=== PATIENT | female | born 1935 | race Caucasian/White ===

== ENCOUNTER 2017-02-15 11:43 | Emergency (ER) | payer MEDICARE, OTHER ==
[2017-02-15 12:47] VITALS: BP 180/100
--- NOTE | 2017-02-15 14:48 | UC ---
Valentín Sarabia Billy, scribed for Ally Kim DO on 02/15/17 at 1226 . General HPI - HPI Summary HPI Summary: Patient is an 81 year-old female with a history of peripheral neuropathy coming to [facility] with her for evaluation of left-sided facial swelling/droop since waking up this morning at 0630. Patient states that her symptoms have significantly improved since onset this morning. She denies any pain or numbness on her face. Denies any other symptoms such as changes in balance, coordination, confusion, slurred speech, or numbness, tingling, or weakness in the extremities. Patient has a history of glaucoma and recently switched to new eyedrops 3 days ago. - History of Current Complaint Chief Complaint: UCGeneralIllness Stated Complaint: SWOLLEN FACE Time Seen by Provider: 02/15/17 12:20 Hx Obtained From: Patient Onset/Duration: Gradual Onset, Lasting Hours, Still Present Timing: Constant Onset Severity: Moderate Current Severity: Moderate Pain Intensity: 0 Character: left-sided facial droop Aggravating: none Alleviating: none Associated Signs & Symptoms: Positive: Edema - percieved swelling of the face. Negative: Confusion, Chest Pain, Dizziness, Diaphoresis, Headache, Nausea, Syncope, SOB - Allergy/Home Medications Allergies/Adverse Reactions: Allergies Allergy/AdvReac Type Severity Reaction Status Date / Time NSAIDs Allergy See Comment Verified 07/30/16 10:55 PMH/Surg Hx/FS Hx/Imm Hx Endocrine History Of: Reports: Thyroid Disease Denies: Diabetes Cardiovascular History Of: Reports: Cardiac Disorders - murmur, Hypertension Respiratory History Of: Denies: COPD, Asthma GI/ History Of: Denies: Ulcer Cancer History Of: Denies: Breast Cancer - Surgical History Surgical History: Yes Surgery Procedure, Year, and Place: SCOLIOSIS. tonsils, deviated septum, carpal tunnel, rashard, cataracts - Family History Known Family History: Positive: Hypertension Negative: Cardiac Disease, Diabetes, Renal Disease, Respiratory Disease, Blood Disorder - Social History Occupation: Retired Lives: With Family Alcohol Use: Weekly Alcohol Amount: 2/week Substance Use Type: None Smoking Status (MU): Never Smoked Tobacco Review of Systems Constitutional: Negative Skin: Negative Eyes: Negative ENT: Negative Respiratory: Negative Cardiovascular: Negative Gastrointestinal: Negative Genitourinary: Negative Motor: Negative Neurovascular: Negative Musculoskeletal: Negative Neurological: Other - left-sided facial droop Psychological: Negative All Other Systems Reviewed And Are Negative: Yes Physical Exam Triage Information Reviewed: Yes Appearance: Well-Appearing, No Pain Distress, Well-Nourished Vital Signs: Initial Vital Signs Temp 98.6 F 02/15/17 12:02 Pulse 61 02/15/17 12:02 Resp 18 02/15/17 12:02 Pulse Ox 98 02/15/17 12:02 Vital Signs Reviewed: Yes Eyes: Positive: Conjunctiva Clear. Negative: Discharge ENT: Positive: Normal ENT inspection Neck: Positive: Supple, Nontender Respiratory: Positive: Lungs clear, Normal breath sounds, No respiratory distress, No accessory muscle use Cardiovascular: Positive: RRR, No Murmur Musculoskeletal Exam: Normal Musculoskeletal: Positive: Strength Intact Neurological: Positive: Alert, Other: - Left-sided facial droop. Otherwise sensation and strength are intact and symmetrical bilaterally. Cranial nerves intact except for facial nerve. No droop visualized in the forehead or eyes. no cerebellar signs Psychological Exam: Normal Psychological: Positive: Age Appropriate Behavior Skin Exam: Normal, Other - Skin is warm and dry. There is no tenderness, induration, redness, swollen lymph nodes, or evidence of infection of the face. Course/Dx - Differential Dx - Multi-Symptom Differential Diagnoses: CVA, Other - tia, nerve palsy nos Provider Diagnoses: r/o cva - Physician Notifications Discussed Patient Care With: Dr. Haque ([facility]) @ [id number]: will see patient in the ED. Instructed by Provider To: Transfer Discharge - Discharge Plan Condition: Stable Disposition: TRANS HIGHER LVL OF CARE FAC Referrals: Bijan Mahmood MD [Primary Care Provider] - The documentation as recorded by the Valentín levy Billy accurately reflects the service I personally performed and the decisions made by me, Ally Kim DO.
== END 2017-02-15 12:57 | disposition short-term general hospital (02) ==
LOC: UCEAST 11:43
DX: R29.810 Facial weakness (principal); R60.0 Localized edema; Z88.6 Allergy status to analgesic agent; E07.9 Disorder of thyroid, unspecified; I10 Essential (primary) hypertension; Z90.49 Acquired absence of other specified parts of digestive tract; Z98.49 Cataract extraction status, unspecified eye
CPT/HCPCS: 99213; G0463

== ENCOUNTER 2017-02-15 13:28 | Emergency (ER) | payer MEDICARE, OTHER ==
[2017-02-15 15:34] LABS: Hematocrit 41 % (35-47); Hemoglobin 13.6 g/dl (12.0-16.0); Mean Corpuscular HGB Conc 34 g/dl (31-36); Mean Corpuscular Hemoglobin 29 pg (27-31); Mean Corpuscular Volume 85 fL (80-97); Mean Platelet Volume 8 um3 (7.4-10.4); Red Blood Count 4.76 10^6/ul (4.0-5.4); Red Cell Distribution Width 14 % (10.5-15); White Blood Count 9.9 10^3/ul (3.5-10.8)
[2017-02-15 16:18] LABS: Albumin 4.1 g/dL (3.2-5.2); BUN/Creatinine Ratio 16.2 (8-20); C Reactive Protein 53.34 mg/L (< 5.00); Calcium 9.7 mg/dL (8.6-10.3); EGFR African American 106.3 (>60); EGFR Non-African American 82.6 (>60); Globulin 3.4 g/dL (2-4); Potassium 4.5 mmol/L (3.5-5.0); Total Protein 7.5 g/dL (6.4-8.9)
[2017-02-15] MEDS ORDERED: Iohexol 300* (CONTRAST) 10 ML SDV IV ONE (16:22)
[2017-02-15 16:54] VITALS: BP 158/72
--- NOTE | 2017-02-15 16:57 | RAD ---
Indication: Left facial droop, stroke. CT of the brain was performed without IV contrast. Ventricular structures are midline. No midline shift is noted. Central and cortical atrophy noted. No evidence of intracranial mass or hemorrhage. Periventricular lucency consistent with chronic ischemic White matter change is noted. Mastoid air cells and paranasal sinuses are grossly unremarkable. IMPRESSION: Age-related atrophy with no evidence of intracranial mass or hemorrhage. Chronic ischemic White matter change is noted.
--- NOTE | 2017-02-15 17:38 | RAD ---
INDICATION: LEFT facial swelling. Question cellulitis and abscess. LEFT facial droop. COMPARISON: None. TECHNIQUE: Multidetector CT base of the skull through mandible with 75 mL Omnipaque 300 IV contrast. Multiplanar reformation. REPORT: Artifact from dental amalgam. Mild stranding in the LEFT face subcutaneous tissue plane extending down to the muscular fascia at the level of the mandibular body and angle. No loculated abscess collection evident. Unremarkable parotid and LEFT submandibular glands. Fatty replacement of the RIGHT submandibular gland. No lymphadenopathy evident within the [id number]. Unremarkable pharyngeal mucosal space contours and symmetric parapharyngeal fat. Patent bilateral internal jugular veins. Calcific plaque at the carotid bifurcations with suggestion of approximate 50% LEFT proximal internal carotid artery stenosis. No orbital inflammatory process or hematoma evident. Calcification of the RIGHT ocular lens noted. Mild retained secretions at the ethmoid sinuses. Negative for paranasal sinus fluid levels. Clear mastoid air spaces. Negative for fracture or osteolysis. Multilevel cervical degenerative spondylosis and facet joint osteoarthritis. Disc space narrowing is severe at C3-C4, C4-C5, and C5-C6. IMPRESSION: 1. Mild LEFT face soft tissue edema which may reflect cellulitis in the appropriate clinical context. No loculated abscess collection evident. 2. Calcific plaque at the carotid bifurcations with suggestion of approximate 50% LEFT proximal internal carotid artery stenosis.
--- NOTE | 2017-02-15 18:59 | ED ---
Francisco Sarabia Adam, scribed for Oscar Haque MD on 02/15/17 at 1421 . Neurological HPI - HPI Summary HPI Summary: Pt is an 81 year old female presenting with facial swelling. She states that when she woke up this morning the left side of her face was swollen. She states that it felt "stretchy" when she tried to smile. Since then she states that the swelling has decreased. She also presents with redness in the cheeks which is new. She denies drooling, difficulty forming words, and difficulty swallowing or drinking. She denies any pain/weakness in her extremities, blurred/double vision, abdominal pain, CARDOZA, neck pain, dental pain (teeth cleaned last month), or new eye complaints (she has chronic dryness and uses drops). She recently began using new eye drops but she states that the ingredients are the same as the old drops. She denies any recent illness, recent falls, or eating anything out of the ordinary. PMHx of HTN, peripheral neuropathy, and glaucoma. No Hx of CVA or [place]. Former smoker ("years ago"). - History of Current Complaint Chief Complaint: EDNeurologicalDeficit Stated Complaint: STROKE LIKE SYMPTOMS Time Seen by Provider: 02/15/17 14:06 Hx Obtained From: Patient Hx Last Menstrual Period: post menopausal Onset/Duration: Gradual Onset, Started hours ago, Still Present Timing: Constant Onset Severity: Moderate Current Severity: Mild Neurological Deficit Location: Facial Pain Intensity: 0 Pain Scale Used: 0-10 Numeric Character: Other: - Facial swelling Aggravating: Unknown Alleviating: Nothing Associated Signs and Symptoms: Positive: Negative - Allergy/Home Medications Allergies/Adverse Reactions: Allergies Allergy/AdvReac Type Severity Reaction Status Date / Time NSAIDs Allergy See Comment Verified 07/30/16 10:55 PMH/Surg Hx/FS Hx/Imm Hx Endocrine/Hematology History: Reports: Hx Thyroid Disease Denies: Hx Diabetes Cardiovascular History: Reports: Hx Hypertension Respiratory History: Denies: Hx Asthma, Hx Chronic Obstructive Pulmonary Disease (COPD) GI History: Denies: Hx Ulcer Musculoskeletal History: Reports: Hx Rheumatoid Arthritis Denies: Hx Osteoporosis - Surgical History Surgery Procedure, Year, and Place: SCOLIOSIS. tonsils, deviated septum, carpal tunnel, rashard, cataracts Infectious Disease History: No Infectious Disease History: Denies: Hx Hepatitis, Hx Human Immunodeficiency Virus (HIV), History Other Infectious Disease, Traveled Outside the [place] in Last 30 Days - Family History Known Family History: Negative: Renal Disease, Respiratory Disease, Blood Disorder - Social History Occupation: Retired Lives: With Family - Alcohol Use: Weekly Alcohol Amount: 2/week Hx Substance Use: No Substance Use Type: Reports: None Hx Tobacco Use: Yes Smoking Status (MU): Former Smoker - "Years ago" Review of Systems Negative: Fever Negative: Blurred Vision, Diplopia Negative: Dental Pain Negative: Abdominal Pain Positive: Edema - Left side of face. Negative: Myalgia Positive: Other - Redness in cheeks Neurological: Negative Negative: Headache, Weakness All Other Systems Reviewed And Are Negative: Yes Physical Exam - Summary Physical Exam Summary: The patient is well-nourished in no acute distress and in no acute pain. The skin is warm and dry and skin color reflects adequate perfusion. HEENT: Teeth in good repair and nontender to percussion. The head is normocephalic and atraumatic. The pupils are pinpoint, equal and reactive. No ptosis. Erythema around the eyes and cheeks. Swelling of left maxillary area with some warmth. Nares are patent and without drainage. Mouth reveals moist mucous membranes and the throat is without erythema and exudate. The external ears are intact. TM's normal. Neck is supple with full range of motion and non-tender. There are no carotid bruits. There is no neck vein distension. Respiratory: Chest is non-tender. Lungs are clear to auscultation and breath sounds are symmetrical and equal. Cardiovascular: Heart is regular rate and rhythm. There is no murmur or rub auscultated. There is no peripheral edema and pulses are symmetrical and equal. Abdomen: The abdomen is soft and non-tender. There are normal bowel sounds heard in all four quadrants and there is no organomegaly palpated. Musculoskeletal: There is no back pain noted. Extremities are non-tender with full range of motion. There is good capillary refill. There is no peripheral edema or calf tenderness elicited. Neurological: Patient is alert and oriented to person, place and time. The patient has symmetrical motor strength in all four extremities. Cranial nerves are grossly intact. Deep tendon reflexes are symmetrical and equal in all four extremities. Negative drift of upper and lower extremities. Able to do finger-to -nose. Able to do [id number]. No focal weakness noted. Psychiatric: The patient has an appropriate affect and does not exhibit any anxiety or depression. Triage Information Reviewed: Yes Vital Signs On Initial Exam: Initial Vitals Temp Pulse Resp BP Pulse Ox 98.6 F 58 18 159/77 98 02/15/17 13:58 02/15/17 13:58 02/15/17 13:58 02/15/17 13:58 02/15/17 13:58 Vital Signs Reviewed: Yes Diagnostics - Vital Signs Vital Signs Temp Pulse Resp BP Pulse Ox 02/15/17 13:58 98.6 F 58 18 159/77 98 - Laboratory Lab Results: Lab Results 02/15/17 02/15/17 02/15/17 Range/Units 15:25 15:25 15:25 WBC 9.9 (3.5-10.8) 10^3/ul RBC 4.76 (4.0-5.4) 10^6/ul Hgb 13.6 (12.0-16.0) g/dl Hct 41 (35-47) % MCV 85 (80-97) fL MCH 29 (27-31) pg MCHC 34 (31-36) g/dl RDW 14 (10.5-15) % Plt Count 469 H (150-450) 10^3/ul MPV 8 (7.4-10.4) um3 Neut % (Auto) 75.5 (38-83) % Lymph % (Auto) 8.8 L (25-47) % [place] % (Auto) 9.9 H (1-9) % Eos % (Auto) 5.3 (0-6) % Baso % (Auto) 0.5 (0-2) % Absolute Neuts (auto) 7.5 (1.5-7.7) 10^3/ul Absolute Lymphs (auto) 0.9 L (1.0-4.8) 10^3/ul Absolute Monos (auto) 1.0 H (0-0.8) 10^3/ul Absolute Eos (auto) 0.5 (0-0.6) 10^3/ul Absolute Basos (auto) 0.1 (0-0.2) 10^3/ul Absolute Nucleated RBC 0.01 10^3/ul Nucleated RBC % 0.1 Sodium 130 L (133-145) mmol/L Potassium 4.5 (3.5-5.0) mmol/L Chloride 94 L (101-111) mmol/L Carbon Dioxide 32 (22-32) mmol/L Anion Gap 4 (2-11) mmol/L BUN 11 (6-24) mg/dL Creatinine 0.68 (0.51-0.95) mg/dL Est GFR ( Amer) 106.3 (>60) Est GFR (Non-Af Amer) 82.6 (>60) BUN/Creatinine Ratio 16.2 (8-20) Glucose 102 H (70-100) mg/dL Lactic Acid 0.6 (0.5-2.0) mmol/L Calcium 9.7 (8.6-10.3) mg/dL Total Bilirubin 1.00 (0.2-1.0) mg/dL AST 24 (13-39) U/L ALT 13 (7-52) U/L Alkaline Phosphatase 50 (34-104) U/L C-Reactive Protein 53.34 H (< 5.00) mg/L Total Protein 7.5 (6.4-8.9) g/dL Albumin 4.1 (3.2-5.2) g/dL Globulin 3.4 (2-4) g/dL Albumin/Globulin Ratio 1.2 (1-3) Result Diagrams: 02/15/17 15:25 02/15/17 15:25 Lab Statement: Any lab studies that have been ordered have been reviewed, and results considered in the medical decision making process. - CT BRAIN CT Interpretation Completed By: Radiologist - IMPRESSION: Age-related atrophy with no evidence of intracranial mass or hemorrhage. Chronic ischemic White matter change is noted. MAXILLOFACIAL CT Interpretation Completed By: Radiologist - IMPRESSION: 1. Mild LEFT face soft tissue edema which may reflect cellulitis in the appropriate clinical context. No loculated abscess collection evident. 2. Calcific plaque at the carotid bifurcations with suggestion of approximate 50% LEFT proximal internal carotid artery stenosis. Re-Evaluation - Re-Evaluation First Eval Re-Evaluation Time: 18:05 - Reviewed CT results. Patient will be discharged home with abx. Course/Dx - Differential Dx Differential Diagnoses Neuro: Positive: Cerebrovascular Accident, Transient Ischemic Attack, Other - cellulitis - Diagnoses Provider Diagnoses: Facial cellulitis Discharge - Discharge Plan Condition: Stable Disposition: HOME Prescriptions: Cephalexin CAP* [Keflex CAP*] 500 mg PO QID #28 cap Patient Education Materials: Cellulitis (ED) Referrals: Bijan Mahmood MD [Primary Care Provider] - Additional Instructions: Follow up with Dr. Mahmood this week. The documentation as recorded by the Francisco levy Adam accurately reflects the service I personally performed and the decisions made by me, Oscar Haque MD.
== END 2017-02-15 18:41 | disposition home or self-care (01) ==
LOC: ED 13:28
DX: L03.211 Cellulitis of face (principal); R60.0 Localized edema; R29.810 Facial weakness; Z88.6 Allergy status to analgesic agent; E07.9 Disorder of thyroid, unspecified; I10 Essential (primary) hypertension; Z90.49 Acquired absence of other specified parts of digestive tract; Z98.49 Cataract extraction status, unspecified eye
CPT/HCPCS: 36415; 70450; 70487; 80053; 83605; 85025; 86140; 99283; Q9967

== ENCOUNTER 2018-03-13 23:23 | Observation (INO) | payer MEDICARE, OTHER ==
[2018-03-13] MEDS ORDERED: Ondansetron INJ* 2 MG/ML VIAL IV ONE (23:47)
[2018-03-13] MEDS ORDERED: NS 0.9% 1000 ML* 1,000 ML IV ONE (23:47)
[2018-03-14 00:34] LABS: INR 0.9 (0.77-1.02)
[2018-03-14 00:40] LABS: EGFR Non-African American 55.4 (>60)
--- OUTSIDE RECORDS SUMMARY | 2018-03-14 00:41 | XMS REPORT ---
:1935 External Reference #:[id number] Author Organization [facility] Address [address] [address] Phone [phone] Care Team Providers Name Role Phone Bijan Mahmood MD Primary Care Physician Unavailable Payers Type Date Identification Numbers Payment Provider Subscriber Medicare Primary Effective: Policy Number: Medicare Marisa Sinclair 1998 [id number] PayID: [id number] [address] [place] [address] Medigap Part B Effective: Policy Number: Healthsmart Benefit Marisa Sinclair 2012 [id number] Solution Group Number: [id number] [address] PayID: [id number] VICTORIANO Botello [id number] Advance Directives Type Date Description Status Comment Other Directive 01/18/2016 Living Will Current and Verified Other Directive 07/11/2015 Health Care Proxy Current and Verified Problems Date Description Provider Status Onset: 02/09/2013 Benign essential hypertension Kayla Marinelli M.D. Active Onset: 02/09/2013 Menopausal and postmenopausal disorders Kayla Marinelli M.D. Active Onset: 02/09/2013 Hypothyroidism Kayla Marinelli M.D. Active Onset: 02/09/2013 Benign paroxysmal positional vertigo Kayla Marinelli M.D. Active Onset: 02/09/2013 Sprain of wrist and/or hand Kayla Marinelli M.D. 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 Cigarette Use Pack Years - 11 ETOH Use 02/23/2017 2 drinks per week Smoking Patient is a former smoker Recreational Drug Use Never Used Drugs Smoking Started at 16, quit smoking in 1992, was a light smoker Daily Caffeine Consumes on average 1 cup of regular coffee per day Exercise Type/Frequency Exercises rarely Exercise Type/Frequency used to walk before vertigo General Hx Text 2 children Allergies, Adverse Reactions, Alerts Date Description Reaction Status Severity Comments 02/09/2013 NKDA active Medications Medication Date Status Form Strength Qnty SIG Indications Ordering Provider Amlodipine 03/14/ Active Tablets 5mg 90tabs take 1 I10 Bijan Besylate 2012 tablet by mary Marcano.DTete,FACP every morning Restasis 02/09/ Active Emulsion 0.05% 2units one gtts Kayla 2012 ou once a karl Marinelli M.D. Blood Pressure 02/09/ Active Kit 1units ck in am I10 Kayla Monitor 2012 and Yves, Automatic With evening M.D. Small Cuff Enalapril 02/09/ Active Tablets 20mg 180tab take 1 Bijan Maleate 2012 s tablet by mary Marcano.Norbert,FACP twice a day Levothyroxine 02/09/ Active Tablets 50mcg 90tabs take 1 Bijan Sodium 2012 tablet by mary Marcano M.D.,FACP once daily Vitamin B-12 CR / Active Tablets ER 1000mcg 1 po qd Unknown 0000 Mag64 / Active Tablets ER 535(64mg) once a Unknown 0000 mg day Vitamin B 6 / Active Lozenges 100mcg once a Unknown 0000 day Aspirin 81 / Active Tablets DR 81mg po qd Unknown 0000 Caltrate 600+D / Active Chewtabs 600-400mg- 1 po bid Unknown 0000 Unit Miralax / Active Packet [id number] 1mon 17 gm qd Unknown 0000 prn Cosopt PF / Active Solution 22.3-6.8mg Unknown 0000 /ml Latanoprost / Active Solution 0.005% both eyes Unknown 0000 once daily Ketoconazole 07/31/ Hx Cream 2% 60gm apply Other 2016 - once Ordering 02/23/ daily to Provider 2017 affected area Alprazolam 04/20/ Hx Tablets 0.25mg 2tabs 1/2- 1 300.09 Kayla 2012 - tab 20 Yves, 09/25/ min prior M.D. 2012 to dental work Amlodipine 03/14/ Hx Tablets 5mg 30tabs take 1 401.1 Kayla Besylate 2012 - tablet by Yves, 08/16/ mouth M.D. 2013 every morning Chlorthalidone 02/23/ Hx Tablets 25mg 30tabs 1 po am 401.1 Kayla 2012 - Yves 09/25/ M.D. 2012 Prazosin HCL 02/09/ Hx Capsules 2mg 1 po qd Kayla 2012 - Yves, 12/07/ M.D. 2013 Atenolol 02/09/ Hx Tablets 50mg 30tabs 11/16 tab Kayla 2012 - po at Yves, 03/14/ bedtime M.D. 2012 Dorzolamide 02/09/ Hx Solution 22.3-6.8mg 10ml one drop Kayla HCL/Timolol 2012 - /ml right eye Arline Marinelli 05/02/ bid M.D. 2013 Travatan Z 02/09/ Hx Solution 0.004% 5ml 1 drop in Kayla 2012 - right Yves, 11/24/ eyes qhs M.D. 2016 Prempro 02/09/ Hx Tablets 0.3-1.5mg 30tabs take 1 Kayla 2012 - tablet by Yves, 04/19/ mouth M.D. 2016 once weekly Glucosamine / Hx Capsules 1500Com 1 po bid Unknown Chondroitin 1500 0000 - Complex 2016 Cosopt PF / Hx Solution 22.3-6.8mg 1 gtt Sathya, 0000 - /ml right eye Hernandez, 02/23/ bid O.D. 2016 Timolol Maleate / Hx Solution 0.5% instill 1 Unknown 0000 - drop into 07/01/ both eyes 2017 twice a day Latanoprost / Hx Solution 0.005% Unknown 0000 - 2016 Vitamin B12 / Hx 1000mcg 1 daily Unknown 0000 - 2016 Zioptan / Hx Solution 0.0015% 1 gtt in Schwazr, 0000 - ou once a Peter S., 2017 Medications Administered in Office Medication Date Status Form Strength Qnty SIG Indications Ordering Provider PPD Administered Injection Bijan Mahmood M.D.,FACP Inj, Administered Injection Parveen Nitni Regadenoson, 013 Niall, 0.1 MG Charlotte, FACC, FASNC Technetium TC Administered Injection Parveen Nitin 99M 013 Niall TetrofCharlotte purcell, FAC, Per Unit Dose FASNC Up To 40 Millicuries Immunizations CPT Code Status Date Vaccine Reaction Lot # [id number] Given 08/18/2017 Influenza Virus 3Yrs & Over [id number] Given 02/23/2017 Pneumococcal Conjugate pt tolerated well ... [id number] Vaccine 13 Valent For no immediate Intramuscular Use [id number] [id number] Given 08/27/2016 Fluzone High Dose 22972 Given 09/05/2015 Influenza Virus Vaccine, Quadrivalent, Split, Preservative Free 91536 Given 08/15/2015 Influenza Virus Vaccine, [id number] Quadrivalent, Split, Preservative Free Q2037 Given 08/09/2014 Fluvirin Im 3Yrs And Older Q2039 Given 08/22/2013 Flu Vaccine NOS 12936 Given 11/15/2002 Pneumonia Vaccine Vital Signs Date Vital Result Comment 02/21/2018 Weight 135.00 lb Heart Rate 58 /min BP Systolic Sitting 132 mmHg BP Diastolic Sitting 60 mmHg Body Temperature 98.1 F O2 % BldC Oximetry 95 % 07/02/2017 Height 63 inches 5'3" Weight 140.00 lb Heart Rate 64 /min BP Systolic Sitting 138 mmHg BP Diastolic Sitting 84 mmHg Respiratory Rate 14 /min BMI (Body Mass Index) 24.8 kg/m2 02/23/2017 Weight 120.00 lb Heart Rate 61 /min BP Systolic Sitting 134 mmHg BP Diastolic Sitting 86 mmHg Body Temperature 97.7 F O2 % BldC Oximetry 91 % 11/24/2016 Weight 139.00 lb with shoes Heart Rate 83 /min BP Systolic Sitting 138 mmHg BP Diastolic Sitting 92 mmHg O2 % BldC Oximetry 98 % 05/14/2016 Height 63 inches 5'3" Weight 137.00 lb Heart Rate 76 /min BP Systolic Sitting 134 mmHg BP Diastolic Sitting 74 mmHg Respiratory Rate 14 /min BMI (Body Mass Index) 24.3 kg/m2 04/20/2016 Height 63 inches 5'3" Weight 135.00 lb Heart Rate 60 /min BP Systolic Sitting 112 mmHg BP Diastolic Sitting 68 mmHg Respiratory Rate 16 /min BMI (Body Mass Index) 23.9 kg/m2 01/23/2016 Height 63 inches 5'3" Weight 135.00 lb Heart Rate 61 /min BP Systolic Sitting 118 mmHg BP Diastolic Sitting 80 mmHg O2 % BldC Oximetry 96 % BMI (Body Mass Index) 23.9 kg/m2 08/15/2015 Height 63 inches 5'3" Weight 136.25 lb Heart Rate 60 /min BP Systolic Sitting 132 mmHg BP Diastolic Sitting 80 mmHg Body Temperature 97.6 F O2 % BldC Oximetry 98 % BMI (Body Mass Index) 24.1 kg/m2 05/13/2015 Height 63 inches 5'3" Weight 139.00 lb Heart Rate 64 /min BP Systolic Sitting 130 mmHg BP Diastolic Sitting 84 mmHg Respiratory Rate 16 /min BMI (Body Mass Index) 24.6 kg/m2 02/14/2015 Weight 139.25 lb Heart Rate 77 /min BP Systolic Sitting 138 mmHg BP Diastolic Sitting 88 mmHg Body Temperature 97.4 F O2 % BldC Oximetry 96 % 08/16/2014 Height 63 inches 5'3" Weight 140.00 lb Heart Rate 84 /min BP Systolic Sitting 142 mmHg BP Diastolic Sitting 90 mmHg BMI (Body Mass Index) 24.8 kg/m2 05/14/2014 Height 63 inches 5'3" Weight 141.00 lb Heart Rate 76 /min BP Systolic Sitting 140 mmHg BP Diastolic Sitting 80 mmHg Respiratory Rate 16 /min BMI (Body Mass Index) 25.0 kg/m2 12/07/2013 Heart Rate 66 /min BP Systolic Sitting 120 mmHg BP Diastolic Sitting 70 mmHg Respiratory Rate 16 /min 09/29/2013 Weight 137.00 lb Heart Rate 71 /min BP Systolic Sitting 144 mmHg BP Diastolic Sitting 80 mmHg 09/25/2013 Heart Rate 76 /min BP Systolic Sitting 124 mmHg BP Diastolic Sitting 82 mmHg Respiratory Rate 18 /min 05/16/2013 Weight 134.00 lb Heart Rate 72 /min BP Systolic Sitting 168 mmHg BP Diastolic Sitting 83 mmHg 04/20/2013 Weight 136.00 lb Heart Rate 79 /min BP Systolic Sitting 161 mmHg BP Diastolic Sitting 92 mmHg 03/28/2013 Weight 136.00 lb Heart Rate 60 /min BP Systolic Sitting 160 mmHg BP Diastolic Sitting 94 mmHg 03/14/2013 Weight 137.00 lb Heart Rate 64 /min BP Systolic Sitting 170 mmHg BP Diastolic Sitting 86 mmHg 02/23/2013 Weight 139.25 lb Heart Rate 51 /min BP Systolic Sitting 158 mmHg BP Diastolic Sitting 71 mmHg 02/09/2013 Height 61.5 inches 5'1.50" Weight 137.25 lb Heart Rate 63 /min BP Systolic 189 mmHg BP Diastolic 93 mmHg BP Systolic Sitting 161 mmHg BP Diastolic Sitting 84 mmHg BMI (Body Mass Index) 25.5 kg/m2 Results Test Date Test Result H/L Range Note BMP Basic Metabolic Panel (8) 12/02/2017 Sodium 133 mmol/L 133-145 1 Potassium 3.8 mmol/L 3.5-5.0 1 Chloride 97 mmol/L Low 101-111 1 Co2 Carbon Dioxide 30 mmol/L 22-32 1 Anion Gap 6 mmol/L 2-11 1 Glucose 101 mg/dL High 70-100 1 Blood Urea Nitrogen 15 mg/dL 6-24 1 Creatinine 0.74 mg/dL 0.51-0.95 1 BUN/Creatinine Ratio 20.3 High 8-20 1 Calcium 10.3 mg/dL 8.6-10.3 1 Egfr Non- 74.8 >60 1 Egfr 96.2 >60 1, 2 Laboratory test finding 12/02/2017 TSH (Thyroid Stim Horm) 0.77 mcIU/mL 0.34-5.60 1 CBC W/Auto Diff 12/02/2017 White Blood Count 6.3 10^3/uL 3.5-10.8 1 Red Blood Count 4.41 10^6/uL 4.0-5.4 1 Hemoglobin 13.2 g/dL 12.0-16.0 1 Hematocrit 39 % 35-47 1 Mean Corpuscular Volume 88 fL 80-97 1 Mean Corpuscular Hemoglobin 30 pg 27-31 1 Mean Corpuscular HGB Conc 34 g/dL 31-36 1 Red Cell Distribution Width 15 % 10.5-15 1 Platelet Count 518 10^3/uL High 150-450 1 Mean Platelet Volume 9 um3 7.4-10.4 1 Abs Neutrophils 4.1 10^3/uL 1.5-7.7 1 Abs Lymphocytes 1.0 10^3/uL 1.0-4.8 1 Abs Monocytes 0.7 10^3/uL 0-0.8 1 Abs Eosinophils 0.4 10^3/uL 0-0.6 1 Abs Basophils 0 10^3/uL 0-0.2 1 Abs Nucleated RBC 0 10^3/uL 1 Granulocyte % 65.9 % 38-83 1 Lymphocyte % 16.6 % Low 25-47 1 Monocyte % 11.2 % High 1-9 1 Eosinophil % 5.9 % 0-6 1 Basophil % 0.4 % 0-2 1 Nucleated Red Blood Cells % 0.1 1 CBC Auto Diff 02/15/2017 White Blood Count 9.9 10^3/uL 3.5-10.8 Red Blood Count 4.76 10^6/uL 4.0-5.4 Hemoglobin 13.6 g/dL 12.0-16.0 Hematocrit 41 % 35-47 Mean Corpuscular Volume 85 fL 80-97 Mean Corpuscular Hemoglobin 29 pg 27-31 Mean Corpuscular HGB Conc 34 g/dL 31-36 Red Cell Distribution Width 14 % 10.5-15 Platelet Count 469 10^3/uL High 150-450 Mean Platelet Volume 8 um3 7.4-10.4 Abs Neutrophils 7.5 10^3/uL 1.5-7.7 Abs Lymphocytes 0.9 10^3/uL Low 1.0-4.8 Abs Monocytes 1.0 10^3/uL High 0-0.8 Abs Eosinophils 0.5 10^3/uL 0-0.6 Abs Basophils 0.1 10^3/uL 0-0.2 Abs Nucleated RBC 0.01 10^3/uL Granulocyte % 75.5 % 38-83 Lymphocyte % 8.8 % Low 25-47 Monocyte % 9.9 % High 1-9 Eosinophil % 5.3 % 0-6 Basophil % 0.5 % 0-2 Nucleated Red Blood Cells % 0.1 Laboratory test finding 02/15/2017 Lactic Acid 0.6 mmol/L 0.5-2.0 3 Comp Metabolic Panel 02/15/2017 Sodium 130 mmol/L Low 133-145 Potassium 4.5 mmol/L 3.5-5.0 Chloride 94 mmol/L Low 101-111 Co2 Carbon Dioxide 32 mmol/L 22-32 Anion Gap 4 mmol/L 2-11 Glucose 102 mg/dL High 70-100 Blood Urea Nitrogen 11 mg/dL 6-24 Creatinine 0.68 mg/dL 0.51-0.95 BUN/Creatinine Ratio 16.2 8-20 Calcium 9.7 mg/dL 8.6-10.3 Total Protein 7.5 g/dL 6.4-8.9 Albumin 4.1 g/dL 3.2-5.2 Globulin 3.4 g/dL 2-4 Albumin/Globulin Ratio 1.2 1-3 Total Bilirubin 1.00 mg/dL 0.2-1.0 Alkaline Phosphatase 50 U/L 34-104 Alt 13 U/L 7-52 Ast 24 U/L 13-39 Egfr Non- 82.6 >60 Egfr 106.3 >60 4 Laboratory test finding 02/15/2017 C Reactive Protein 53.34 mg/L High &lt ; 5.00 5 Basic Metabolic Panel 12/03/2016 Sodium 134 mmol/L 133-145 Potassium 4.1 mmol/L 3.5-5.0 Chloride 98 mmol/L Low 101-111 Co2 Carbon Dioxide 32 mmol/L 22-32 Anion Gap 4 mmol/L 2-11 Glucose 92 mg/dL 70-100 Blood Urea Nitrogen 16 mg/dL 6-24 Creatinine 0.85 mg/dL 0.51-0.95 BUN/Creatinine Ratio 18.8 8-20 Calcium 9.7 mg/dL 8.6-10.3 Egfr Non- 63.9 >60 Egfr 82.1 >60 6 Laboratory test finding 12/03/2016 TSH (Thyroid Stim Horm) 1.20 mcIU/mL 0.34-5.60 7 CBC Auto Diff 12/03/2016 White Blood Count 7.6 10^3/uL 3.5-10.8 Red Blood Count 4.10 10^6/uL 4.0-5.4 Hemoglobin 12.7 g/dL 12.0-16.0 Hematocrit 37 % 35-47 Mean Corpuscular Volume 90 fL 80-97 Mean Corpuscular Hemoglobin 31 pg 27-31 Mean Corpuscular HGB Conc 34 g/dL 31-36 Red Cell Distribution Width 14 % 10.5-15 Platelet Count 354 10^3/uL 150-450 Mean Platelet Volume 9 um3 7.4-10.4 Abs Neutrophils 5.4 10^3/uL 1.5-7.7 Abs Lymphocytes 0.8 10^3/uL Low 1.0-4.8 Abs Monocytes 0.7 10^3/uL 0-0.8 Abs Eosinophils 0.6 10^3/uL 0-0.6 Abs Basophils 0.1 10^3/uL 0-0.2 Abs Nucleated RBC 0 10^3/uL Granulocyte % 71.3 % 38-83 Lymphocyte % 10.9 % Low 25-47 Monocyte % 9.1 % High 1-9 Eosinophil % 8.0 % High 0-6 Basophil % 0.7 % 0-2 Nucleated Red Blood Cells % 0.1 Laboratory test finding 01/16/2016 TSH (Thyroid Stim 1.49 ?IU/mL 0.34- 5.60 8, 9 Horm) Free T4 (Free Thyroxine) 0.96 ng/dL 0.61-1.12 8, 10 Comp Metabolic Panel 01/16/2016 Sodium 135 mmol/L 133-145 8 Potassium 4.3 mmol/L 3.5-5.0 8 Chloride 98 mmol/L Low 101-111 8 Co2 Carbon Dioxide 32 mmol/L 22-32 8 Anion Gap 5 mmol/L 2-11 8 Glucose 99 mg/dL 70-100 8 Blood Urea Nitrogen 18 mg/dL 6-24 8 Creatinine 0.81 mg/dL 0.51-0.95 8 BUN/Creatinine Ratio 22.2 High 8-20 8 Calcium 9.8 mg/dL 8.6-10.3 8 Total Protein 7.6 g/dL 6.4-8.9 8 Albumin 4.2 g/dL 3.2-5.2 8 Globulin 3.4 g/dL 2-4 8 Albumin/Globulin Ratio 1.2 1-3 8 Total Bilirubin 0.80 mg/dL 0.2-1.0 8 Alkaline Phosphatase 53 U/L 34-104 8 Alt 15 U/L 7-52 8 Ast 27 U/L 13-39 8 Egfr Non- 67.7 >60 8 Egfr 87.1 >60 8, 11 Lipid Profile (Trig/Chol/HDL) 01/16/2016 Triglycerides 42 mg/dL 8, 12 Cholesterol 141 mg/dL 8, 13 HDL Cholesterol 80.1 mg/dL 8, 14 LDL Cholesterol 53 mg/dL 8, 15 Comp Metabolic Panel 02/07/2015 Sodium 135 mmol/L 133-145 8 Potassium 4.1 mmol/L 3.5-5.0 8 Chloride 99 mmol/L Low 101-111 8 Co2 Carbon Dioxide 32 mmol/L 22-32 8 Anion Gap 4 mmol/L 2-11 8 Glucose 98 mg/dL 70-100 8 Blood Urea Nitrogen 17 mg/dL 6-24 8 Creatinine 0.84 mg/dL 0.51-0.95 8 BUN/Creatinine Ratio 20.2 High 8-20 8 Calcium 9.8 mg/dL 8.6-10.3 8 Total Protein 7.7 g/dL 6.4-8.9 8 Albumin 4.2 g/dL 3.2-5.2 8 Globulin 3.5 g/dL 2-4 8 Albumin/Globulin Ratio 1.2 1-3 8 Total Bilirubin 0.80 mg/dL 0.2-1.0 8 Alkaline Phosphatase 49 U/L 34-104 8 Alt 15 U/L 7-52 8 Ast 25 U/L 13-39 8 Egfr Non- 65.1 >60 8 Egfr 83.7 >60 8, 16 Laboratory test 02/07/2015 TSH (Thyroid 1.41 IU/mL 0.34-5.60 8, 17 finding Stimulating Horm) Free T4 0.92 ng/mL 0.61-1.12 8, 18 Lipid Profile (Trig/Chol/HDL) 02/07/2015 Triglycerides 36 mg/dL 8, 19 Cholesterol 137 mg/dL 8, 20 HDL Cholesterol 79.5 mg/dL 8, 21 LDL Cholesterol 50 mg/dL 8, 22 CBC Auto Diff 02/07/2015 White Blood Count 5.9 10^3/uL 4.8-10.8 8 Red Blood Count 4.53 10^6/uL 4.0-5.4 8 Hemoglobin 13.9 g/dL 12.0-16.0 8 Hematocrit 41 % 35-47 8 Mean Corpuscular Volume 91 fL 80-97 8 Mean Corpuscular Hemoglobin 31 pg 27-31 8 Mean Corpuscular HGB Conc 34 g/dL 31-36 8 Red Cell Distribution Width 14 % 10.5-15 8 Platelet Count (SEE NOTE) 10^3/uL 150-450 8, 23 Mean Platelet Volume (SEE NOTE) um3 7.4-10.4 8, 24 Abs Neutrophils 3.5 10^3/uL 1.5-7.7 8 Abs Lymphocytes 0.9 10^3/uL Low 1.0-4.8 8 Abs Monocytes 0.7 10^3/uL 0-0.8 8 Abs Eosinophils 0.8 10^3/uL High 0-0.6 8 Abs Basophils 0 10^3/uL 0-0.2 8 Abs Nucleated RBC 0.01 10^3/uL 8 Granulocyte % 59.9 % 38-83 8 Lymphocyte % 15.4 % Low 25-47 8 Monocyte % 11.1 % High 1-9 8 Eosinophil % 13.0 % High 0-6 8 Basophil % 0.6 % 0-2 8 Nucleated Red Blood Cells % 0.2 8 Laboratory test finding 08/16/2014 TSH (Thyroid Stimulating 0.98 IU/mL 0.34-5.60 Horm) Free T4 0.90 ng/mL 0.61-1.12 Comp Metabolic Panel 08/16/2014 Sodium 131 mmol/L Low 133-145 Potassium 5.0 mmol/L 3.7-5.6 Chloride 95 mmol/L Low 101-111 Co2 Carbon Dioxide 32 mmol/L 22-32 Anion Gap 4 mmol/L 2-11 Glucose 71 mg/dL 70-100 Blood Urea Nitrogen 13 mg/dL 6-24 Creatinine 0.77 mg/dL 0.51-0.95 BUN/Creatinine Ratio 16.9 8-20 Calcium 10.1 mg/dL 8.6-10.3 Total Protein 8.3 g/dL 6.4-8.9 Albumin 4.4 g/dL 3.2-5.2 Globulin 3.9 g/dL 2-4 Albumin/Globulin Ratio 1.1 1-3 Total Bilirubin 0.60 mg/dL 0.2-1.0 Alkaline Phosphatase 45 U/L 34-104 Alt 15 U/L 7-52 Ast 26 U/L 13-39 Egfr Non- 72.1 >60 Egfr 92.8 >60 25 Protein Electrophoresis 01/05/2014 Total Protein(Pep) 8.1 g/dL 6.3 - 7.9 Albumin 3.7 g/dL 3.4-4.7 Alpha-1 Globulin 0.3 g/dL 0.1-0.3 Alpha-2 Globulin 1.0 g/dL 0.6-1.0 Beta Globulin 0.7 g/dL 0.7-1.2 Gamma Globulin 2.4 g/dL 0.6-1.6 Albumin/Globulin Ratio 0.84 Impression See Comment 26 Laboratory test finding 01/05/2014 Vitamin B12 1085 pg/mL High 180-914 27 Folate 12.93 ng/mL >3.99 Free T4 0.87 ng/mL 0.61-1.12 TSH (Thyroid Stimulating Horm) 1.44 IU/mL 0.34-5.60 Basic Metabolic Panel 09/29/2013 Sodium 133 mmol/L 133-145 Potassium 5.1 mmol/L High 3.5-5.0 Chloride 97 mmol/L Low 101-111 Co2 Carbon Dioxide 32.0 mmol/L 22-32 Anion Gap 4.0 mmol/L 2-11 Glucose 75 mg/dL 70-100 Blood Urea Nitrogen 12 mg/dL 6-24 Creatinine 0.80 mg/dL 0.50-1.40 BUN/Creatinine Ratio 15.0 8-20 Calcium 9.9 mg/dL 8.1-9.9 Egfr Non- 69.2 >60 Egfr 89.0 >60 28 CBC Auto Diff 05/16/2013 White Blood Count 8.7 10^3/uL 4.8-10.8 Red Blood Count 4.46 10^6/uL 4.0-5.4 Hemoglobin 13.6 g/dL 12.0-16.0 Hematocrit 40 % 35-47 Mean Corpuscular Volume 90 fL 80-97 Mean Corpuscular Hemoglobin 31 pg 27-31 Mean Corpuscular HGB Conc 34 g/dL 31-36 Red Cell Distribution Width 14 % 10.5-15 Platelet Count 499 10^3/uL High 150-450 Mean Platelet Volume 10 um3 7.4-10.4 Abs Neutrophils 5.5 10^3/uL 1.5-7.7 Abs Lymphocytes 1.2 10^3/uL 1.0-4.8 Abs Monocytes 0.9 10^3/uL High 0-0.8 Abs Eosinophils 1.0 10^3/uL High 0-0.6 Abs Basophils 0 10^3/uL 0-0.2 Abs Nucleated RBC 0 10^3/uL Granulocyte % 63.2 % 38-83 Lymphocyte % 14.3 % Low 25-47 Monocyte % 10.1 % High 1-9 Eosinophil % 11.9 % High 0-6 Basophil % 0.5 % 0-2 Nucleated Red Blood Cells % 0 Lipid Profile (Trig/Chol/HDL) 04/26/2013 Triglycerides 33 mg/dL Low 40- 200 Cholesterol 138 mg/dL Less than 200 HDL Cholesterol 81 mg/dL High 40-60 29 Cholesterol/HDL Ratio 1.7 Average 1-4.44 LDL Cholesterol 50.4 Less Than 100 30 Comp Metabolic Panel 04/26/2013 Sodium 130 mmol/L Low 133-145 Potassium 4.4 mmol/L 3.5-5.0 Chloride 96 mmol/L Low 101-111 Co2 Carbon Dioxide 29.0 mmol/L 22-32 Anion Gap 5.0 mmol/L 2-11 Glucose 109 mg/dL High 70-100 Blood Urea Nitrogen 11 mg/dL 6-24 Creatinine 0.70 mg/dL 0.50-1.40 BUN/Creatinine Ratio 15.7 8-20 Calcium 9.6 mg/dL 8.1-9.9 Total Protein 7.6 g/dL 6.2-8.1 Albumin 3.9 g/dL 3.2-5.2 Globulin 3.7 g/dL 2-4 Albumin/Globulin Ratio 1.1 1-3 Total Bilirubin 0.8 mg/dL 0.4-1.5 Alkaline Phosphatase 47 U/L 30-110 Alt 18 U/L 14-54 Ast 29 U/L 12-42 Egfr Non- 80.7 >60 Egfr 103.8 >60 31 Basic Metabolic Panel 04/17/2013 Sodium 128 mmol/L Low 133-145 Potassium 4.2 mmol/L 3.5-5.0 Chloride 93 mmol/L Low 101-111 Co2 Carbon Dioxide 28.0 mmol/L 22-32 Anion Gap 7.0 mmol/L 2-11 Glucose 96 mg/dL 70-100 Blood Urea Nitrogen 11 mg/dL 6-24 Creatinine 0.80 mg/dL 0.50-1.40 BUN/Creatinine Ratio 13.8 8-20 Calcium 9.5 mg/dL 8.1-9.9 Egfr Non- 69.2 >60 Egfr 89.0 >60 32 Laboratory test finding 04/17/2013 Magnesium 2.0 mg/dL 1.7-2.6 TSH (Thyroid Stimulating Horm) 1.12 miu/mL 0.34-5.60 CBC No Diff 04/17/2013 White Blood Count 8.3 10^3/uL 4.8-10.8 Red Blood Count 4.55 10^6/uL 4.0-5.4 Hemoglobin 14.0 g/dL 12.0-16.0 Hematocrit 41 % 35-47 Mean Corpuscular Volume 90 fL 80-97 Mean Corpuscular Hemoglobin 31 pg 27-31 Mean Corpuscular HGB Conc 34 g/dL 31-36 Red Cell Distribution Width 13 % 10.5-15 Laboratory test finding 03/14/2013 Rheumatoid Factor <15 IU/mL <15 33 Cyclic Citrullinated Pept IgG <15.6 U 34 1 Giant Platelets 2 Because ethnic data is not always readily available, this report includes an eGFR for both -Americans and non- Americans. The National Kidney Disease Education Program (NKDEP) does not endorse the use of the MDRD equation for patients that are not between the ages of 18 and 70, are , have extremes of body size, muscle mass, or nutritional status, or are non- or non-. According to the National Kidney Foundation, irrespective of diagnosis, the stage of the disease is based on the level of kidney function: Stage Description GFR(mL/min/1.73 m(2)) 1 Kidney damage with normal or decreased GFR 90 2 Kidney damage with mild decrease in GFR 60-89 3 Moderate decrease in GFR 30-59 4 Severe decrease in GFR 15-29 5 Kidney failure <15 (or dialysis) 3 [facility] Severe Sepsis and Septic Shock Management Bundle Measure requires all lactic acids initially measuring >2.0 mmol/L be repeated. 4 Because ethnic data is not always readily available, this report includes an eGFR for both -Americans and non- Americans. The National Kidney Disease Education Program (NKDEP) does not endorse the use of the MDRD equation for patients that are not between the ages of 18 and 70, are , have extremes of body size, muscle mass, or nutritional status, or are non- or non-. According to the National Kidney Foundation, irrespective of diagnosis, the stage of the disease is based on the level of kidney function: Stage Description GFR(mL/min/1.73 m(2)) 1 Kidney damage with normal or decreased GFR 90 2 Kidney damage with mild decrease in GFR 60-89 3 Moderate decrease in GFR 30-59 4 Severe decrease in GFR 15-29 5 Kidney failure <15 (or dialysis) 5 Acute inflammation: >10.00 6 Because ethnic data is not always readily available, this report includes an eGFR for both -Americans and non- Americans. The National Kidney Disease Education Program (NKDEP) does not endorse the use of the MDRD equation for patients that are not between the ages of 18 and 70, are , have extremes of body size, muscle mass, or nutritional status, or are non- or non-. According to the National Kidney Foundation, irrespective of diagnosis, the stage of the disease is based on the level of kidney function: Stage Description GFR(mL/min/1.73 m(2)) 1 Kidney damage with normal or decreased GFR 90 2 Kidney damage with mild decrease in GFR 60-89 3 Moderate decrease in GFR 30-59 4 Severe decrease in GFR 15-29 5 Kidney failure <15 (or dialysis) 7 FASTING 10 HOUR 8 PT IS FASTING 9 PT IS FASTING 10 PT IS FASTING 11 Because ethnic data is not always readily available, this report includes an eGFR for both -Americans and non- Americans. The National Kidney Disease Education Program (NKDEP) does not endorse the use of the MDRD equation for patients that are not between the ages of 18 and 70, are , have extremes of body size, muscle mass, or nutritional status, or are non- or non-. According to the National Kidney Foundation, irrespective of diagnosis, the stage of the disease is based on the level of kidney function: Stage Description GFR(mL/min/1.73 m(2)) 1 Kidney damage with normal or decreased GFR 90 2 Kidney damage with mild decrease in GFR 60-89 3 Moderate decrease in GFR 30-59 4 Severe decrease in GFR 15-29 5 Kidney failure <15 (or dialysis) 12 Desirable <150 Borderline high 150-199 High 200-499 Very High >500 13 Desirable <200 Borderline high 200-239 High >239 14 Low <40 Desirable: 40-60 High: >60 15 Desirable: <100 mg/dL Near Optimal: 100-129 mg/dL Borderline High: 130-159 mg/dL High: 160-189 mg/dL Very High: >189 mg/dL 16 Because ethnic data is not always readily available, this report includes an eGFR for both -Americans and non- Americans. The National Kidney Disease Education Program (NKDEP) does not endorse the use of the MDRD equation for patients that are not between the ages of 18 and 70, are , have extremes of body size, muscle mass, or nutritional status, or are non- or non-. According to the National Kidney Foundation, irrespective of diagnosis, the stage of the disease is based on the level of kidney function: Stage Description GFR(mL/min/1.73 m(2)) 1 Kidney damage with normal or decreased GFR 90 2 Kidney damage with mild decrease in GFR 60-89 3 Moderate decrease in GFR 30-59 4 Severe decrease in GFR 15-29 5 Kidney failure <15 (or dialysis) 17 PT IS FASTING 18 PT IS FASTING 19 Desirable <150 Borderline high 150-199 High 200-499 Very High >500 20 Desirable <200 Borderline high 200-239 High >239 21 Low <40 Desirable: 40-60 High: >60 22 Desirable: <100 mg/dL Near Optimal: 100-129 mg/dL Borderline High: 130-159 mg/dL High: 160-189 mg/dL Very High: >189 mg/dL 23 Verbal to by [id number] at 1220 on 02/07/15. Results read back accurately. Platelets clumped. Unable to perform accurate count. Verbal to answering service at 1119 on 02/07/15 by [id number]. Doctor to return call. 24 Platelets clumped. Unable to perform accurate count. 25 Because ethnic data is not always readily available, this report includes an eGFR for both -Americans and non- Americans. The National Kidney Disease Education Program (NKDEP) does not endorse the use of the MDRD equation for patients that are not between the ages of 18 and 70, are , have extremes of body size, muscle mass, or nutritional status, or are non- or non-. According to the National Kidney Foundation, irrespective of diagnosis, the stage of the disease is based on the level of kidney function: Stage Description GFR(mL/min/1.73 m(2)) 1 Kidney damage with normal or decreased GFR 90 2 Kidney damage with mild decrease in GFR 60-89 3 Moderate decrease in GFR 30-59 4 Severe decrease in GFR 15-29 5 Kidney failure <15 (or dialysis) 26 RESULT: Polyclonal hypergammaglobulinemia Test Performed by: [address] [address] Admissions Dean: Vasquez Arango III, M.D. 27 Normal Range 180 to 914 Indeterminate Range 145 to 180 Deficient Range <145 28 Because ethnic data is not always readily available, this report includes an eGFR for both -Americans and non- Americans. The National Kidney Disease Education Program (NKDEP) does not endorse the use of the MDRD equation for patients that are not between the ages of 18 and 70, are , have extremes of body size, muscle mass, or nutritional status, or are non- or non-. According to the National Kidney Foundation, irrespective of diagnosis, the stage of the disease is based on the level of kidney function: Stage Description GFR(mL/min/1.73 m(2)) 1 Kidney damage with normal or decreased GFR 90 2 Kidney damage with mild decrease in GFR 60-89 3 Moderate decrease in GFR 30-59 4 Severe decrease in GFR 15-29 5 Kidney failure <15 (or dialysis) 29 HDL Interpretation: Undesirable: High Risk: Less than 40 mg/dL Desirable: Low Risk: Greater than 60 mg/dL 30 LDL Interpretation: Low Risk Optimal Level: LDL Less than 100 mg/dL Near or Above Optimal: LDL 100-129 mg/dL Borderline High Risk: LDL 130-159 mg/dL High Risk: LDL 160-189 mg/dL Very High Risk: LDL Greater than 189 mg/dL 31 Because ethnic data is not always readily available, this report includes an eGFR for both -Americans and non- Americans. The National Kidney Disease Education Program (NKDEP) does not endorse the use of the MDRD equation for patients that are not between the ages of 18 and 70, are , have extremes of body size, muscle mass, or nutritional status, or are non- or non-. According to the National Kidney Foundation, irrespective of diagnosis, the stage of the disease is based on the level of kidney function: Stage Description GFR(mL/min/1.73 m(2)) 1 Kidney damage with normal or decreased GFR 90 2 Kidney damage with mild decrease in GFR 60-89 3 Moderate decrease in GFR 30-59 4 Severe decrease in GFR 15-29 5 Kidney failure <15 (or dialysis) 32 Because ethnic data is not always readily available, this report includes an eGFR for both -Americans and non- Americans. The National Kidney Disease Education Program (NKDEP) does not endorse the use of the MDRD equation for patients that are not between the ages of 18 and 70, are , have extremes of body size, muscle mass, or nutritional status, or are non- or non-. According to the National Kidney Foundation, irrespective of diagnosis, the stage of the disease is based on the level of kidney function: Stage Description GFR(mL/min/1.73 m(2)) 1 Kidney damage with normal or decreased GFR 90 2 Kidney damage with mild decrease in GFR 60-89 3 Moderate decrease in GFR 30-59 4 Severe decrease in GFR 15-29 5 Kidney failure <15 (or dialysis) 33 Test Performed by: [address] [address] Admissions Dean: Vasquez Arango III, M.D. 34 -- REFERENCE VALUE -- <20.0 (Negative) Test Performed by: [address] [address] Admissions Dean: Vasquez Arango III, M.D. Procedures Date CPT Code Description Status 11/24/2016 81358 EKG Tracing & Interpretation Completed 05/14/2016 85859 Nerve Conduction 03-04 Studies Completed 05/14/2016 89370 Needle Electromyography Each Extremity W/Related Completed Paraspinal Areas 11/15/2015 Diabetic Retinal Eye Exam Completed 09/19/2015 Mammogram Completed 08/23/2014 Mammogram Completed 12/07/2013 91350 Needle Electromyography Each Extremity W/Related Completed Paraspinal Areas 12/07/2013 22620 Needle Electromyography Each Extremity W/Related Completed Paraspinal Areas 12/07/2013 67939 Nerve Conduction 03-04 Studies Completed 05/11/2013 89537 ECHO Transthoracic, Real-Time 2D With Doppler And Color Completed Flow 04/24/2013 09442 Stress Test Completed 04/24/2013 92232 Myocardial Perfusion Imaging Tomographic (Spect) Completed Multiple Studies 04/14/2013 31406 EKG Tracing & Interpretation Completed 03/23/2013 25807 Holter Monitor Review (24 hr)dr christian & malena Completed only 02/14/2013 Bone Mineral Density Test Completed 02/14/2013 Mammogram Completed 11/15/2006 Colonoscopy Completed Encounters Type Date Location Provider CPT E/M Dx Office Visit 07/02/2017 [facility] Layne Figueredo M.D. 41065 G60.9 10:00a [facility] Office Visit 02/23/2017 [facility] Bijan Mahmood, 58139 Z00.01 10:30a - Maral Porter,FACP I10 G60.9 E03.8 I78.1 Z23 Office Visit 11/24/2016 11:30a [facility] Internal Bijan Mahmood, 13031 Z01.810 Medicine - Maral Porter,FACP H40.2210 I10 Office Visit 04/20/2016 1:45p [facility] Layne Figueredo M.D. 68237 G60.9 [facility] M21.371 Office Visit 08/15/2015 10:40a [facility] Internal Medicine - Kayla Marinelli M.D. 24245 I10 [place] E03.8 G60.9 Z12.31 Z23 Office Visit 05/13/2015 11:30a [facility] Layne Figueredo M.D. 53838 356.9 [facility] Office Visit 02/14/2015 10:40a [facility] Kayla Marinelli M.D. 34323 401.9 - [place] 244.8 356.9 287.1 Office Visit 08/16/2014 11:00a [facility] Kayla Marinelli M.D. 67934 401.9 - [place] 276.1 356.9 V76.19 244.8 Office Visit 05/14/2014 11:30a [facility] Layne Figueredo M.D. 73705 356.9 [facility] 781.2 Office Visit 12/07/2013 1:00p [facility] Layne Figueredo M.D. 48836 356.9 [facility] 781.2 Office Visit 09/29/2013 11:00a [facility] Kayla Marinelli M.D. 20296 401.9 - [place] 276.1 781.2 Office Visit 09/25/2013 10:00a [facility] Layne Figueredo M.D. 39550 781.2 [facility] V15.88 Office Visit 06/02/2013 11:45a [facility] Tierney, 56362 781.2 Saige Porter, [facility] Office Visit 05/16/2013 11:00a [facility] Internal Medicine - Kayla Marinelli M.D. 75949 781.2 [place] 401.9 Office Visit 04/20/2013 3:40p [facility] Kayla Marinelli M.D. 77747 780.4 - [place] 427.0 401.1 244.8 300.09 Office Visit 04/14/2013 12:15p [facility], 44163 786.05 Saige Porter, [facility] 780.4 427.0 Office Visit 03/28/2013 11:00a [facility] Kayla Marinelli M.D. 66067 401.1 - [place] Office Visit 03/14/2013 11:20a [facility] Kayla Marinelli M.D. 19510 842.09 - [place] 401.1 Office Visit 02/23/2013 9:20a [facility] Kayla Marinelli M.D. 31747 401.1 - [place] 733.90 Office Visit 02/09/2013 1:40p [facility] Kayla Marinelli M.D. 82231 401.1 - [place] 627.9 244.8 386.11 842.09 Plan of Care Future Appointment(s):06/08/2018 4:20 pm - Bijan Mahmood M.D.,FACP at [facility] - [address]04/07/2018 - Bijan Mahmood M.D.,FACP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 and idiopathic neuropathy, [id number] Neoplasm of uncertain behavior of skinComments:After examination of the lesion on your nose, I advise you to follow up with an Ear, Nose and Throatphysician, Dr. Srivastava, to remove this lesion.Referral:Santiago Srivastava MD, [id number] Essential (primary) hypertensionComments:You are meeting target blood pressure. Continue low salt diet.Aerobic exercise 30 minutes 5 times per week should improve blood pressure. Continue medications as prescribed.Goals:Blood pressure goal <140/90 in general. Blood pressure goal <150/90 in people older than 75. Blood pressure goal <130/85 in diabetic patients. Goal BMI is less than 25.
[2018-03-14 00:45] LABS: Hematocrit 44 % (35-47); Mean Corpuscular HGB Conc 34 g/dl (31-36); Mean Corpuscular Hemoglobin 30 pg (27-31); Mean Corpuscular Volume 86 fL (80-97); Red Blood Count 5.07 10^6/ul (4.0-5.4); Red Cell Distribution Width 13 % (10.5-15); White Blood Count 12.4 10^3/ul (3.5-10.8)
[2018-03-14] MEDS ORDERED: Ondansetron INJ* 2 MG/ML VIAL IV ONE (01:03)
[2018-03-14] MEDS ORDERED: Iodixanol* (CONTRAST) 320 MG/ML 100 ML SDV IV ONE (01:42)
[2018-03-14 02:07] LABS: ABS Basophils 0 10^3/ul (0-0.2); ABS Eosinophils 0.1 10^3/ul (0-0.6); ABS Lymphocytes 0.4 10^3/ul (1.0-4.8); ABS Monocytes 0.5 10^3/ul (0-0.8); ABS Neutrophils 11.4 10^3/ul (1.5-7.7); ABS Nucleated RBC 0 10^3/ul; Eosinophil % 0.8 % (0-6); Lymphocyte % 3.5 % (25-47); Mean Platelet Volume 8.8 um3 (7.4-10.4); Nucleated Red Blood Cells % 0.1; Platelet Count 502 10^3/ul (150-450)
[2018-03-14] MEDS ORDERED: Morphine VIAL* 4 MG/ML VIAL (1 ml vial) IV PRN (03:09)
[2018-03-14] MEDS ORDERED: Ondansetron INJ* 2 MG/ML VIAL IV PRN (03:09)
[2018-03-14] MEDS ORDERED: HYDROmorphone INJ* 2 MG/ML CARPUJECT SYRINGE ONE (03:09)
[2018-03-14] MEDS ORDERED: PROCHLORPERAZINE INJ 5 MG/ML 2 ML VIAL IV PRN (03:09)
[2018-03-14] MEDS ORDERED: NS 0.9% 1000 ML* 1,000 ML IV SCH (03:15)
[2018-03-14] MEDS ORDERED: hydrALAZINE IV* 20 MG/ML VIAL IV SLOW PU PRN (03:41)
--- NOTE | 2018-03-14 04:43 | HP ---
CC: Dr. Mahmood * HISTORY AND PHYSICAL: DATE OF ADMISSION: 03/14/18 PRIMARY CARE PROVIDER: Dr. Mahmood. CHIEF COMPLAINT: Nausea and vomiting. HISTORY OF PRESENT ILLNESS: Ms. Sinclair is an 82-year-old female who has a history of hypertension, hypothyroidism, and peripheral neuropathy who presents to the emergency room with complaints of nausea and vomiting. The patient states that following lunch on 03/13/18 she developed an episode of vomiting. She states it was only once, however. She then tried to increase her water intake. She continued to have frequent vomiting. The patient continues to feel quite nauseous persistently. She does state these symptoms were similar to prior to having her gallbladder removed, but this is more severe. The patient denies any fevers or chills. She states that she last passed gas a while ago, but is unsure of when. Her last bowel movement was on the morning of 03/12/18. PAST MEDICAL HISTORY: 1. Peripheral neuropathy. 2. Hypertension. 3. Hypothyroidism. 4. BPPV. 5. Glaucoma. 6. Scoliosis. 7. History of diverticulitis. PAST SURGICAL HISTORY: 1. Right eye surgery. 2. Deviated septum repair. 3. Cataract extraction bilaterally. 4. Cholecystectomy. 5. Right carpal tunnel release. 6. Tonsillectomy. MEDICATIONS: 1. MiraLAX 17 g p.o. daily. 2. Enalapril 20 mg p.o. b.i.d. 3. Travoprost Z 1 drop to both eyes daily. 4. Vitamin B12 of 1000 mcg p.o. daily. 5. Calcium+D one tab p.o. daily. 6. Restasis 1 drop to both eyes daily. 7. Pyridoxine 100 mg p.o. daily. 8. Magnesium 84 mg p.o. daily. 9. Levothyroxine 50 mcg p.o. daily. 10. Aspirin 81 mg p.o. daily. 11. Amlodipine 5 mg p.o. daily. ALLERGIES: No known drug allergies. FAMILY HISTORY: Mom of complications following a stroke. Dad related to colon cancer and pancreatic cancer. SOCIAL HISTORY: The patient is a former, she quit in her early 90s. She drinks 2 alcoholic beverages per week. 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 She is . She has 2 children. She indicates that her , Nancy Sinclair, and her daughter, Cheryl Ramos, are her healthcare proxies. REVIEW OF SYSTEMS: A complete 11 system review of systems is obtained. Pertinent positive and negatives as per HPI and otherwise negative. PHYSICAL EXAMINATION GENERAL: The patient is a well-developed, elderly female sitting up in the stretcher in no acute distress. VITAL SIGNS: Blood pressure 173/85, pulse 80, respirations 16, temp 98.9, and O2 sat 96% on room air. HEENT: Pupils are equal and round. Extraocular movements intact. Oropharynx is clear. Oral mucosa is moist. NECK: There is no submandibular, cervical, or supraclavicular adenopathy. Thyroid is not enlarged. No thyroid nodules are noted. PULMONARY: Lungs are clear to auscultation bilaterally. CARDIAC: Normal S1 and S2. Regular, rate, and rhythm. There is a 2/6 systolic murmur heard best at the right upper sternal border. There is no lower extremity edema. ABDOMEN: Bowel sounds are present. Abdomen is soft, it is nondistended. She has a firm bulge in the left groin. MUSCULOSKELETAL: There is no cyanosis or clubbing of the digits. There is full active range of motion of all 4 extremities. SKIN: Warm and dry. There are no rashes. NEUROLOGIC: Cranial nerves II through XII are grossly intact. Sensation is intact to light touch throughout. Strength is 5/5 and symmetric in both upper and lower extremities bilaterally. PSYCH: The patient is alert. She is oriented x3. Affect appears appropriate. LABORATORY DATA: WBC 12.4, hemoglobin 15.0, hematocrit 44, platelets 502, INR 0.9. Sodium 130, potassium 3.7, chloride 93, CO2 of 26, BUN 15, creatinine 0.96 , glucose 161, lactic acid 1.3, calcium 10.8, bilirubin 1.1, AST 27, ALT 17, alk phos 52, troponin 0.03, albumin 4.7, and lipase 86. EKG reveals normal sinus rhythm. No acute ST T-wave abnormalities. CT abdomen and pelvis. There is small-bowel obstruction secondary to a left inguinal hernia without abscess or free air. Possible bilateral adrenal adenomas may be present. This can be confirmed with MRI if clinically warranted. ASSESSMENT AND PLAN: Ms. Sinclair is an 82-year-old female with a history of peripheral neuropathy, hypertension, hypothyroidism, and past history of diverticulitis, who presents to the emergency room with complaints of nausea and vomiting and is found to have a small-bowel obstruction secondary to left inguinal hernia. 1. Small-bowel obstruction secondary to left inguinal hernia. The patient is status post reduction of the hernia in the emergency room. I will contact general surgery for consultation later this morning. I will hold off on placing the NG tube at this time. I am hopeful that with just reducing the hernia the patient will feel dramatically better. She will likely need to have the hernia repaired surgically to prevent this from happening again. She will have Zofran and Compazine for nausea and she will be n.p.o. for now. 2. Hyponatremia. Mild creatinine elevation. This is likely secondary to volume depletion and vomiting. The patient will be resuming normal saline. Repeat labs will be obtained on 03/15/18. 3. Leukocytosis and thrombocytosis. I suspect these are elevated secondary to stress reactions from the bowel obstruction. These will be followed up tomorrow. I will not start antibiotic therapy at this point. 4. Peripheral neuropathy. I am going to hold her vitamin B supplementation. 5. Hypertension. Oral antihypertensives are going to be held. She will have p.r.n. hydralazine available. 6. Hypothyroidism. We will continue Synthroid by an IV formulation. 7. DVT prophylaxis. According to the Adult Thrombosis Prophylaxis Risk Factor Assessment Guide the patient has a total risk factor score of 3 making her high risk. Heparin 5000 units subcutaneous q. 8 hours will be utilized as DVT prophylaxis. 8. Code status is full. TIME SPENT: 65 minutes was spent admitting this patient. [id number]/[facility] #: [id number] THAI
[2018-03-14] MEDS ORDERED: Ondansetron ODT TAB* 4 MG PO PRN (04:52)
--- NOTE | 2018-03-14 05:36 | ED ---
Kirti Sarabia Gabriel, scribed for David Keenan on 03/13/18 at 2342 . Abdominal Pain/Female - HPI Summary HPI Summary: This patient is a 82 year old F BIBA to [facility] with a chief complaint of ABD pain that began tonight. The patient rates the pain 4/10 in severity. Patient reports vomiting, ABD cramping, constipation, and bloated ABD. Patient denies CP , SOB, and fever. Pt had an episode of vomiting in the emergency room - History of Current Complaint Chief Complaint: EDAbdPain Stated Complaint: ABD PAIN Time Seen by Provider: 03/13/18 23:27 Hx Obtained From: Patient Hx Last Menstrual Period: post menopausal Onset/Duration: Lasting Hours, Still Present Timing: Constant Severity Initially: Moderate Severity Currently: Moderate Pain Intensity: 4 Pain Scale Used: 0-10 Numeric Location: Diffuse Radiates: No Associated Signs and Symptoms: Positive: Constipation, Nausea, Vomiting, Other: - ABD bloating and cramping. Negative: Diarrhea Allergies/Adverse Reactions: Allergies Allergy/AdvReac Type Severity Reaction Status Date / Time NSAIDS (Non-Steroidal Allergy See Comment Verified 03/13/18 23:29 Anti-Inflamma Home Medications: Home Medications Cyclosporine 0.05% OPHTH (NF) [Restasis 0.05% OPHTH] 1 drop BOTH EYES DAILY [History Confirmed 03/13/18] PMH/Surg Hx/FS Hx/Imm Hx Endocrine/Hematology History: Reports: Hx Thyroid Disease Denies: Hx Diabetes Cardiovascular History: Reports: Hx Hypertension Respiratory History: Denies: Hx Asthma, Hx Chronic Obstructive Pulmonary Disease (COPD) GI History: Denies: Hx Ulcer Musculoskeletal History: Reports: Hx Rheumatoid Arthritis Denies: Hx Osteoporosis - Surgical History Surgery Procedure, Year, and Place: SCOLIOSIS. tonsils, deviated septum, carpal tunnel, rashard, cataracts Infectious Disease History: No Infectious Disease History: Denies: Hx Hepatitis, Hx Human Immunodeficiency Virus (HIV), History Other Infectious Disease, Traveled Outside the [place] in Last 30 Days - Family History Known Family History: Positive: Hypertension Negative: Cardiac Disease, Diabetes, Renal Disease, Respiratory Disease, Blood Disorder - Social History Alcohol Use: Weekly Alcohol Amount: 2/week Hx Substance Use: No Substance Use Type: Reports: None Hx Tobacco Use: Yes Smoking Status (MU): Former Smoker Review of Systems Negative: Fever Negative: Chest Pain Negative: Shortness Of Breath Positive: Abdominal Pain, Vomiting, Nausea, Other - ABD cramping and bloating . Negative: Diarrhea All Other Systems Reviewed And Are Negative: Yes Physical Exam - Summary Physical Exam Summary: Appearance: Well appearing, no pain distress Skin: warm, dry, reflects adequate perfusion Head/face: normal Eyes: EOMI, HEDY ENT: normal Neck: supple, non-tender Respiratory: CTA, breath sounds present Cardiovascular: RRR, pulses symmetrical Abdomen: LLQ is TTP, there is a lump in the left inguinal area Bowel: present Musculoskeletal: normal, strength/ROM intact Neuro: normal, sensory motor intact, A&Ox3 Triage Information Reviewed: Yes Vital Signs On Initial Exam: Initial Vitals Pulse BP Pulse Ox 79 119/88 95 03/13/18 23:25 03/13/18 23:25 03/13/18 23:25 Vital Signs Reviewed: Yes Procedures - Procedure Summary Procedure Summary: The left inguinal hernia was reduced using dilaudid. Diagnostics - Vital Signs Vital Signs Temp Pulse Resp BP Pulse Ox 03/13/18 23:33 83 95 03/13/18 23:27 98.9 F 84 16 119/88 97 03/13/18 23:25 79 119/88 95 - Laboratory Lab Results: Lab Results 03/14/18 03/14/18 03/14/18 Range/Units 00:00 00:00 00:00 WBC 12.4 H (3.5-10.8) 10^3/ul RBC 5.07 (4.0-5.4) 10^6/ul Hgb 15.0 (12.0-16.0) g/dl Hct 44 (35-47) % MCV 86 (80-97) fL MCH 30 (27-31) pg MCHC 34 (31-36) g/dl RDW 13 (10.5-15) % Plt Count 502 H (150-450) 10^3/ul MPV 8.8 (7.4-10.4) um3 Neut % (Auto) 91.9 H (38-83) % Lymph % (Auto) 3.5 L (25-47) % [place] % (Auto) 3.7 (0-7) % Eos % (Auto) 0.8 (0-6) % Baso % (Auto) 0.1 (0-2) % Absolute Neuts (auto) 11.4 H (1.5-7.7) 10^3/ul Absolute Lymphs (auto) 0.4 L (1.0-4.8) 10^3/ul Absolute Monos (auto) 0.5 (0-0.8) 10^3/ul Absolute Eos (auto) 0.1 (0-0.6) 10^3/ul Absolute Basos (auto) 0 (0-0.2) 10^3/ul Absolute Nucleated RBC 0 10^3/ul Nucleated RBC % 0.1 Large Platelets Present INR (Anticoag Therapy) 0.90 (0.77-1.02) APTT 34.5 (26.0-36.3) seconds Sodium 130 L (139-145) mmol/L Potassium 3.7 (3.5-5.0) mmol/L Chloride 93 L (101-111) mmol/L Carbon Dioxide 26 (22-32) mmol/L Anion Gap 11 (2-11) mmol/L BUN 15 (6-24) mg/dL Creatinine 0.96 H (0.51-0.95) mg/dL Est GFR ( Amer) 71.2 (>60) Est GFR (Non-Af Amer) 55.4 (>60) BUN/Creatinine Ratio 15.6 (8-20) Glucose 161 H (70-100) mg/dL Lactic Acid (0.5-2.0) mmol/L Calcium 10.8 H (8.6-10.3) mg/dL Total Bilirubin 1.10 H (0.2-1.0) mg/dL AST 27 (13-39) U/L ALT 17 (7-52) U/L Alkaline Phosphatase 52 (34-104) U/L Troponin I 0.03 (<0.04) ng/mL Total Protein 8.9 (6.4-8.9) g/dL Albumin 4.7 (3.2-5.2) g/dL Globulin 4.2 H (2-4) g/dL Albumin/Globulin Ratio 1.1 (1-3) Lipase 86 H (11.0-82.0) U/L 03/14/18 Range/Units 00:00 WBC (3.5-10.8) 10^3/ul RBC (4.0-5.4) 10^6/ul Hgb (12.0-16.0) g/dl Hct (35-47) % MCV (80-97) fL MCH (27-31) pg MCHC (31-36) g/dl RDW (10.5-15) % Plt Count (150-450) 10^3/ul MPV (7.4-10.4) um3 Neut % (Auto) (38-83) % Lymph % (Auto) (25-47) % [place] % (Auto) (0-7) % Eos % (Auto) (0-6) % Baso % (Auto) (0-2) % Absolute Neuts (auto) (1.5-7.7) 10^3/ul Absolute Lymphs (auto) (1.0-4.8) 10^3/ul Absolute Monos (auto) (0-0.8) 10^3/ul Absolute Eos (auto) (0-0.6) 10^3/ul Absolute Basos (auto) (0-0.2) 10^3/ul Absolute Nucleated RBC 10^3/ul Nucleated RBC % Large Platelets INR (Anticoag Therapy) (0.77-1.02) APTT (26.0-36.3) seconds Sodium (139-145) mmol/L Potassium (3.5-5.0) mmol/L Chloride (101-111) mmol/L Carbon Dioxide (22-32) mmol/L Anion Gap (2-11) mmol/L BUN (6-24) mg/dL Creatinine (0.51-0.95) mg/dL Est GFR ( Amer) (>60) Est GFR (Non-Af Amer) (>60) BUN/Creatinine Ratio (8-20) Glucose (70-100) mg/dL Lactic Acid 1.3 (0.5-2.0) mmol/L Calcium (8.6-10.3) mg/dL Total Bilirubin (0.2-1.0) mg/dL AST (13-39) U/L ALT (7-52) U/L Alkaline Phosphatase (34-104) U/L Troponin I (<0.04) ng/mL Total Protein (6.4-8.9) g/dL Albumin (3.2-5.2) g/dL Globulin (2-4) g/dL Albumin/Globulin Ratio (1-3) Lipase (11.0-82.0) U/L Result Diagrams: 03/14/18 00:00 03/14/18 00:00 Lab Statement: Any lab studies that have been ordered have been reviewed, and results considered in the medical decision making process. - CT CT ABD/Pelvis CT Interpretation Completed By: Radiologist - small bowel obstruction secondary to a left inguinal hernia, without abscess or free. Possible adrenal adenomas may be confirmed with MRI as clinically warranted ED physician has reviewed this radiology report. - EKG 0029 Cardiac Rate: NL EKG Rhythm: Sinus Rhythm - at 76 BPM EKG Interpretation: no acute changes Abdominal Pain Fem Course/Dx - Course Course Of Treatment: This patient is a 82 year old F BIBA to [facility] with a chief complaint of ABD pain that began tonight. The patient rates the pain 4/10 in severity. Patient reports vomiting, ABD cramping, constipation, and bloated ABD. Patient denies CP, SOB, and fever. Pt had an episode of vomiting in the emergency room. An EKG reveals NSR,. CT ABD/Pelvis reveals, per radiologist, small bowel obstruction secondary to a left inguinal hernia, without abscess or free. Possible adrenal adenomas may be confirmed with MRI as clinically warranted. Blood work obtained. Dx incarcerated left inguinal, SBO. Patient will be admitted. The patient is agreeable with this plan. - Diagnoses Differential Diagnosis: Positive: Appendicitis, Bowel Obstruction, Diverticulitis, Urinary Tract Infection, Other - incarcirated lf inguinal hernia Provider Diagnoses: SBO (small bowel obstruction), Incarcerated left inguinal hernia - Provider Notifications Discussed Care Of Patient With: Rhea Frederick Time Discussed With Above Provider: 03:30 Instructed by Provider To: Admit As Inpatient - Critical Care Time Critical Care Time: 30-74 min Discharge - Sign-Out/Discharge Documenting (check all that apply): Discharge/Admit/Transfer - admitted to Dr. Frederick - Discharge Plan Condition: Fair Disposition: ADMITTED TO [facility] - Billing Disposition and Condition Condition: FAIR [place] [place] The documentation as recorded by the Kirti levy Gabriel accurately reflects the service I personally performed and the decisions made by Shlomo corey Emmanuel.
[2018-03-14] MEDS ORDERED: Levothyroxine INJ* 100 MCG/5 ML VIAL IV SCH (06:00)
[2018-03-14] MEDS: Heparin VIAL(*) 5000 UNITS/ML VIAL (FIVE THOUSAND) SUBCUT SCH ×2 (06:26→13:31)
[2018-03-14 07:08] LABS: ABS Basophils 0 10^3/ul (0-0.2); ABS Eosinophils 0 10^3/ul (0-0.6); ABS Lymphocytes 0.3 10^3/ul (1.0-4.8); ABS Monocytes 0.7 10^3/ul (0-0.8); ABS Neutrophils 15.2 10^3/ul (1.5-7.7); ABS Nucleated RBC 0 10^3/ul; Eosinophil % 0.2 % (0-6); Hematocrit 37 % (35-47); Hemoglobin 12.9 g/dl (12.0-16.0); Lymphocyte % 1.9 % (25-47); Mean Corpuscular HGB Conc 35 g/dl (31-36); Mean Corpuscular Hemoglobin 29 pg (27-31); Mean Corpuscular Volume 85 fL (80-97); Mean Platelet Volume 8.1 um3 (7.4-10.4); Nucleated Red Blood Cells % 0; Platelet Count 476 10^3/ul (150-450); Red Blood Count 4.43 10^6/ul (4.0-5.4); Red Cell Distribution Width 14 % (10.5-15); White Blood Count 16.3 10^3/ul (3.5-10.8)
--- NOTE | 2018-03-14 07:52 | PN ---
Subjective Date of Service: 03/14/18 Interval History: Ms. Sinclair reports that her nausea and abdominal pain have resolved. She denies chest pain or SOB. She denies ever having an inguinal hernia before but reports that she has been lifting heavy boxes at home due to recently moving to [place]. Her only previous abdominal surgery was a cholecystectomy in 2000. Objective Active Medications: Heparin Sodium (Porcine) (Heparin Vial(*)) 5,000 units SUBCUT Q8HR MAX Hydralazine HCl (Apresoline Iv*) 5 mg IV SLOW PU Q6H PRN Sodium Chloride (Ns 0.9% 1000 Ml*) 1,000 mls @ 100 mls/hr IV ED ONCE ONE Sodium Chloride (Ns 0.9% 1000 Ml*) 1,000 mls @ 75 mls/hr IV PER RATE MAX Latanoprost (Xalatan 0.005%*) 1 drop BOTH EYES DAILY MAX Levothyroxine Sodium (Synthroid Inj*) 25 mcg IV 0600 MAX Morphine Sulfate (Morphine Vial*) 2 mg IV Q4H PRN Ondansetron HCl (Zofran Odt Tab*) 4 mg PO Q6H PRN Prochlorperazine Edisylate (Compazine Inj*) 5 mg IV Q6H PRN Vital Signs: Temp Pulse Resp BP Pulse Ox 99.3 F 85 16 110/59 94 03/14/18 04:14 03/14/18 04:14 03/14/18 04:14 03/14/18 04:14 03/14/18 04:14 Oxygen Devices in Use Now: None Appearance: Female lying in bed in NAD Eyes: No Scleral Icterus Neck: NL Appearance and Movements; NL JVP, Trachea Midline Respiratory: Symmetrical Chest Expansion and Respiratory Effort, Clear to Auscultation Cardiovascular: NL Sounds; No Murmurs; No JVD, No Edema Abdominal: NL Sounds; No Tenderness; No Distention Lymphatic: No Cervical Adenopathy Extremities: No Edema Skin: No Rash or Ulcers Neurological: Alert and Oriented x 3, NL Muscle Strength and Tone Nutrition: Taking PO's Result Diagrams: 03/14/18 06:56 03/14/18 00:00 Additional Lab and Data: . Microbiology and Other Data: . Assess/Plan/Problems-Billing Assessment: Ms. Sinclair is an 82 yo F with a PMH of hypertension who was admitted on 03/14/18 with small bowel obstruction secondary to inguinal hernia, s/p reduction in ED. - Patient Problems (1) SBO (small bowel obstruction) Comment: - Appreciate surgery consult. Hernia reduced in ED. - Plan to advance diet. - Patient will need close follow up outpatient with [facility] for outpatient hernia repair. (2) Hypertension Comment: - SBP 110-140. - Hold amlodipine and enalapril while NPO. (3) Hypothyroidism Comment: - Continue levothyroxine. (4) DVT prophylaxis Comment: - Heparin SQ. (5) Full code status Comment: Status and Disposition: Likely switch to OBV with anticipated discharge if patient tolerates oral intake.
--- NOTE | 2018-03-14 08:08 | RAD ---
CLINICAL HISTORY: Abdominal pain and emesis. Relevant surgical history includes a cholecystectomy. COMPARISON: None TECHNIQUE: Contrast enhanced CT examination of the abdomen and pelvis from the lung bases through the initial tuberosities. The patient received 76 mL Visipaque 320 intravenously prior to imaging. FINDINGS: VISUALIZED LUNG BASES: The visualized lung bases are grossly clear. There is no pleural effusion. There is coarse calcification at the mitral valve. ABDOMEN AND PELVIS: The liver, spleen and pancreas are grossly normal in appearance. The gallbladder is surgically absent with surgical clips in the gallbladder fossa.. There are soft tissue nodules the bilateral adrenal glands measuring 1.1 x 1.5 cm on the right and 1.0 x 1.5 cm and the left. Bilaterally there are low-attenuation structures in the kidneys that would be most consistent with benign cysts except the Hounsfield units measure greater than simple fluid. The kidneys are otherwise grossly normal in appearance. Evaluation of the gastrointestinal tract is limited in the absence of oral contrast. There is dilatation of the proximal small bowel with air-fluid levels measuring up to 3.2 cm in diameter. These dilated loops of small bowel leading into the patient's left inguinal hernia which contains a loop of small bowel. Distal to this the small bowel is decompressed. Gas and stool seen throughout the length of the colon. There are scattered rectosigmoid diverticula. There is no gross retroperitoneal or mesenteric lymphadenopathy. The pelvic viscera is normal in appearance. The moderately calcified abdominal aorta and iliac arteries are normal in course and diameter. Degenerative changes of the lower thoracic and lumbar spine includes loss of intervertebral disc height, sclerotic change of the articulating endplates and vacuum disc phenomenon. There is S shaped curvature of the lower thoracic and lumbar spine dextroconvex at the L1 level and levoconvex at the L4 level. IMPRESSION: 1. There is a loop of small bowel herniating into a left inguinal hernia causing small bowel obstruction. 2. Soft tissue nodules at the bilateral adrenal glands are incompletely characterized on this type a CT examination. There are no prior CTs of the abdomen and pelvis to comment on chronicity. Superior characterization can be made with contrast-enhanced MRI of the abdomen if clinically warranted. 3. Low-attenuation structures in the bilateral kidneys are most likely benign renal cysts though the Hounsfield unit is slightly greater than that of definite benign cyst. Further characterization can be made with ultrasound of the kidneys and/or the kidneys can also be imaged if the patient undergoes MR imaging of the adrenal glands. 4. Additional chronic, degenerative and iatrogenic findings described in the body the report
[2018-03-14] MEDS ORDERED: Latanoprost 0.005%* 2.5 ml BTL BOTH EYES SCH (09:00)
--- NOTE | 2018-03-14 10:59 | CONS ---
Cc: Bijan Mahmood MD; [facility] * SURGICAL CONSULTATION REPORT: DATE OF CONSULT: 03/14/18 LOCATION: Room 352 HISTORY OF PRESENT ILLNESS: Surgery Department was contacted by the hospitalist service to evaluate Ms. Sinlcair, an 82-year-old female who presented to the emergency room yesterday with complaints of left groin pain, abdominal pain, nausea, and vomiting. Symptoms started approximately 2 p.m. yesterday, it worsened, then patient presented with what seemed to be a left inguinal hernia. Apparently, this was reduced after CT imaging in the emergency room. The patient denied any similar symptoms in the past. She states that she is feeling much better. Her appetite has not quite returned, but she is [age]. She is passing flatus, denies any nausea or vomiting. She has not had a bowel movement. According to the report in the emergency room after the CT scan, which showed small bowel obstruction secondary to a left inguinal hernia, the hernia was reduced with traction by emergency room physician. The patient stated that she had some discomfort during the Taxis, but seemed to help much better. She was admitted for observation by the hospitalist service and has been maintained on IV fluids. The patient states that just 2 weeks ago, she moved to a new residence for an assisted living since her is 89 and this has been necessary. They had been unpacking many boxes lately and she has been doing a lot of lifting. She denies anytime where she felt a "pop". PAST MEDICAL HISTORY: Includes, 1. Neuropathy. 2. Hypertension. 3. Hypothyroidism. 4. Glaucoma. 5. History of diverticulitis. PAST SURGICAL HISTORY: Reviewed and does include an open cholecystectomy and what sounds to be a common bile duct exploration 12 years ago in [place]. MEDICATIONS: Reviewed. SOCIAL HISTORY: She is a former smoker. She drinks occasionally. 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 REVIEW OF SYSTEMS: The patient describes her walking with a rolling walker, intermittent constipation. She takes MiraLax every other day to help with her bowel movement. She does note that her diet has changed since moving. She denies any dysuria. No recent hospitalizations. No bleeding or clotting disorders. PHYSICAL EXAM: Temperature is 99.3, vital signs are stable. She is alert and oriented x3. She is in no apparent distress. Head, ears, eyes, nose and throat : Normocephalic, atraumatic. Sclerae are anicteric. Mucous membranes are moist. Neck: No lymphadenopathy. Lungs: Clear. Abdomen: Soft, nondistended , nontender, well-healed right subcostal incision, relatively hypoactive bowel sounds. No evidence of hernia. Mild skin changes at the left groin, likely consistent with where patient underwent reduction. Rectal exam is not performed. Extremities: Within normal limits. DIAGNOSTIC STUDIES/LAB DATA: The patient's labs show white count that went from 12,000 to 16,000 with left shift. Chemistry panel shows mild abnormalities with lactic acid of 1.3. CT scan: Reviewed the images as well as the overnight report, which is consistent with small bowel obstruction secondary to left inguinal hernia without free air or abscess. 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 Official report is pending. IMPRESSION: Ms. Sinclair is an 82-year-old female who recently moved and has required a lot of lifting of boxes who presented with what seems to be a small bowel obstruction secondary to a left inguinal hernia that was reduced appropriately in the emergency room and is now doing well. PLAN/RECOMMENDATIONS: My recommendation will be advance diet and look towards discharge. Followup in our office for hernia repair, wait for the swelling to go down. I have asked her to not lift anything between now and surgery stating that we would like to do within the next week. The patient states that she wants to take care of a skin cancer lesion that she has on her nose, and she is going for procedure with ENT on Wednesday. I have asked her to get to our office soon after that. I described in detail the procedure of an open left inguinal hernia repair with mesh. The patient wished to proceed in that fashion, we will look towards getting her on the schedule. [id number]/[facility] [place] #: [id number] [facility]
[2018-03-14 12:13] VITALS: BP 105/47
[2018-03-14 15:38] LABS: Urine Appearance Clear; Urine Blood Negative (Negative); Urine Color Yellow; Urine Ketones Trace (Negative); Urine Protein Negative (Negative); Urine Specific Gravity > 1.060 (1.010-1.030); Urine Urobilinogen Negative (Negative)
--- NOTE | 2018-03-14 17:23 | DS ---
CC: Dr. Mahmood; Dr. Alfredo * [facility] MEDICINE DISCHARGE SUMMARY: DATE OF ADMISSION: 03/14/18 DATE OF DISCHARGE: 03/14/18 ATTENDING PHYSICIAN: Dr. Varner * (dictation provided by Gretel Iqbal NP). PRIMARY DIAGNOSES: 1. Small bowel obstruction. 2. Inguinal hernia. SECONDARY DIAGNOSES: 1. Peripheral neuropathy. 2. Hypertension. 3. Hypothyroidism. 4. History of benign paroxysmal positional vertigo. 5. Glaucoma. 6. Scoliosis. 7. History of diverticulitis. PAST SURGICAL HISTORY: 1. Right eye surgery. 2. Deviated septum repair. 3. Cataract extraction bilaterally. 4. Cholecystectomy. 5. Right carpal tunnel release. 6. Tonsillectomy. MEDICATIONS AT THE TIME OF DISCHARGE: (No medication changes). 1. MiraLAX 17 g p.o. daily. 2. Enalapril 20 mg p.o. b.i.d. 3. Travoprost Z 1 drop to both eyes daily. 4. Vitamin B12 1000 mcg p.o. daily. 5. Calcium with D 1 tab p.o. daily. 6. Restasis 1 drop to both eyes daily. 7. Pyridoxine 100 mg p.o. daily. 8. Magnesium 84 mg p.o. daily. 9. Levothyroxine 50 mcg p.o. daily. 10. Aspirin 81 mg p.o. daily. 11. Amlodipine 5 mg p.o. daily. HOSPITAL COURSE: Ms. Sinclair is an 82-year-old female with past medical history as mentioned above who presented to the hospital on gifts officer hours of 03/14 with complaint of nausea, vomiting and abdominal pain. Please see dictated H and P from Dr. Rhea Frederick for complete details. In brief, the patient reported that she had developed vomiting after lunch on 03/13/18 that persisted through the evening. She also reported some lower abdominal pain on the left. In the emergency room, she had labs, which showed a mildly elevated white blood cell count to 12.4. She was afebrile. The remainder of her laboratory workup was unremarkable. She did go on for an abdomen and pelvis CT, which was read as as follows: "There was a loop of small bowel herniating into the left inguinal hernia and causing small bowel obstruction. Soft tissue nodules of the bilateral adrenal glands are incompletely characterized on this type of CT examination. Low attenuation structures in the bilateral kidneys are most likely benign renal cysts, though the Hounsfield unit is slightly greater than that of a definite benign cyst. Further characterization can be made with ultrasound of the kidneys and/or kidneys can also be imaged if the patient undergoes MR imaging of the adrenal glands. Additional chronic degenerative and iatrogenic findings described in the body of the report." Ms. Sinclair was admitted to the hospital after having her inguinal hernia reduced by the emergency room provider. She was then seen in consultation by Dr. Alfredo from Surgery, who examined her and found her abdomen soft, nontender with no evidence of hernia. She was recommended to follow up with him in the outpatient setting for repair of the inguinal hernia and until that time to not lift anything over 5 pounds. Ms. Sinclair has done well today. She has been ambulating in her room without difficulty. She has had bowel movements and urinated without difficulty. She has been tolerating oral intake. Ms. Sinclair is medically stable for discharge to home to follow up with Dr. Mahmood for preoperative clearance and then Dr. Alfredo for a planned inguinal hernia repair. DISPOSITION: Home. DIET: Regular. ACTIVITY: As tolerated with 5-pound weight restriction. FOLLOWUP PLANS: 1. Please follow up with Dr. Mahmood for preoperative clearance. 2. Please follow up with Dr. Alfredo regarding inguinal hernia repair. TIME SPENT: Approximately 60 minutes were spent on the discharge of this patient, more than half the time spent with the patient at the bedside reviewing the events leading up to this hospitalization, performing the physical examination, and reviewing the plan of care. GRETEL IQBAL NP [id number]/[facility] #: [id number] THAI
[2018-03-14] MEDS ORDERED: HYDROmorphone INJ* 2 MG/ML CARPUJECT SYRINGE IV SLOW PU ONE (19:34)
== END 2018-03-14 16:05 | disposition home or self-care (01) ==
LOC: ED 23:23 → INTOOBSV 03-14 03:09 → SSU 03-14 03:09
PROVIDERS: ADMIT Hospitalist; ATTEND Student in an Organized Health Care Education/Training Program
DX: K56.609 Unspecified intestinal obstruction, unspecified as to partial versus complete obstruction (principal); K40.90 Unilateral inguinal hernia, without obstruction or gangrene, not specified as recurrent; G62.9 Polyneuropathy, unspecified; I10 Essential (primary) hypertension; E03.9 Hypothyroidism, unspecified; Z87.891 Personal history of nicotine dependence; H40.9 Unspecified glaucoma; M41.9 Scoliosis, unspecified; K57.32 Diverticulitis of large intestine without perforation or abscess without bleeding
CPT/HCPCS: 36415; 74177; 80053; 81003; 83605; 83690; 84484; 85025; 85610; 85730; 87641; 93005; 99284; G0378; J1170; J1644; J2405; Q9967

== ENCOUNTER 2018-05-25 11:40 | Day surgery (SDC) | payer MEDICARE, OTHER ==
[~2018-05-25 11:40] MED LIST: Buffered Lidocaine 0.9% SYRIN* 5 ML/SYR SYRINGE INTRADERM ONE; Famotidine IV* 10 MG/ML 2 ML (20 mg) IV ONE
[2018-05-25] MEDS ORDERED: Famotidine IV* 10 MG/ML 2 ML (20 mg) ONE (12:55)
[2018-05-25] MEDS ORDERED: ceFAZolin 2 GM PREMIX (*) 2 GM/50 ML BAG IVPB ONE (12:56)
[2018-05-25] MEDS ORDERED: Midazolam* 1 MG/ML 2 ML VIAL (2 MG) ONE (13:23)
[2018-05-25] MEDS ORDERED: fentaNYL* 50 MCG/ML 2 ML VIAL (100 MCG VIAL) ONE (13:23)
[2018-05-25] MEDS ORDERED: Propofol* 10 MG/ML 20 ML BTL IV PUSH ONE (13:27)
[2018-05-25] MEDS ORDERED: Ketorolac INJ* 30 MG/ML 1 ML VIAL ONE (13:27)
[2018-05-25] MEDS ORDERED: Dexamethasone IV* 4 MG/ML 1 ML (4 MG) ONE (13:27)
[2018-05-25] MEDS ORDERED: Ondansetron INJ* 2 MG/ML VIAL ONE (13:27)
[2018-05-25] MEDS ORDERED: Bupivacaine 0.5% W/EPI SDV* 10 ML VIAL INJ ONE (14:02)
[2018-05-25] MEDS ORDERED: Lidocaine 1% INJ* 10 MG/ML 30 ML SDV ONE (14:03)
[2018-05-25] MEDS ORDERED: oxyCODONE TAB* 5 MG TAB PO PRN (14:53)
[2018-05-25] MEDS ORDERED: Naloxone* 0.4 MG/ML 1 ML VIAL IV PRN (14:53)
[2018-05-25] MEDS ORDERED: Acetaminophen TAB* 325 MG PO PRN (14:53)
[2018-05-25] MEDS ORDERED: HYDROmorphone INJ* 0.5 MG/0.5 ML SYRINGE IV PRN (14:53)
[2018-05-25] MEDS ORDERED: DiMENhydriNATE IV* 50 MG/ML VIAL IV PUSH PRN (14:53)
--- NOTE | 2018-05-25 15:22 | BRIEFOPN ---
Brief Operative Note - Surgery Procedures: Pre-OP Diagnoses: Left inguinal hernia Post-op Diagnosis: same Procedure: open Left inguinal hernia repair with mesh Surgeon: Sayda Asst: Lavonne Anethesia: Local MAXIMINO Mejias EBL: minimal IVF: crystalloid Specimen: none Drains: none
[2018-05-25 16:23] VITALS: BP 163/80
--- NOTE | 2018-05-26 08:58 | OP ---
CC: Dr. Bijan Mahmood; [facility] OPERATIVE REPORT: DATE OF OPERATION: 05/25/18 DATE OF : 31 SURGEON: Baron Alfredo MD [facility]ACLE APPLICATIONS ANALYST: TED Meek ANESTHESIOLOGIST: Dr. Hyde ANESTHESIA: Local MAC. PRE-OP DIAGNOSIS: Left inguinal hernia. POST-OP DIAGNOSIS: Left inguinal hernia. OPERATIVE PROCEDURE: Open left inguinal hernia repair with mesh. ESTIMATED BLOOD LOSS: Minimal. FLUIDS: Minimal crystalloid fluid given. SPECIMEN: None. DRAINS: None. DESCRIPTION OF PROCEDURE: The patient was identified in the preoperative area. Case was discussed wi th her again and I went over the risks, benefits, and alternatives. The patient agreed to proceed. She was marked and consent signed. She was taken to the operating room, placed on the operating table in supine position. Preoperative antibiotics were given. Sequential devices were placed on bilater al lower extremities. Gentle sedation was given and the patient's left groin was clipped of hair and prepped and draped in a standard surgical fashion. A time-out was performed. The skin was anesthetized at the area of the proposed incision in the left groin. Thus, incision was made, this was deepened down to Camper's and Erlin's fascia right down to the external oblique apone urosis. This was incised along the direction of the fibers and flaps were made both cephalad and cau dad. The round ligament with attached structures were then isolated. Cremasteric fibers were taken down with electrocautery. What appeared to be a small nerve was also ligated after injection of lido nalini at the site. There was no evidence of an indirect hernia; however, there was, looking at the f fiordaliza, approximately 1-1/2 cm direct hernia without contents. We cleared off the shelving edge of the inguinal ligament. There appeared to be no femoral hernia. The vessels were all identified along w ith the epigastrics. Decision was made to place a ProGrip style mesh into the floor of the inguinal canal. This was cut t o size and placed in the appropriate fashion and it was sutured both at the marked area overlying the pubic tubercle and then we did apply another stitch at what was dissected out of Sean's ligament. The mesh unfurled and was seated in the appropriate position. A round ligament came out through the predefined opening. The wound was then irrigated and the aponeurosis external oblique was reapproxim ated with a running 2-0 Polysorb suture. Wound was closed in a standard fashion with 3-0 Polysorb sut ures at the Erlin's fascia and again at the subcutaneous layer followed by 4-0 Monocryl suture. Jean Marie ri- Strip and sterile dressing were applied. The patient was woken up and transferred to the PACU in stable condition. [id number]/[facility] #: [id number]
== END 2018-05-25 16:27 | disposition home or self-care (01) ==
LOC: OR 11:40
PROVIDERS: ATTEND Surgery
DX: K40.90 Unilateral inguinal hernia, without obstruction or gangrene, not specified as recurrent (principal); I10 Essential (primary) hypertension; Z87.891 Personal history of nicotine dependence; E03.9 Hypothyroidism, unspecified; M19.90 Unspecified osteoarthritis, unspecified site; G62.9 Polyneuropathy, unspecified; H81.10 Benign paroxysmal vertigo, unspecified ear
CPT/HCPCS: J0690; J1100; J1885; J2250; J2405; J2704; J3010

== ENCOUNTER 2018-10-08 03:14 | Inpatient (IN) | payer MEDICARE, OTHER ==
[2018-10-08] MEDS ORDERED: NS 0.9% 1000 ML* 1,000 ML IV ONE ×2 (03:21→10:19)
[2018-10-08] MEDS ORDERED: Ondansetron INJ* 2 MG/ML VIAL IV ONE (03:22)
[2018-10-08] MEDS ORDERED: Morphine VIAL* 4 MG/ML VIAL (1 ml vial) IV ONE (03:22)
--- NOTE | 2018-10-08 03:45 | ED ---
Abdominal Pain/Female - HPI Summary HPI Summary: Pt is an 82 y/o female brought in by EMS who presents to the ED c/o abdominal pain since 19:00 last night. She also c/o N/V and a cough. Pt notes she felt similar symptoms when she had an inguinal hernia. She denies any diarrhea, CP, or SOB. PMHx cholecystectomy. - History of Current Complaint Stated Complaint: NAUSEA/VOMITING Time Seen by Provider: 10/08/18 03:15 Hx Obtained From: Patient Hx Last Menstrual Period: post menopausal Onset/Duration: Gradual Onset, Lasting Hours - 19:00 last night, Still Present Timing: Constant Location: Diffuse Radiates: No Associated Signs and Symptoms: Positive: Nausea, Vomiting. Negative: Chest Pain , Diarrhea Allergies/Adverse Reactions: Allergies Allergy/AdvReac Type Severity Reaction Status Date / Time NSAIDS (Non-Steroidal Allergy See Comment Verified 05/25/18 13:00 Anti-Inflamma PMH/Surg Hx/FS Hx/Imm Hx Endocrine/Hematology History: Reports: Hx Blood Transfusions - in the past, Hx Thyroid Disease - UNDERACTIVE Denies: Hx Diabetes Cardiovascular History: Reports: Hx Hypertension - ON MEDICATION FOR Denies: Hx Pacemaker/ICD Respiratory History: Denies: Hx Asthma, Hx Chronic Obstructive Pulmonary Disease (COPD) GI History: Reports: Hx Diverticulosis, Hx Gall Bladder Disease - gall bladder removed, Other GI Disorders - HX OF DIVERTICULITIS/HX OF GI BLEED IN THE PAST Denies: Hx Ulcer Musculoskeletal History: Reports: Hx Arthritis - HANDS, Hx Rheumatoid Arthritis , Hx Back Problems - scoliosis, Hx Bursitis - BURSA UPPER LEFT LEG, Hx Tendonitis - HX OF Denies: Hx Osteoporosis Sensory History: Reports: Hx Cataracts, Hx Contacts or Glasses - glasses, Hx Glaucoma - BILATERAL-HAS A DRAIN TO THE RIGHT EYE PER PATIENT Denies: Hx Hearing Aid Opthamlomology History: Reports: Hx Cataracts, Hx Contacts or Glasses - glasses , Hx Glaucoma - BILATERAL-HAS A DRAIN TO THE RIGHT EYE PER PATIENT Neurological History: Reports: Other Neuro Impairments/Disorders - PERIPHERAL NEUROPATHY - Surgical History Surgery Procedure, Year, and Place: tonsils, deviated septum, carpal tunnel, rashard, cataracts-. SKIN CANCER REMOVED WITH GRAFTING TO [id number] Hx Anesthesia Reactions: No Infectious Disease History: Denies: Hx Hepatitis, Hx Human Immunodeficiency Virus (HIV), Hx of Known/ Suspected MRSA, History Other Infectious Disease - Family History Known Family History: Positive: Hypertension Negative: Cardiac Disease, Diabetes, Renal Disease, Respiratory Disease, Blood Disorder - Social History Alcohol Use: Weekly Alcohol Amount: 2/week Hx Substance Use: No Substance Use Type: Reports: None Hx Tobacco Use: Yes Smoking Status (MU): Former Smoker Amount Used/How Often: 5-6 CIGARETTES PER DAY X OFF AND ON 20 YEARS Have You Smoked in the Last Year: No Review of Systems Negative: Chest Pain Positive: Cough. Negative: Shortness Of Breath Positive: Abdominal Pain, Vomiting, Nausea. Negative: Diarrhea All Other Systems Reviewed And Are Negative: Yes Physical Exam - Summary Physical Exam Summary: Appearance: Well appearing, mild pain distress Skin: warm, dry, reflects adequate perfusion Head/face: normal Eyes: EOMI, pupils small ENT: mucous membranes moist Neck: supple, non-tender Respiratory: CTA, breath sounds present Cardiovascular: RRR, pulses symmetrical, no LE edema Abdomen: distended, tympanic, diffuse tenderness, worse suprapubic, scar LLQ and RRQ, small midline hernia, no masses, no CVA tenderness Bowel Sounds: increased Musculoskeletal: strength/ROM intact, rheumatoid deformity of hands Neuro: normal, sensory motor intact, A&Ox3 Triage Information Reviewed: Yes Vital Signs On Initial Exam: Initial Vitals Resp 20 10/08/18 03:40 Vital Signs Reviewed: Yes Diagnostics - Vital Signs Vital Signs Resp 10/08/18 03:40 20 - Laboratory Result Diagrams: 10/08/18 03:45 10/08/18 03:46 Lab Statement: Any lab studies that have been ordered have been reviewed, and results considered in the medical decision making process. - Radiology CXR Radiology Interpretation Completed By: ED Physician - No acute cardiopulmonary disease. Pending official radiology report. - CT CT A/P CT Interpretation Completed By: Radiologist - Persistent proximal small bowel obstruction. There is protrusion of bowel into the left inguinal hernia. Distention of the small bowel proximal to the hernia and the distal small bowel beyond the hernia is collapsed. No abnormal bowel wall thickening or pneumatosis. No abdominal mass is seen. ED physician reviewed radiology report. - EKG 3:27 Cardiac Rate: NL - 99 bpm EKG Rhythm: Sinus Rhythm Summary of EKG Findings: Nl axis, poor R wave progression, minimal ST depression in V5-V6 Abdominal Pain Fem Course/Dx - Course Course Of Treatment: Patient presents with gross abdominal distention and vomiting. There is increased bowel sounds and evidence for small bowel obstruction on CT scan. This appears to have a transition point at her prior site of surgery in the left inguinal canal. This was discussed with surgery who will admit the patient. An NG tube was placed for her distention. Hospitalist consult given her age and comorbidity. She has improved here in the ER. - Diagnoses Differential Diagnosis: Positive: Bowel Obstruction, Irritable Bowel Syndrome, Ovarian Cyst, Pancreatitis, Pneumonia, Renal Colic, Urinary Tract Infection Provider Diagnoses: Small bowel obstruction, Left inguinal hernia - Provider Notifications Discussed Care Of Patient With: Hollis Currie Time Discussed With Above Provider: 05:28 Instructed by Provider To: Admit As Inpatient Discharge - Sign-Out/Discharge Documenting (check all that apply): Patient Departure - Admit - Discharge Plan Condition: Fair Disposition: ADMITTED TO [facility] Referrals: Bijan Mhamood MD [Primary Care Provider] - - Billing Disposition and Condition Condition: FAIR Disposition: Admitted to [facility] - Attestation Statements Document Initiated by Scribe: Yes Documenting Scribe: Génesis Dangelo Provider For Whom Scribe is Documenting (Include Credential): Yonathan Lema MD Scribe Attestation: Génesis Sarabia scribed for Yonathan Lema MD on 10/08/18 at 0635. Scribe Documentation Reviewed: Yes Provider Attestation: The documentation as recorded by the Génesis levy accurately reflects the service I personally performed and the decisions made by me, Yonathan Lema MD
[2018-10-08 03:51] LABS: ABS Basophils 0 10^3/ul (0-0.2); ABS Eosinophils 0.3 10^3/ul (0-0.6); ABS Lymphocytes 0.6 10^3/ul (1.0-4.8); ABS Monocytes 0.8 10^3/ul (0-0.8); ABS Neutrophils 16.3 10^3/ul (1.5-7.7); ABS Nucleated RBC 0 10^3/ul; Eosinophil % 1.8 % (0-6); Hematocrit 46 % (35-47); Hemoglobin 15.2 g/dl (12.0-16.0); Lymphocyte % 3.1 % (25-47); Mean Corpuscular HGB Conc 33 g/dl (31-36); Mean Corpuscular Hemoglobin 29 pg (27-31); Mean Corpuscular Volume 87 fL (80-97); Nucleated Red Blood Cells % 0.1; Platelet Count 494 10^3/ul (150-450); Red Blood Count 5.23 10^6/ul (4.00-5.40); Red Cell Distribution Width 14 % (10.5-15); White Blood Count 17.9 10^3/ul (3.5-10.8)
[2018-10-08 03:56] LABS: INR 0.89 (0.77-1.02)
[2018-10-08 04:10] LABS: EGFR Non-African American 65.5 (>60)
[2018-10-08] MEDS ORDERED: Lidocaine 2% JELLY* 6 ML JELLY TOPICAL ONE (04:23)
--- OUTSIDE RECORDS SUMMARY | 2018-10-08 04:42 | XMS REPORT | Continuity of Care Document ---
:1935 External Reference #:[id number] Author Name Vikas Schwarz M.D. 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D. Active Onset: 10/22/2014 Acute conjunctivitis Hernandez Mcdonnell O.D. Active Onset: 12/07/2014 Scleritis Hernandez Mcdonnell O.D. Active Onset: 09/27/2015 Primary open-angle glaucoma, mild stage Hernandez Mcdonnell O.D. Active Onset: 09/27/2015 Keratoconjunctivitis sicca, not Hernandez Mcdonnell O.D. 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 Active Onset: 10/07/2016 Bilateral primary open angle glaucoma Hernandez Mckinney, OD Active Onset: 08/26/2016 Bilateral primary open angle glaucoma Vikas Schwarz M.D. Active Onset: 08/10/2016 Primary open-angle glaucoma, severe Vikas Schwarz M.D. Active stage Onset: 07/14/2016 Primary open-angle glaucoma, moderate Vikas Schwarz M.D. Active stage Onset: 01/27/2016 Presbyopia Hernandez Mcdonnell O.D. Active Family History Date Family Member(s) Problem(s) Comments General Blindness uncle General Glaucoma aunt and uncle General Cataract sister General Age-Related Macular Degeneration uncle General Heart Disease daughter Father Cancer Father due to Pancreatic Cancer () Father Glasses Father Arthritis Mother Glasses Mother due to Asthma () Mother Arthritis Mother High BP Social History Type Date Description Comments Sex Unknown ETOH Use Occasionally consumes alcohol Tobacco Use Start: Unknown End: Unknown Patient is a former smoker Smoking Status Reviewed: 09/21/18 Patient is a former smoker Allergies, Adverse Reactions, Alerts Date Description Reaction Status Severity Comments 11/23/2013 NKDA Active 11/23/2013 Seasonal Active Medications Medication Date Status Form Strength Qnty SIG Indications Ordering Provider Latanoprost 11/29 Active Solution 0.005% 7.500 1 drops both ml eyes every Schwarz, night M.D. Cosopt PF 03/08 Active Solution 22.3-6.8m 180un 1 drops both H40.1132 g/ml its eyes twice a Schwarz, day M.D. Restasis 07/11 Active Emulsion 0.05% 180un 1 drops both its eyes twice a Schwarz, day M.D. Enalapril Active Tablets 20mg Yves, Maleate / Kayla CASTELAN Amlodipine Active Tablets 5mg Yves Besylate / Kayla CASTELAN Levothyroxine Active Tablets 50mcg Yves, Sodium / Kayla CASTELAN Prempro Active Tablets 0.3-1.5mg Yves / Kayla CASTELAN Alprazolam Active Tablets 0.25mg Yves / Kayla CASTELAN Chlorthalidone Active Tablets 25mg Yves, / Kayla CASTELAN Atenolol Active Tablets 50mg Yves / Kayla CASTELAN Prazosin HCL Active Capsules 2mg Unknown / Zioptan 03/08 Hx Solution 0.0015% 30uni 1 drops both H40.1133 ts eyes every Schwarz, - day M.D. 11/30 Timolol Maleate 02/12 Hx Solution 0.5% 15uni 1 drops both H40.1133 ts eyes twice a Schwarz, - day M.D. 03/08 Latanoprost 02/12 Hx Solution 0.005% 2.500 1 drops both H40.1132 ml eyes every Schwarz, - night M.D. 03/08 Combigan 01/25 Hx Solution 0.2-0.5% 10uni 1 drop both H40.1133 ts eyes twice a Schwarz, - day M.D. 02/12 Latanoprost 08/05 Hx Solution 0.005% 2.5un instill one its drop in each Schwarz, - eye at M.D. 02/12 bedtime /2016 Prednisolone 12/07 Hx Suspension 1% 10ml 1 drop right 379.00 Hernandez Acetate eye six Sathya, - times a day, O.D. 01/24 shake well Tobramycin-Dexa 10/22 Hx Suspension 0.3-0.1% 5ml 1 drop four 372.00 Hernandez methasone /2013 times a day Sathya, - right eye O.D. 12/07 for one week Afluria PF Hx Suspension PF 13-14 inject 0.5 Unknown 3025-3649 / milliliter - intramuscula 09/21 rl Dorzolamide Hx Solution 22.3-6.8m Unknown HCL/Timolol /0000 g/ml Maleate - 02/05 Immunizations Description No Information Available Vital Signs Date Vital Result Comment 09/21/2018 10:37am Intraocular Pressure Right Eye 13 mmHg Intraocular Pressure Left Eye 15 mmHg 05/16/2018 10:35am Intraocular Pressure Right Eye 13 mmHg Intraocular Pressure Left Eye 15 mmHg 01/27/2018 11:23am Intraocular Pressure Right Eye 13 mmHg Intraocular Pressure Left Eye 17 mmHg 10/28/2017 10:19am Intraocular Pressure Right Eye 11 mmHg Intraocular Pressure Left Eye 16 mmHg 07/16/2017 10:52am Intraocular Pressure Right Eye 15 mmHg Intraocular Pressure Left Eye 17 mmHg 03/26/2017 11:51am Intraocular Pressure Right Eye 14 mmHg Intraocular Pressure Left Eye 18 mmHg 03/08/2017 11:32am Intraocular Pressure Right Eye 17 mmHg Intraocular Pressure Left Eye 20 mmHg 02/12/2017 10:47am Intraocular Pressure Right Eye 15 mmHg Intraocular Pressure Left Eye 15 mmHg 01/25/2017 1:55pm Intraocular Pressure Right Eye 15 mmHg Intraocular Pressure Left Eye 16 mmHg 01/13/2017 11:45am Intraocular Pressure Right Eye 17 mmHg Intraocular Pressure Left Eye 18 mmHg 12/30/2016 10:44am Intraocular Pressure Right Eye 18 mmHg Intraocular Pressure Left Eye 18 mmHg 10/07/2016 2:42pm Intraocular Pressure Right Eye 18 mmHg Intraocular Pressure Left Eye 15 mmHg 08/26/2016 11:20am Intraocular Pressure Right Eye 21 mmHg Intraocular Pressure Left Eye 17 mmHg 08/10/2016 11:40am Intraocular Pressure Right Eye 21 mmHg Intraocular Pressure Left Eye 21 mmHg 01/27/2016 10:57am Intraocular Pressure Right Eye 18 mmHg Intraocular Pressure Left Eye 18 mmHg 09/27/2015 10:41am Intraocular Pressure Right Eye 20 mmHg Intraocular Pressure Left Eye 20 mmHg 05/27/2015 11:07am Intraocular Pressure Right Eye 20 mmHg Intraocular Pressure Left Eye 21 mmHg 01/24/2015 10:58am Intraocular Pressure Right Eye 21 mmHg Intraocular Pressure Left Eye 18 mmHg 12/26/2014 11:26am Intraocular Pressure Right Eye 21 mmHg Intraocular Pressure Left Eye 18 mmHg 12/12/2014 12:01pm Intraocular Pressure Right Eye 22 mmHg 12/07/2014 10:30am Intraocular Pressure Right Eye 17 mmHg 10/22/2014 1:29pm Intraocular Pressure Right Eye 18 mmHg Intraocular Pressure Left Eye 18 mmHg 07/27/2014 10:54am Intraocular Pressure Right Eye 19 mmHg Intraocular Pressure Left Eye 19 mmHg 03/26/2014 11:00am Intraocular Pressure Right Eye 22 mmHg Intraocular Pressure Left Eye 22 mmHg 11/23/2013 11:10am Intraocular Pressure Right Eye 23 mmHg Intraocular Pressure Left Eye 22 mmHg Results Description No Information Available Procedures Date Code Description Status 09/21/2018 17947 Visual Field Exam Extended, Unilateral Or Bilateral Completed 09/21/2018 82500 Eye Exam Est Intermediate Completed 05/16/2018 17029 Oct, Optic Nerve Completed 05/16/2018 08499 Eye Exam Est Intermediate Completed 01/27/2018 67440 Eye Exam Est Intermediate Completed 10/28/2017 81061 Fundus Photography W/Interpretation & Report Completed 10/28/2017 96570 Eye Exam Est Intermediate Completed 07/16/2017 56875 Visual Field Exam Extended, Unilateral Or Bilateral Completed 07/16/2017 81899 Eye Exam Est Intermediate Completed 04/16/2017 31103 External Photography W/Interpretation & Report Completed 04/16/2017 94036 Excision Lesion Eyelid Completed 08/10/2016 90018 Oct, Optic Nerve Completed 08/10/2016 06140 Eye Exam Est Intermediate Completed 07/14/2016 95463 Visual Field Exam Extended, Unilateral Or Bilateral Completed 07/14/2016 68636 Visual Field Exam Extended, Unilateral Or Bilateral Completed 01/27/2016 49605 Eye Exam Est Comprehensive Completed 01/27/2016 83065 Refraction Completed 01/27/2016 99487 Fundus Photography W/Interpretation & Report Completed 05/27/2015 35774 Oct, Optic Nerve Completed 05/27/2015 46332 Eye Exam Est Intermediate Completed 01/24/2015 21135 Visual Field Exam Extended, Unilateral Or Bilateral Completed 01/24/2015 50740 Eye Exam Est Intermediate Completed 12/26/2014 80570 Eye Exam Est Intermediate Completed 12/12/2014 94456 Eye Exam Est Intermediate Completed 12/07/2014 34148 Eye Exam Est Intermediate Completed 10/22/2014 40741 Eye Exam Est Intermediate Completed 07/27/2014 56468 Eye Exam Est Intermediate Completed 03/26/2014 68087 Eye Exam Est Intermediate Completed 11/23/2013 41090 Oct, Optic Nerve Completed 11/23/2013 12392 Visual Field Exam Extended, Unilateral Or Bilateral Completed 11/23/2013 66205 Eye Exam Est Intermediate Completed Encounters Type Date Location Provider Dx Diagnosis Office Visit 03/26/2017 Main Office Jose Avila0.1133 Primary open- angle 11:30a M.D. glaucoma, bilateral, severe stage Office Visit 03/08/2017 Main Office Jose Avila0.1133 Primary open- angle 11:15a M.D. glaucoma, bilateral, severe stage H04.123 Dry eye syndrome of bilateral lacrimal glands D23.12 [facility] benign neoplasm skin/ left eyelid, including canthus Office Visit 02/12/2017 10:30a Main Office Jose Avila0.1133 Primary M.D. open-angle glaucoma, bilateral, severe stage Office Visit 01/25/2017 1:45p Main Office Jose Avila0.1133 Primary M.D. open-angle glaucoma, bilateral, severe stage H04.123 Dry eye syndrome of bilateral lacrimal glands Office Visit 01/13/2017 11:30a Main Office Peter Schwarz, H40.1133 Primary M.D. open-angle glaucoma, bilateral, severe stage H04.123 Dry eye syndrome of bilateral lacrimal glands Office Visit 12/30/2016 10:30a Main Office Vikas Schwarz, H40.1133 Primary M.D. open-angle glaucoma, bilateral, severe stage Office Visit 10/07/2016 2:15p Main Office Hernandez Mckinney H40.1133 Primary OD open-angle glaucoma, bilateral, severe stage H04.123 Dry eye syndrome of bilateral lacrimal glands Office Visit 08/26/2016 11:15a Main Office Vikas Schwarz H40.1133 Primary M.D. open-angle glaucoma, bilateral, severe stage Office Visit 09/27/2015 10:15a Main Office Hernandez Mcdonnell, H40.11x1 Primary O.D. open-angle glaucoma, mild stage H16.223 Keratoconjunct sicca, not specified as Sjogren's, bilateral Office Visit 10/25/2014 11:30a Main Office Hernandez Mcdonnell, 372.00 Conjunctivitis Acute O.D. Unspec Plan of Treatment 09/21/2018 - Vikas Schwarz M.D.H40.1133 Primary open-angle glaucoma, bilateral , severe ujnybZ69.143 Punctate keratitis, bilateralFollow up:3 mos full
--- NOTE | 2018-10-08 10:49 | ED ---
Progress - Progress Note Progress Note: Pt is an 82 y/o F presenting to ED with abd pain and n/v/constipation. Pt was seen by Dr. Lema on 10/08/18 and admitted to [facility] at shift change. 07:19: Consult with Dr. Currie, surgery Reduced hernia. Wants to observe patient in ED for a short while. 10:00: Consult with Dr. Alfredo, surgery Agrees to admit patient. 10:20: Consult with Dr. Alfredo Pt does not want to be admitted. Pt is comfortable. Recommends fluids and see if she tolerates PO, is so, OK to D/C home. 10:23: ED provider at bedside Patient is happy that the NG tube has been removed, she will get fluids to see if she tolerates. 11:17: ED provider at bedside Pt spoke with her , and is requesting to be admitted for the night. 11:22: Consult with Dr. Alfredo Will admit. NPO. Course/Dx - Course Course Of Treatment: This patient was signed out to Dr. Lema awaiting for a consult from Dr. Currie. Dr. Currie reports that he was able to reduce the hernia. He reports that Dr. Alfredo. Will come and reassess the patient. After his reassessment he removed the NG tube and he recommends for the patient to be given 1 L of fluids, get a by mouth challenge and if she is able to tolerated the patient will be discharged home with follow-up with Dr. Alfredo at his office.. I was called by the patient to the room and now the patient states that she wants to state in the hospital. She spoke with her and she thinks that the better option for her is to stay admitted to the hospital for observation. Patient continues to be hemodynamically stable alert and oriented 3. I discussed the wishes with Dr. Alfredo from surgery and he agrees to admit the patient to his services for further workup and management. - Diagnoses Provider Diagnoses: SBO (small bowel obstruction), Incarcerated hernia Discharge - Sign-Out/Discharge Documenting (check all that apply): Patient Departure - ADMIT - Discharge Plan Condition: Stable Disposition: ADMITTED TO [facility] - Billing Disposition and Condition Condition: STABLE Disposition: Admitted to [facility] - Attestation Statements Document Initiated by Scribe: Yes Documenting Scribe: SooYoung VanDeMark Provider For Whom Scribe is Documenting (Include Credential): Dr. Joe Dunbar MD Scribe Attestation: I, Santo Weaver, scribed for Dr. Joe Dunbar MD on 10/08/18 at 1854. Scribe Documentation Reviewed: Yes Provider Attestation: The documentation as recorded by the camronibrito, Santo Weaver accurately reflects the service I personally performed and the decisions made by me, Dr. Joe Dunbar MD
--- NOTE | 2018-10-08 12:10 | CONS ---
CC: Dr. Bijan Mahmood; [facility]; [facility]; Jorge Howe NP SURGICAL HISTORY AND PHYSICAL EXAM DATE OF H&P: 10/08/18 HISTORY OF PRESENT ILLNESS: Ms. Sinclair is an 82-year-old female known to me after presenting earlier this year with small bowel obstruction secondary to an inguinal hernia on the left. The patient underwent workup and ultimately an open left inguinal hernia repair in April. The patient's postoperative course was uneventful. However, the patient presented earlier this morning with a 1- day history of abdominal bloating and persistent nausea and vomiting. The patient described having mild abdominal pain for about 2 days. She had been coughing for close to a week now where it has been a dry cough and she has sick contacts at home. She presented to the ER where she underwent a workup including a CT scan of the abdomen and pelvis that showed recurrent left inguinal hernia likely femoral hernia. She was seen by Dr. Currie in the emergency room where he manually reduced the hernia and the patient showed some improvement. She did have an NG tube placed and had 700 cc of stomach contents removed. The patient denies any fevers or chills. She is not passing flatus at this time. She has no abdominal pain at this time. Small appetite. PAST MEDICAL HISTORY: Idiopathic peripheral neuropathy, vertigo, hypothyroidism and hypertension. PAST SURGICAL HISTORY: Cataract, cholecystectomy and inguinal hernia repair. This was noted to be a direct hernia. I did not identify a femoral hernia but evaluated the space. She underwent a mesh repair and the round ligament was not taken. MEDICATIONS: List reviewed. ALLERGIES: List reviewed. PHYSICAL EXAM: The patient is afebrile, heart rate 90s to 100s, blood pressure 100s to 140s systolic, respirations are 17, O2 sat of 100. She is alert and oriented x3, in no apparent distress. Head, Ears, Eyes, Nose, and Throat: Normocephalic and atraumatic. Sclerae are injected, but show no jaundice. Neck : No lymphadenopathy. Lungs are clear to auscultation bilaterally. Abdomen is soft, mildly distended, and nontender. Hypoactive bowel sounds. Well-healed surgical incision. No groin masses at this time. Rectal exam not performed. Extremities within normal limits. DIAGNOSTIC STUDIES/LAB DATA: Show an elevated white blood cell count of 18 with left shift and does include a hematocrit of 46 which is above the patient' s baseline of 40. Chemistry panel shows mildly elevated BUN and creatinine ratio. Normal lactate. Lipase is 107, reference range is 11 to 82. CRP of 1.7. CT scan reviewed and shows small bowel obstruction with left inguinal hernia. IMPRESSION: Small bowel obstruction secondary to recurrent left inguinal hernia despite repair. I discussed with the patient the failure of the repair and the likely need for return to the operating room. Questions were answered and I described to her that this is not an expected outcome. I did make recommendation of admission and IV fluids and observation with plan for surgical intervention. The patient does not want to stay in the hospital at this point as she is feeling well. I described to her the likelihood that we would want to take her to the operating room relatively soon, does not have to be emergently but within the next 2 weeks for repair of failed inguinal hernia repair. We did discuss the possibility that this has exacerbated a femoral hernia which was not identified during our initial surgery. The patient understands the likely need for surgical intervention and we will look towards putting her on the schedule. I outlined the details of the procedure to her. I believe the patient can potentially go home knowing that she will be able to follow up. We also talked about the possibility of recurrence in a short period of time and the need to certainly come in and be hospitalized. I took her NG tube out today. We will give her some liquids and see if she tolerates them. Additionally, I would like to give her another liter of fluid. I talked to the ER doctor regarding this. If the patient continues to feel as well as she does at this point, then I think it is okay to send her home knowing that if this should recur she will reach out to us. If the patient does not tolerate any p.o. liquids or does not continue to feel well over the course of the next 2 hours, then certainly we will admit her on to our services. This was discussed with both the patient and the ER physicians. We have a low threshold to admit, but I do understand the patient's desire to go home and be with her and to have her regular medications now that she has had the hernia reduced. [id number]/[facility] #: [id number] THAI
[2018-10-08] MEDS ORDERED: NS 0.9% 1000 ML* 1,000 ML IV SCH (13:30)
[2018-10-08] MEDS ORDERED: Acetaminophen TAB* 325 MG PO PRN (14:33)
[2018-10-08] MEDS ORDERED: Ondansetron INJ* 2 MG/ML VIAL IV PRN (14:33)
[2018-10-08] MEDS: NS 0.9% 1000 ML* 1,000 ML IV SCH (14:47)
[2018-10-08] MEDS: CYCLOSPORINE 0.05% BOTH EYES SCH (21:00)
[2018-10-08] MEDS: Enalapril TAB* 20 MG PO SCH (21:05)
[2018-10-08] MEDS: TIMOLOL OPTH BOTH EYES SCH (21:05)
[2018-10-08] MEDS: DORZOLAMIDE BOTH EYES SCH (21:05)
--- NOTE | 2018-10-08 21:41 | CONS ---
CONSULTATION REPORT: DATE OF CONSULT: 10/08/18. SERVICE REQUESTING CONSULTATION: Surgery. REASON FOR CONSULT: Medical comanagement. SOURCE OF INFORMATION: History obtained from interview with the patient, review of the past medical records. RELIABILITY: Good. HISTORY OF PRESENT ILLNESS: This is an 82-year-old female, hospital stay at [facility] in February 2018, who was presenting with nausea, vomiting, found with inguinal hernia, ultimately underwent left inguinal hernia repair in April, returning today developing abdominal pain for about two days, found with recurrent small bowel obstruction, secondary to recurrent left inguinal hernia. In the emergency room, the hernia was manually reduced and she had an NG tube placed and the patient was going to go home; however, was convinced to stay by her . The Hospitalist were consulted for medical comanagement prior to potential surgical intervention early next week. When seen by this author, the patient was in no pain, and no distress, had no nausea, vomiting. She does note that her was sick about a week ago with a cough, but no fevers, improved without antibiotics and she has had new onset of cough over the last one or two days, but again without fevers, sinus pressure, chills, symptoms. Currently, her pain is well controlled. Her nausea is well controlled. She did not have an NG tube in place. PAST MEDICAL HISTORY: Peripheral neuropathy, hypertension, hypothyroidism, BPPV , glaucoma, scoliosis, and a history of diverticulitis. PAST SURGICAL HISTORY: Right eye surgery, deviated septum, cataract extraction bilateral, cholecystectomy, right carpal tunnel release, tonsillectomy, left inguinal hernia repair. HOME MEDICATIONS: 1. Pyridoxine 100 mg in the morning. 2. MiraLAX 17 g in the evening. 3. Percocet 2.5/325 every 4 hours as needed. 4. Amlodipine 5 mg every morning. 5. Vitamin B12 mcg in the morning. 6. Calcium-vitamin D-magnesium 91-ccpv-wgcjzl-magnesium borate one tab twice daily. 7. Aspirin 81 mg daily. 8. Levothyroxine 50 mcg in the morning. 9. Enalapril 20 mg twice daily. 10. Cosopt eye drops one drops both eyes twice daily. 11. Restasis one drop both eyes twice daily. ALLERGIES: NSAIDS. FAMILY HISTORY: Mother with CVA, father with a history of colon and pancreatic cancer. 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 is her healthcare proxy. REVIEW OF SYSTEMS: As per HPI, otherwise all other systems are negative. PHYSICAL EXAM: Vitals: Blood pressure 132/54, heart rate 89, respiratory rate is 18, she is 99% on room air, T-max 99.4. General: Younger than stated age, sitting up in bed, interactive, pleasant, in no apparent distress. Oropharynx is clear. She has dry mucous membranes. Sclerae are anicteric. She has not elevated JVD. No supraclavicular or cervical lymphadenopathy. She has a regular rate and rhythm. She has a soft 1 to 2/6 systolic ejection murmur. Lungs are clear to auscultation. Abdomen is soft, nontender to palpation. Positive bowel sounds. Extremities are warm, well perfused without clubbing, cyanosis, or edema. She is alert and oriented x3. Cranial nerves II through XII are intact. She has no apparent anxiety, agitation or depression. DIAGNOSTIC STUDIES/LAB DATA: Labs are reviewed. White blood cell count is 17.9 , platelets 494, hemoglobin 15.2, BUN 17, creatinine 0.83. Lipase 107. Data reviewed: CT abdomen and pelvis. Impression: Persistent proximal small bowel obstruction, there is protrusion of the bowel into the left inguinal hernia. Distension of the small bowel proximal to the hernia and distal small felt beyond the hernia is collapsed. No abnormal bowel wall thickening or pneumatosis. No abdominal masses seen. Chest x-ray: No active cardiopulmonary diseases noted. EKG: Impression: Sinus tachycardia, ventricular rate of 99, left axis, Q's anteriorly V1 through V3 and inferolaterally II and AVF, unchanged from February. ASSESSMENT AND PLAN: This is an 82-year-old female with a past medical history as outlined above, recent hernia repair in April, returning with recurrent hernia. Planned for surgery. Appears likely surgery next week. The patient has no cardiac risk factors, generally active at home. No change since her last surgery. She has had at no increased risks since last surgery. Her kidneys remain stable. She has low risk with a RCRI (revised cardiac risk index ) although this is not fully taken into account her age. No further investigations necessary prior to any planned procedure. Hypertension. We will start home enalapril again this evening. Holding amlodipine, can restart as necessary. Hypothyroidism. Restart Synthroid in the morning. Glaucoma. Continue home eyedrops. DVT prophylaxis: SCDs. We will continue to follow. [id number]/[facility] #: [id number] THAI
[2018-10-08] MEDS: PTO: Latanoprost 0.005%* 2.5 ml BTL BOTH EYES SCH (23:20)
[2018-10-09] MEDS: NS 0.9% 1000 ML* 1,000 ML IV SCH ×2 (03:50→17:29)
[2018-10-09] MEDS: Levothyroxine TAB* 50 MCG TAB PO SCH (06:10)
[2018-10-09 06:13] LABS: ABS Basophils 0 10^3/ul (0-0.2); ABS Eosinophils 0.4 10^3/ul (0-0.6); ABS Lymphocytes 0.8 10^3/ul (1.0-4.8); ABS Neutrophils 6.3 10^3/ul (1.5-7.7); ABS Nucleated RBC 0 10^3/ul; Eosinophil % 4.7 % (0-6); Hematocrit 33 % (35-47); Lymphocyte % 9.2 % (25-47); Mean Corpuscular HGB Conc 34 g/dl (31-36); Mean Corpuscular Hemoglobin 29 pg (27-31); Mean Corpuscular Volume 86 fL (80-97); Nucleated Red Blood Cells % 0; Platelet Count 362 10^3/ul (150-450); Red Blood Count 3.79 10^6/ul (4.00-5.40); Red Cell Distribution Width 14 % (10.5-15); White Blood Count 8.5 10^3/ul (3.5-10.8)
[2018-10-09 06:39] LABS: EGFR Non-African American 93.4 (>60)
[2018-10-09] MEDS: Enalapril TAB* 20 MG PO SCH ×2 (08:45→21:53)
[2018-10-09] MEDS: Pyridoxine TAB* 50 MG PO SCH (08:45)
[2018-10-09] MEDS: TIMOLOL OPTH BOTH EYES SCH ×2 (08:46→21:55)
[2018-10-09] MEDS: DORZOLAMIDE BOTH EYES SCH ×2 (08:46→21:55)
[2018-10-09] MEDS: CYCLOSPORINE 0.05% BOTH EYES SCH ×2 (09:14→22:54)
--- NOTE | 2018-10-09 13:09 | PN ---
Progress Note - Progress Note Date of Service: 10/09/18 SOAP: Subjective: Pt seen and examined. Feels well. Pos appetite., no nausea, no abdo pain Daughter at bedside Objective: Temp Pulse Resp BP Pulse Ox 98.2 F 56 16 126/47 97 10/09/18 11:36 10/09/18 11:36 10/09/18 11:36 10/09/18 11:36 10/09/18 11:36 a and o x3, nad abdo: soft/ mild distension, NT no contents in L groin hernia Assessment: recurrent LIH; resolving SBO Plan: OR tomorrow for lapascopic left inguinal hernia rrepair with mesh
[2018-10-09] MEDS: PTO: Latanoprost 0.005%* 2.5 ml BTL BOTH EYES SCH (23:18)
[2018-10-10] MEDS: Levothyroxine TAB* 50 MCG TAB PO SCH (05:37)
[2018-10-10] MEDS: NS 0.9% 1000 ML* 1,000 ML IV SCH (06:40)
[2018-10-10] MEDS: DORZOLAMIDE BOTH EYES SCH (08:23)
[2018-10-10] MEDS: TIMOLOL OPTH BOTH EYES SCH (08:23)
[2018-10-10] MEDS: Pyridoxine TAB* 50 MG PO SCH (09:01)
[2018-10-10] MEDS: Enalapril TAB* 20 MG PO SCH (09:01)
[2018-10-10] MEDS: CYCLOSPORINE 0.05% BOTH EYES SCH (09:49)
[2018-10-10] MEDS ORDERED: Morphine PCA ADULT* 5 MG/ML 30 ML ONE (13:56)
[2018-10-10] MEDS ORDERED: fentaNYL* 50 MCG/ML 2 ML VIAL (100 MCG VIAL) ONE (17:33)
[2018-10-10] MEDS ORDERED: Propofol* 10 MG/ML 20 ML BTL ONE (17:33)
[2018-10-10] MEDS ORDERED: Lidocaine 2% PF * 5 ML VIAL ONE ×2 (17:33→17:40)
[2018-10-10] MEDS ORDERED: Propofol* 500 MG/50 ML BTL ONE ×2 (17:40→20:32)
[2018-10-10] MEDS ORDERED: Remifentanil* 2 MG VIAL ONE (17:42)
[2018-10-10] MEDS ORDERED: Lidocaine 1% INJ* 10 MG/ML 30 ML SDV ONE (20:04)
[2018-10-10] MEDS ORDERED: Bupivacaine 0.5% W/EPI SDV* 30 ML VIAL ONE (20:04)
[2018-10-10] MEDS ORDERED: ceFAZolin 2 GM PREMIX in ORs 2 GM/50 ML BAG IVPB ONE (20:10)
[2018-10-10] MEDS ORDERED: Naloxone* 0.4 MG/ML 1 ML VIAL IV PRN (21:06)
[2018-10-10] MEDS ORDERED: fentaNYL* 50 MCG/ML 2 ML VIAL (100 MCG VIAL) IV PRN (21:06)
[2018-10-10] MEDS ORDERED: Acetaminophen TAB* 325 MG PO PRN (21:06)
--- NOTE | 2018-10-10 21:09 | OP ---
Operative Report - Blank - Operative Report Date of Operation: 10/10/18 Note: Brief Operative Note Preop Dx: Left femoral hernia Postop Dx: same Procedure: open repair Left femoral hernia Anesthesia: local MAC Surgeon: Rosey Corn Cutter Operator: BAM Bazan Fluids: 600 ml RL EBL: none Specimen: none Drains: none Findings: dictated
[2018-10-10] MEDS ORDERED: Acetaminophen TAB* 325 MG ONE (21:38)
[2018-10-10 22:07] VITALS: BP 144/86
--- NOTE | 2018-10-11 20:33 | OP ---
DATE OF OPERATION: 10/10/18 - ROOM #334 DATE OF : 31 SURGEON: Hollis Currie MD RESEARCH DEVELOPMENT DIRECTOR: BAM Fields ANESTHESIA: Local with monitored anesthesia care with Dr. Shruthi Mcmahon. PRE-OP DIAGNOSIS: Incarcerated left femoral hernia. POST-OP DIAGNOSIS: Incarcerated left femoral hernia. OPERATIVE PROCEDURE: Open repair with mesh of an incarcerated left femoral hernia. WOUND CLASSIFICATION: I. DRAINS: None. SPECIMENS: None. COMPLICATIONS: None. BRIEF HISTORY: Ms. Marisa Sinclair is an 82-year-old woman who had undergone a left inguinal hernia in the past with mesh who presented to the emergency room 2 days ago with symptoms consistent with a small bowel obstruction. A CT scan was obtained which showed what appeared to be an incarcerated left femoral hernia. This was reduced in the emergency room and she had subsequent resolution of her small bowel obstruction, and is now being taken to the operating room for an elective open repair of a left femoral hernia to prevent future complication. The procedure was discussed with the patient. The risks of, but not limited to , bleeding, infection, recurrence, the use of mesh, injury to peritoneal and retroperitoneal structures, vascular injury, and discomfort were all explained. DESCRIPTION OF PROCEDURE: Written and informed consent was obtained, the left groin was marked with indelible ink and preoperative antibiotics were administered. The patient was taken to the operating room and placed in the supine position. Sequential compression devices and a warming blanket were applied. Sedation was administered, and the left groin and upper thigh were prepped and draped in the usual sterile fashion. A time-out was verification was completed. Initially 0.25% Marcaine mixed with 1% lidocaine was infiltrated in the upper thigh about a fingerbreadth below the left inguinal crease just over the palpable bulge. An oblique incision was made and then carried down through the subcutaneous tissue, where we were able to identify some protuberant what appeared to be extraperitoneal fat as well as a hernia sac and this was reduced back up into a femoral hernia defect which was only approximately 6 to 8 mm in diameter but was completely reduced. Using a Gita clamp, the femoral canal was easily traversed 3 to 4 cm into the extraperitoneal space. With this complete, a cylinder of polypropylene mesh was then created approximately 3.5 cm in length by a diameter of approximately 8 mm and was placed into the femoral hernia space without difficulty. This was cut to the appropriate length and this was sutured in two places, to the anterior abdominal musculature superiorly and the musculature medially. Hemostasis was assured. The wound was closed in layers with 3-0 and 4-0 Vicryl suture. Steri-Strips and sterile dressings were applied. The patient tolerated the procedure well, was taken to the recovery room in stable condition. [id number]/[facility] #: [id number] [facility]
--- NOTE | 2018-10-12 03:41 | DS ---
CC: Dr. Baron Alfredo; Dr. Bijan Mahmood; [facility] * DISCHARGE SUMMARY: DATE OF ADMISSION: 10/08/18 DATE OF DISCHARGE: 10/10/18 ATTENDING SURGEON: Dr. Currie.* (DICTATED BY BAM CUETO) HOSPITAL COURSE: Please refer to admission history and physical as dictated by Dr. Alfredo from 10/08/18. Briefly, the patient had undergone an open repair of a direct space left inguinal hernia with mesh in April of this year with Dr. Alfredo. Beginning 1 day prior to admission, she was noted to have abdominal bloating, nausea, and vomiting. CT scan on admission showed an obstruction point at the left inguinal region, felt likely to be a femoral hernia. She was seen by Dr. Currie in the emergency room where he manually reduced the hernia and she showed improvement. She was monitored over the next 24 to 48 hours and was found to be pain free and tolerating liquids. She was taken to the operating room on the evening of 10/10/18 and underwent open repair of left femoral hernia with mesh by Dr. Currie. Surgery was uneventful and she was discharged from the recovery room in good condition. She will resume her usual home medications without change. She will use Tylenol p.r.n. for pain. Written instructions were provided and she will contact our office for followup within 7 to 10 days. BAM CUETO [id number]/[facility] #: [id number]
== END 2018-10-10 21:39 | disposition home or self-care (01) | DRG 352 ==
LOC: ED 03:14 → SSU 11:24 → OBSVTOIN 10-10 13:00
PROVIDERS: ADMIT Surgery; ATTEND Surgery
PROC: 0YU80JZ Supplement Left Femoral Region with Synthetic Substitute, Open Approach (ICD-10-PCS; principal; 2018-10-10 13:30)
DX: K41.30 Unilateral femoral hernia, with obstruction, without gangrene, not specified as recurrent (principal); I10 Essential (primary) hypertension; K57.90 Diverticulosis of intestine, part unspecified, without perforation or abscess without bleeding; M19.042 Primary osteoarthritis, left hand; M19.041 Primary osteoarthritis, right hand; M06.9 Rheumatoid arthritis, unspecified; M06.842 Other specified rheumatoid arthritis, left hand; M06.841 Other specified rheumatoid arthritis, right hand; E03.9 Hypothyroidism, unspecified; M41.9 Scoliosis, unspecified; H40.9 Unspecified glaucoma; G62.9 Polyneuropathy, unspecified; Z98.42 Cataract extraction status, left eye; Z98.41 Cataract extraction status, right eye; Z85.828 Personal history of other malignant neoplasm of skin; Z72.89 Other problems related to lifestyle; Z87.891 Personal history of nicotine dependence; Z88.6 Allergy status to analgesic agent; Z90.49 Acquired absence of other specified parts of digestive tract; Z82.49 Family history of ischemic heart disease and other diseases of the circulatory system; Z82.3 Family history of stroke; Z80.0 Family history of malignant neoplasm of digestive organs
CPT/HCPCS: 36415; 71045; 74018; 74176; 80048; 80053; 83605; 83690; 84484; 85025; 85610; 86140; 87641; 93005; 99285; A9270-GY; C1781; G0378; J0690; J2270; J2405; J2704; J3010

== ENCOUNTER → 2019-04-26 13:27 | Emergency (ER) | payer MEDICARE, OTHER ==
--- OUTSIDE RECORDS SUMMARY | 2019-04-26 14:03 | XMS REPORT | Continuity of Care Document ---
:1935 External Reference #:[id number] Author Name Heath, Makayla Care Team Providers Name Role Phone Tali Carter M.D. Primary Care Physician Unavailable Payers Date Identification Numbers Payment Provider Subscriber Effective: 1998 Policy Number: [id number] Medicare [place] PayID: [id number] [address] [place] [address] Effective: 2012 Policy Number: [employer] Benefit [place] [id number] Solution Group Number: [id number] [address] PayID: [id number] VICTORIANO Botello [phone] Advance Directives Type Date Description Status Comment Other Directive 01/18/2016 Living Will Current and Verified Other Directive 07/11/2015 Health Care Proxy Current and Verified Problems Active Problems Provider Date Benign essential hypertension Kayla Marinelli M.D. Onset: 02/09/2013 Menopausal and postmenopausal disorders Kayla Marinelli M.D. Onset: 02/09/2013 Hypothyroidism Kayla Marinelli M.D. Onset: 02/09/2013 Benign paroxysmal positional vertigo Kayla Marinelli M.D. Onset: 02/09/2013 Sprain of wrist and/or hand Kayla Marinelli M.D. 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 Cigarette Use Pack Years - 11 ETOH Use 02/23/2017 2 drinks per week Tobacco Use Start: Unknown Patient is a former End: Unknown smoker Recreational Drug Use Never Used Drugs Tobacco Use Start: Unknown Started at 16, quit smoking in 1992, was a light smoker Smoking Status Reviewed: 04/26/19 Started at 16, quit smoking in 1992, was a light smoker Exercise Type/Frequency Exercises rarely Exercise Type/Frequency used to walk before vertigo Allergies, Adverse Reactions, Alerts Description No Known Drug Allergies Medications Active Medications SIG Qnty Indications Ordering Date Provider Amlodipine Besylate take 1 tablet by 90tabs I10 Jorge Howe NP 03/14/2013 5mg mouth every Tablets morning Restasis one gtts ou once 2units Kayla Marinelli, 02/09/2013 0.05% Emulsion a day M.D. Blood Pressure Monitor ck in am and 1units I10 Kayla Marinelli, 02/09/2013 Automatic With Small evening M.D. Cuff Kit Enalapril Maleate take 1 tablet by 180tabs Tali Carter MD 02/09/2013 20mg mouth twice a Tablets day Levothyroxine Sodium take 1 tablet by 90tabs Tali Carter MD 02/09/2013 mouth once daily 50mcg Tablets Vitamin B-12 CR 1 po qd Unknown 1000mcg Tablets ER Mag64 once a day Unknown 535(64mg) mg Tablets ER Vitamin B 6 once a day Unknown 100mcg Lozenges Aspirin 81 po qd Unknown 81mg Tablets DR Caltrate 600+D 1 po bid Unknown [id number] Chewtabs Miralax 17 gm qd prn 1mon Unknown 3350NF Packet Latanoprost both eyes once Unknown 0.005% daily Solution Pyridoxine HCL 1 tablet daily Unknown 100mg in am Tablets History Medications Ketoconazole apply once daily 60gm Other Ordering 07/31/2016 - 2% Cream to affected area Provider 02/23/2017 Alprazolam 1/2- 1 tab 20 2tabs 300.09 Kayla Marinelli 04/20/2013 - 0.25mg Tablets min prior to M.D. 09/25/2013 dental work Amlodipine Besylate take 1 tablet by 30tabs 401.1 Kayla Marinelli, 2012 - 5mg mouth every M.D. 08/16/2014 Tablets morning Chlorthalidone 1 po am 30tabs 401.1 Kayla Marinelli, 02/23/2013 - 25mg M.D. 09/25/2013 Tablets Prazosin HCL 1 po qd Kayla Marienlli 02/09/2013 - 2mg Capsules M.D. 12/07/2013 Atenolol 1/2 tab po at 30tabs Kaylaisaac Marinelli 02/09/2013 - 50mg Tablets bedtime M.D. 03/14/2013 Dorzolamide one drop right 10ml Kayla Marinelli 02/09/2013 - HCL/Timolol Maleate eye bid M.D. 05/02/2014 22.3-6.8mg/ml Solution Travatan Z 1 drop in right 5ml Kaylaisaac Marinelli 02/09/2013 - 0.004% eyes qhs M.D. 11/24/2016 Solution Prempro take 1 tablet by 30tabs Kaylaisaac Marinelli 02/09/2013 - 0.3-1.5mg Tablets mouth once M.D. 04/19/2016 weekly Glucosamine 1 po bid Unknown - Chondroitin 1500 02/23/2017 Complex 1500Com Capsules Cosopt PF 1 gtt right eye Hernandez Mcdonnell, - 22.3-6.8mg/ml bid O.D. 02/23/2017 Solution Timolol Maleate instill 1 drop Unknown - 0.5% into both eyes 07/01/2017 Solution twice a day Latanoprost Unknown - 0.005% 07/01/2017 Solution Vitamin B12 1 daily Unknown - 1000mcg 02/23/2017 Zioptan 1 gtt in ou once Vikas Schwarz - 0.0015% Solution a day MD Curtis 02/21/2018 Cosopt PF Unknown - 22.3-6.8mg/ml 03/15/2018 Solution Medications Administered in Office Medication SIG Qnty Indications Ordering Provider Date MISTY Mahmood, 02/21/2018 Injection [place],FACP Inj, Regadenoson, 0.1 MG Parveen Tierney M.D., 04/24/2013 Injection NATHALY BARON Technetium TC 99M Parveen Tierney M.D., 04/24/2013 Tetrofosmin, Per Unit Dose NATHALY BARON Up To 40 Millicuries Injection Immunizations CPT Code Status Date Vaccine Reaction Lot # [id number] Given 08/18/2017 Influenza Virus 3Yrs & Over 94836 Given 02/23/2017 Pneumococcal Conjugate pt tolerated well ... [id number] Vaccine 13 Valent For no immediate Intramuscular Use reaction [place] ... [id number] Given 08/27/2016 Fluzone High Dose 02172 Given 09/05/2015 Influenza Virus Vaccine, Quadrivalent, Split, Preservative Free 86960 Given 08/15/2015 Influenza Virus Vaccine, [id number] Quadrivalent, Split, Preservative Free Q2037 Given 08/09/2014 Fluvirin Im 3Yrs And Older Q2039 Given 08/22/2013 Flu Vaccine NOS 08043 Given 11/15/2002 Pneumonia Vaccine Vital Signs Date Vital Result Comment 04/26/2019 11:37am Height 63 inches 5'3" Weight 131.25 lb Heart Rate 70 /min BP Systolic 120 mmHg BP Diastolic 60 mmHg Body Temperature 97.7 F O2 % BldC Oximetry 97 % BMI (Body Mass Index) 23.2 kg/m2 10/19/2018 10:56am Heart Rate 104 /min Respiratory Rate 16 /min Body Temperature 96.4 F 06/03/2018 1:47pm Heart Rate 60 /min Respiratory Rate 18 /min Body Temperature 99.6 F 05/04/2018 12:53pm Weight 130.38 lb per pt Heart Rate 70 /min BP Systolic 120 mmHg BP Diastolic 72 mmHg Body Temperature 97.7 F O2 % BldC Oximetry 99 % 02/21/2018 1:46pm Weight 135.00 lb Heart Rate 58 /min BP Systolic Sitting 132 mmHg BP Diastolic Sitting 60 mmHg Body Temperature 98.1 F O2 % BldC Oximetry 95 % 07/02/2017 10:06am Height 63 inches 5'3" Weight 140.00 lb Heart Rate 64 /min BP Systolic Sitting 138 mmHg BP Diastolic Sitting 84 mmHg Respiratory Rate 14 /min BMI (Body Mass Index) 24.8 kg/m2 02/23/2017 10:18am Weight 120.00 lb Heart Rate 61 /min BP Systolic Sitting 134 mmHg BP Diastolic Sitting 86 mmHg Body Temperature 97.7 F O2 % BldC Oximetry 91 % 11/24/2016 11:35am Weight 139.00 lb with shoes Heart Rate 83 /min BP Systolic Sitting 138 mmHg BP Diastolic Sitting 92 mmHg O2 % BldC Oximetry 98 % 05/14/2016 3:02pm Height 63 inches 5'3" Weight 137.00 lb Heart Rate 76 /min BP Systolic Sitting 134 mmHg BP Diastolic Sitting 74 mmHg Respiratory Rate 14 /min BMI (Body Mass Index) 24.3 kg/m2 04/20/2016 1:59pm Height 63 inches 5'3" Weight 135.00 lb Heart Rate 60 /min BP Systolic Sitting 112 mmHg BP Diastolic Sitting 68 mmHg Respiratory Rate 16 /min BMI (Body Mass Index) 23.9 kg/m2 01/23/2016 11:13am Height 63 inches 5'3" Weight 135.00 lb Heart Rate 61 /min BP Systolic Sitting 118 mmHg BP Diastolic Sitting 80 mmHg O2 % BldC Oximetry 96 % BMI (Body Mass Index) 23.9 kg/m2 08/15/2015 10:50am Height 63 inches 5'3" Weight 136.25 lb Heart Rate 60 /min BP Systolic Sitting 132 mmHg BP Diastolic Sitting 80 mmHg Body Temperature 97.6 F O2 % BldC Oximetry 98 % BMI (Body Mass Index) 24.1 kg/m2 05/13/2015 11:25am Height 63 inches 5'3" Weight 139.00 lb Heart Rate 64 /min BP Systolic Sitting 130 mmHg BP Diastolic Sitting 84 mmHg Respiratory Rate 16 /min BMI (Body Mass Index) 24.6 kg/m2 02/14/2015 10:58am Weight 139.25 lb Heart Rate 77 /min BP Systolic Sitting 138 mmHg BP Diastolic Sitting 88 mmHg Body Temperature 97.4 F O2 % BldC Oximetry 96 % 08/16/2014 10:58am Height 63 inches 5'3" Weight 140.00 lb Heart Rate 84 /min BP Systolic Sitting 142 mmHg BP Diastolic Sitting 90 mmHg BMI (Body Mass Index) 24.8 kg/m2 05/14/2014 11:30am Height 63 inches 5'3" Weight 141.00 lb Heart Rate 76 /min BP Systolic Sitting 140 mmHg BP Diastolic Sitting 80 mmHg Respiratory Rate 16 /min BMI (Body Mass Index) 25.0 kg/m2 12/07/2013 1:04pm Heart Rate 66 /min BP Systolic Sitting 120 mmHg BP Diastolic Sitting 70 mmHg Respiratory Rate 16 /min 09/29/2013 11:14am Weight 137.00 lb Heart Rate 71 /min BP Systolic Sitting 144 mmHg BP Diastolic Sitting 80 mmHg 09/25/2013 10:11am Heart Rate 76 /min BP Systolic Sitting 124 mmHg BP Diastolic Sitting 82 mmHg Respiratory Rate 18 /min 05/16/2013 11:23am Weight 134.00 lb Heart Rate 72 /min BP Systolic Sitting 168 mmHg BP Diastolic Sitting 83 mmHg 04/20/2013 3:40pm Weight 136.00 lb Heart Rate 79 /min BP Systolic Sitting 161 mmHg BP Diastolic Sitting 92 mmHg 03/28/2013 10:59am Weight 136.00 lb Heart Rate 60 /min BP Systolic Sitting 160 mmHg BP Diastolic Sitting 94 mmHg 03/14/2013 11:04am Weight 137.00 lb Heart Rate 64 /min BP Systolic Sitting 170 mmHg BP Diastolic Sitting 86 mmHg 02/23/2013 9:18am Weight 139.25 lb Heart Rate 51 /min BP Systolic Sitting 158 mmHg BP Diastolic Sitting 71 mmHg 02/09/2013 1:30pm Height 61.5 inches 5'1.50" Weight 137.25 lb Heart Rate 63 /min BP Systolic 189 mmHg BP Diastolic 93 mmHg BP Systolic Sitting 161 mmHg BP Diastolic Sitting 84 mmHg BMI (Body Mass Index) 25.5 kg/m2 Results Test Date Facility Test Result H/L Range Note Lipid Panel 04/18/2019 [facility] Triglycerides 48 mg/dL 1 , [address] [place] [address] [phone] Cholesterol 144 mg/dL 3 HDL Cholesterol 77.0 mg/dL 4 LDL Cholesterol 57 mg/dL 5 BMP Basic Metabolic 04/18/2019 [facility] Sodium 133 mmol/L Low 135-145 Panel (8) [address] [place] [address] [phone] Chloride 97 mmol/L Low 101-111 Co2 Carbon Dioxide 31 mmol/L N 22-32 Glucose 89 mg/dL N 70-100 Blood Urea Nitrogen 16 mg/dL N 6-24 Creatinine 0.78 mg/dL N 0.51-0.95 BUN/Creatinine Ratio 20.5 High 8-20 Calcium 10.0 mg/dL N 8.6-10.3 Egfr Non- 70.2 >60 Egfr 84.9 >60 6 Potassium 5.1 mmol/L High 3.5-5.0 Anion Gap 5 mmol/L N 2-11 Laboratory test 04/18/2019 [facility] TSH (Thyroid 1.76 N 0.34 -5.60 [address] Stim Horm) mcIU/[place] [address] [phone] Laboratory test 10/08/2018 [facility] Lactic Acid 1.1 mmol/L N 0.5-2.0 8 finding [address] [place] [address] [phone] Laboratory test 10/08/2018 [facility] Lactic Acid 1.4 mmol/L N 0.5-2.0 9 finding [address] [place] [address] [phone] Comp Metabolic 10/08/2018 [facility] Sodium 133 mmol/L Low 135 -145 Panel [address] [place] [address] [phone] Potassium 3.6 mmol/L N 3.5-5.0 Chloride 95 mmol/L Low 101-111 Co2 Carbon Dioxide 31 mmol/L N 22-32 Anion Gap 7 mmol/L N 2-11 Glucose 155 mg/dL High 70-100 Blood Urea Nitrogen 17 mg/dL N 6-24 Creatinine 0.83 mg/dL N 0.51-0.95 BUN/Creatinine Ratio 20.5 High 8-20 Calcium 10.6 mg/dL High 8.6-10.3 Total Protein 8.5 g/dL N 6.4-8.9 Albumin 4.6 g/dL N 3.2-5.2 Globulin 3.9 g/dL N 2-4 Albumin/Globulin Ratio 1.2 N 1-3 Total Bilirubin 0.80 mg/dL N 0.2-1.0 Alkaline Phosphatase 55 U/L N 34-104 Alt 18 U/L N 7-52 Ast 27 U/L N 13-39 Egfr Non- 65.5 >60 Egfr 79.2 >60 10 Laboratory test 10/08/2018 [facility] Lipase 107 U/L High 11.0 -82.[address] [place] [address] [phone] C Reactive Protein 1.70 mg/L N <8.01 Troponin-I (TnI) 0.00 ng/mL <0.04 11 CBC Auto 10/08/2018 [facility] White Blood 17.9 10^3/uL High 3.5-10.[address] [place] [address] [phone] Red Blood Count 5.23 10^6/uL N 4.00-5.40 Hemoglobin 15.2 g/dL N 12.0-16.0 Hematocrit 46 % N 35-47 Mean Corpuscular Volume 87 fL N 80-97 Mean Corpuscular Hemoglobin 29 pg N 27-31 Mean Corpuscular HGB Conc 33 g/dL N 31-36 Red Cell Distribution Width 14 % N 10.5-15 Platelet Count 494 10^3/uL High 150-450 Mean Platelet Volume 8.0 fL N 7.4-10.4 Abs Neutrophils 16.3 10^3/uL High 1.5-7.7 Abs Lymphocytes 0.6 10^3/uL Low 1.0-4.8 Abs Monocytes 0.8 10^3/uL N 0-0.8 Abs Eosinophils 0.3 10^3/uL N 0-0.6 Abs Basophils 0 10^3/uL N 0-0.2 Abs Nucleated RBC 0 10^3/uL Granulocyte % 90.6 % High 38-83 Lymphocyte % 3.1 % Low 25-47 Monocyte % 4.4 % N 0-7 Eosinophil % 1.8 % N 0-6 Basophil % 0.1 % N 0-2 Nucleated Red Blood Cells % 0.1 Inr/Protime 10/08/2018 [facility] Inr 0.89 N 0.77-1.[address] [place] [address] [phone] CBC Auto Diff 05/05/2018 [facility] White Blood 5.4 10^3/uL N 3.5-10.[address] [place] [address] [phone] Red Blood Count 4.50 10^6/uL N 4.00-5.40 Hemoglobin 13.4 g/dL N 12.0-16.0 Hematocrit 40 % N 35-47 Mean Corpuscular Volume 88 fL N 80-97 Mean Corpuscular Hemoglobin 30 pg N 27-31 Mean Corpuscular HGB Conc 34 g/dL N 31-36 Red Cell Distribution Width 14 % N 10.5-15 Platelet Count 427 10^3/uL N 150-450 Mean Platelet Volume 8.4 um3 N 7.4-10.4 Abs Neutrophils 3.2 10^3/uL N 1.5-7.7 Abs Lymphocytes 0.9 10^3/uL Low 1.0-4.8 Abs Monocytes 0.7 10^3/uL N 0-0.8 Abs Eosinophils 0.6 10^3/uL N 0-0.6 Abs Basophils 0 10^3/uL N 0-0.2 Abs Nucleated RBC 0 10^3/uL Granulocyte % 58.8 % N 38-83 Lymphocyte % 15.9 % Low 25-47 Monocyte % 13.9 % High 0-7 Eosinophil % 10.8 % High 0-6 Basophil % 0.6 % N 0-2 Nucleated Red Blood Cells % 0.3 Basic Metabolic Panel 05/05/2018 [facility] Sodium 136 mmol/L N 135-[address] [place] [address] [phone] Potassium 4.3 mmol/L N 3.5-5.0 Chloride 101 mmol/L N 101-111 Co2 Carbon Dioxide 31 mmol/L N 22-32 Anion Gap 4 mmol/L N 2-11 Glucose 90 mg/dL N 70-100 Blood Urea Nitrogen 16 mg/dL N 6-24 Creatinine 0.86 mg/dL N 0.51-0.95 BUN/Creatinine Ratio 18.6 N 8-20 Calcium 9.8 mg/dL N 8.6-10.3 Egfr Non- 62.9 >60 Egfr 76.1 >60 13 CBC Auto 03/14/2018 [facility] White Blood 12.4 10^3/uL High 3.5-10.[address] [place] [address] [phone] Red Blood Count 5.07 10^6/uL N 4.0-5.4 Hemoglobin 15.0 g/dL N 12.0-16.0 Hematocrit 44 % N 35-47 Mean Corpuscular Volume 86 fL N 80-97 Mean Corpuscular Hemoglobin 30 pg N 27-31 Mean Corpuscular HGB Conc 34 g/dL N 31-36 Red Cell Distribution Width 13 % N 10.5-15 Platelet Count 502 10^3/uL High 150-450 Mean Platelet Volume 8.8 um3 N 7.4-10.4 Large Platelets Present Abs Neutrophils 11.4 10^3/uL High 1.5-7.7 Abs Lymphocytes 0.4 10^3/uL Low 1.0-4.8 Abs Monocytes 0.5 10^3/uL N 0-0.8 Abs Eosinophils 0.1 10^3/uL N 0-0.6 Abs Basophils 0 10^3/uL N 0-0.2 Abs Nucleated RBC 0 10^3/uL Granulocyte % 91.9 % High 38-83 Lymphocyte % 3.5 % Low 25-47 Monocyte % 3.7 % N 0-7 Eosinophil % 0.8 % N 0-6 Basophil % 0.1 % N 0-2 Nucleated Red Blood Cells % 0.1 Laboratory test 03/14/2018 [facility] Lactic Acid 1.3 mmol/L N 0.5-2.0 [address] [place] [address] [phone] BMP Basic 12/02/2017 [facility] Sodium 133 mmol/L N 133-145 15 Metabolic Panel [address] (8) [place] [address] [phone] Potassium 3.8 mmol/L N 3.5-5.0 Chloride 97 mmol/L Low 101-111 Co2 Carbon Dioxide 30 mmol/L N 22-32 Anion Gap 6 mmol/L N 2-11 Glucose 101 mg/dL High 70-100 Blood Urea Nitrogen 15 mg/dL N 6-24 Creatinine 0.74 mg/dL N 0.51-0.95 BUN/Creatinine Ratio 20.3 High 8-20 Calcium 10.3 mg/dL N 8.6-10.3 Egfr Non- 74.8 >60 Egfr 96.2 >60 16 Laboratory test 12/02/2017 [facility] TSH (Thyroid 0.77 mcIU/mL N 0.34-5.[address] Stim Horm) [place] [address] [phone] CBC W/Auto Diff 12/02/2017 [facility] White Blood 6.3 10^3/uL N 3.5-10.[address] [place] [address] [phone] Red Blood Count 4.41 10^6/uL N 4.0-5.4 Hemoglobin 13.2 g/dL N 12.0-16.0 Hematocrit 39 % N 35-47 Mean Corpuscular Volume 88 fL N 80-97 Mean Corpuscular Hemoglobin 30 pg N 27-31 Mean Corpuscular HGB Conc 34 g/dL N 31-36 Red Cell Distribution Width 15 % N 10.5-15 Platelet Count 518 10^3/uL High 150-450 Mean Platelet Volume 9 um3 N 7.4-10.4 Abs Neutrophils 4.1 10^3/uL N 1.5-7.7 Abs Lymphocytes 1.0 10^3/uL N 1.0-4.8 Abs Monocytes 0.7 10^3/uL N 0-0.8 Abs Eosinophils 0.4 10^3/uL N 0-0.6 Abs Basophils 0 10^3/uL N 0-0.2 Abs Nucleated RBC 0 10^3/uL Granulocyte % 65.9 % N 38-83 Lymphocyte % 16.6 % Low 25-47 Monocyte % 11.2 % High 1-9 Eosinophil % 5.9 % N 0-6 Basophil % 0.4 % N 0-2 Nucleated Red Blood Cells % 0.1 CBC Auto Diff 02/15/2017 [facility] White Blood 9.9 10^3/uL N 3.5-10.[address] [place] [address] [phone] Red Blood Count 4.76 10^6/uL N 4.0-5.4 Hemoglobin 13.6 g/dL N 12.0-16.0 Hematocrit 41 % N 35-47 Mean Corpuscular Volume 85 fL N 80-97 Mean Corpuscular Hemoglobin 29 pg N 27-31 Mean Corpuscular HGB Conc 34 g/dL N 31-36 Red Cell Distribution Width 14 % N 10.5-15 Platelet Count 469 10^3/uL High 150-450 Mean Platelet Volume 8 um3 N 7.4-10.4 Abs Neutrophils 7.5 10^3/uL N 1.5-7.7 Abs Lymphocytes 0.9 10^3/uL Low 1.0-4.8 Abs Monocytes 1.0 10^3/uL High 0-0.8 Abs Eosinophils 0.5 10^3/uL N 0-0.6 Abs Basophils 0.1 10^3/uL N 0-0.2 Abs Nucleated RBC 0.01 10^3/uL N Granulocyte % 75.5 % N 38-83 Lymphocyte % 8.8 % Low 25-47 Monocyte % 9.9 % High 1-9 Eosinophil % 5.3 % N 0-6 Basophil % 0.5 % N 0-2 Nucleated Red Blood Cells % 0.1 N Laboratory test 02/15/2017 [facility] Lactic Acid 0.6 mmol/L N 0.5-2.0 [address] [place] [address] [phone] Comp Metabolic 02/15/2017 [facility] Sodium 130 mmol/L Low 133 -[address] [place] [address] [phone] Potassium 4.5 mmol/L N 3.5-5.0 Chloride 94 mmol/L Low 101-111 Co2 Carbon Dioxide 32 mmol/L N 22-32 Anion Gap 4 mmol/L N 2-11 Glucose 102 mg/dL High 70-100 Blood Urea Nitrogen 11 mg/dL N 6-24 Creatinine 0.68 mg/dL N 0.51-0.95 BUN/Creatinine Ratio 16.2 N 8-20 Calcium 9.7 mg/dL N 8.6-10.3 Total Protein 7.5 g/dL N 6.4-8.9 Albumin 4.1 g/dL N 3.2-5.2 Globulin 3.4 g/dL N 2-4 Albumin/Globulin Ratio 1.2 N 1-3 Total Bilirubin 1.00 mg/dL N 0.2-1.0 Alkaline Phosphatase 50 U/L N 34-104 Alt 13 U/L N 7-52 Ast 24 U/L N 13-39 Egfr Non- 82.6 N >60 Egfr 106.3 N >60 18 Laboratory test 02/15/2017 [facility] C Reactive 53.34 mg/L High < 5.00 [address] [place] [address] [phone] Basic Metabolic 12/03/2016 [facility] Sodium 134 mmol/L N 133- [address] [place] [address] [phone] Potassium 4.1 mmol/L N 3.5-5.0 Chloride 98 mmol/L Low 101-111 Co2 Carbon Dioxide 32 mmol/L N 22-32 Anion Gap 4 mmol/L N 2-11 Glucose 92 mg/dL N 70-100 Blood Urea Nitrogen 16 mg/dL N 6-24 Creatinine 0.85 mg/dL N 0.51-0.95 BUN/Creatinine Ratio 18.8 N 8-20 Calcium 9.7 mg/dL N 8.6-10.3 Egfr Non- 63.9 N >60 Egfr 82.1 N >60 20 Laboratory test 12/03/2016 [facility] TSH (Thyroid 1.20 mcIU/mL N 0.34-5.60 [address] Stim [place]orm) [place] [address] [phone] CBC Auto Diff 12/03/2016 [facility] White Blood 7.6 10^3/uL N 3.5-10.[address] [place] [address] [phone] Red Blood Count 4.10 10^6/uL N 4.0-5.4 Hemoglobin 12.7 g/dL N 12.0-16.0 Hematocrit 37 % N 35-47 Mean Corpuscular Volume 90 fL N 80-97 Mean Corpuscular Hemoglobin 31 pg N 27-31 Mean Corpuscular HGB Conc 34 g/dL N 31-36 Red Cell Distribution Width 14 % N 10.5-15 Platelet Count 354 10^3/uL N 150-450 Mean Platelet Volume 9 um3 N 7.4-10.4 Abs Neutrophils 5.4 10^3/uL N 1.5-7.7 Abs Lymphocytes 0.8 10^3/uL Low 1.0-4.8 Abs Monocytes 0.7 10^3/uL N 0-0.8 Abs Eosinophils 0.6 10^3/uL N 0-0.6 Abs Basophils 0.1 10^3/uL N 0-0.2 Abs Nucleated RBC 0 10^3/uL N Granulocyte % 71.3 % N 38-83 Lymphocyte % 10.9 % Low 25-47 Monocyte % 9.1 % High 1-9 Eosinophil % 8.0 % High 0-6 Basophil % 0.7 % N 0-2 Nucleated Red Blood Cells % 0.1 N Laboratory test 01/16/2016 [facility] TSH (Thyroid 1.49 N 0.34 -5.60 22, [address] Stim Horm) ?IU/[place] [address] [phone] Free T4 (Free Thyroxine) 0.96 ng/dL N 0.61-1.12 24 Comp Metabolic Panel 01/16/2016 [facility] Sodium 135 mmol/L N 133-[address] [place] [address] [phone] Potassium 4.3 mmol/L N 3.5-5.0 Chloride 98 mmol/L Low 101-111 Co2 Carbon Dioxide 32 mmol/L N 22-32 Anion Gap 5 mmol/L N 2-11 Glucose 99 mg/dL N 70-100 Blood Urea Nitrogen 18 mg/dL N 6-24 Creatinine 0.81 mg/dL N 0.51-0.95 BUN/Creatinine Ratio 22.2 High 8-20 Calcium 9.8 mg/dL N 8.6-10.3 Total Protein 7.6 g/dL N 6.4-8.9 Albumin 4.2 g/dL N 3.2-5.2 Globulin 3.4 g/dL N 2-4 Albumin/Globulin Ratio 1.2 N 1-3 Total Bilirubin 0.80 mg/dL N 0.2-1.0 Alkaline Phosphatase 53 U/L N 34-104 Alt 15 U/L N 7-52 Ast 27 U/L N 13-39 Egfr Non- 67.7 N >60 Egfr 87.1 N >60 25 Lipid Profile 01/16/2016 [facility] Triglycerides 42 mg/dL N 26 (Trig/Chol/HDL) [address] [place] [address] [phone] Cholesterol 141 mg/dL N 27 HDL Cholesterol 80.1 mg/dL N 28 LDL Cholesterol 53 mg/dL N 29 CBC Auto Diff 02/07/2015 [facility] White Blood 5.9 10^3/uL N 4.8-10.[address] [place] [address] [phone] Red Blood Count 4.53 10^6/uL N 4.0-5.4 Hemoglobin 13.9 g/dL N 12.0-16.0 Hematocrit 41 % N 35-47 Mean Corpuscular Volume 91 fL N 80-97 Mean Corpuscular Hemoglobin 31 pg N 27-31 Mean Corpuscular HGB Conc 34 g/dL N 31-36 Red Cell Distribution Width 14 % N 10.5-15 Platelet Count (SEE NOTE) 10^3/uL N 150-450 30 Mean Platelet Volume (SEE NOTE) um3 N 7.4-10.4 31 Abs Neutrophils 3.5 10^3/uL N 1.5-7.7 Abs Lymphocytes 0.9 10^3/uL Low 1.0-4.8 Abs Monocytes 0.7 10^3/uL N 0-0.8 Abs Eosinophils 0.8 10^3/uL High 0-0.6 Abs Basophils 0 10^3/uL N 0-0.2 Abs Nucleated RBC 0.01 10^3/uL N Granulocyte % 59.9 % N 38-83 Lymphocyte % 15.4 % Low 25-47 Monocyte % 11.1 % High 1-9 Eosinophil % 13.0 % High 0-6 Basophil % 0.6 % N 0-2 Nucleated Red Blood Cells % 0.2 N Lipid Profile 02/07/2015 [facility] Triglycerides 36 mg/dL N 32 (Trig/Chol/HDL) [address] [place], [place] [id number] [phone] Cholesterol 137 mg/dL N 33 HDL Cholesterol 79.5 mg/dL N 34 LDL Cholesterol 50 mg/dL N 35 Laboratory test 02/07/2015 [facility] TSH (Thyroid 1.41 N 0.34 -5.[address] Stimulating IU/[place] [address] Horm) [phone] Free T4 0.92 ng/mL N 0.61-1.12 37 Comp Metabolic Panel 02/07/2015 [facility] Sodium 135 mmol/L N 133-[address] [place] [address] [phone] Potassium 4.1 mmol/L N 3.5-5.0 Chloride 99 mmol/L Low 101-111 Co2 Carbon Dioxide 32 mmol/L N 22-32 Anion Gap 4 mmol/L N 2-11 Glucose 98 mg/dL N 70-100 Blood Urea Nitrogen 17 mg/dL N 6-24 Creatinine 0.84 mg/dL N 0.51-0.95 BUN/Creatinine Ratio 20.2 High 8-20 Calcium 9.8 mg/dL N 8.6-10.3 Total Protein 7.7 g/dL N 6.4-8.9 Albumin 4.2 g/dL N 3.2-5.2 Globulin 3.5 g/dL N 2-4 Albumin/Globulin Ratio 1.2 N 1-3 Total Bilirubin 0.80 mg/dL N 0.2-1.0 Alkaline Phosphatase 49 U/L N 34-104 Alt 15 U/L N 7-52 Ast 25 U/L N 13-39 Egfr Non- 65.1 N >60 Egfr 83.7 N >60 38 Laboratory test 08/16/2014 [facility] TSH (Thyroid 0.98 IU/mL N 0.34-5.[address] [place] [address] Horm) [phone] Free T4 0.90 ng/mL N 0.61-1.12 Comp Metabolic Panel 08/16/2014 [facility] Sodium 131 mmol/L Low 133-[address] [place] [address] [phone] Potassium 5.0 mmol/L N 3.7-5.6 Chloride 95 mmol/L Low 101-111 Co2 Carbon Dioxide 32 mmol/L N 22-32 Anion Gap 4 mmol/L N 2-11 Glucose 71 mg/dL N 70-100 Blood Urea Nitrogen 13 mg/dL N 6-24 Creatinine 0.77 mg/dL N 0.51-0.95 BUN/Creatinine Ratio 16.9 N 8-20 Calcium 10.1 mg/dL N 8.6-10.3 Total Protein 8.3 g/dL N 6.4-8.9 Albumin 4.4 g/dL N 3.2-5.2 Globulin 3.9 g/dL N 2-4 Albumin/Globulin Ratio 1.1 N 1-3 Total Bilirubin 0.60 mg/dL N 0.2-1.0 Alkaline Phosphatase 45 U/L N 34-104 Alt 15 U/L N 7-52 Ast 26 U/L N 13-39 Egfr Non- 72.1 N >60 Egfr 92.8 N >60 39 Laboratory test 01/05/2014 [facility] Vitamin B12 1085 pg/mL High 180-914 40 finding [address] [place] [address] [phone] Folate 12.93 ng/mL >3.99 Free T4 0.87 ng/mL 0.61-1.12 TSH (Thyroid Stimulating Horm) 1.44 IU/mL 0.34-5.60 Protein 01/05/2014 [facility] Total 8.1 Abnormal 6.3 - Electrophoresis 101 [facility] Protein(Pep) g/dL 7.9 [place] [address] [phone] Albumin 3.7 g/dL 3.4-4.7 Alpha-1 Globulin 0.3 g/dL 0.1-0.3 Alpha-2 Globulin 1.0 g/dL 0.6-1.0 Beta Globulin 0.7 g/dL 0.7-1.2 Gamma Globulin 2.4 g/dL Abnormal 0.6-1.6 Albumin/Globulin Ratio 0.84 Impression See Comment 41 Basic Metabolic Panel 09/29/2013 [facility] Sodium 133 mmol/L 133-145 [address] [place] [address] [phone] Potassium 5.1 mmol/L High 3.5-5.0 Chloride 97 mmol/L Low 101-111 Co2 Carbon Dioxide 32.0 mmol/L 22-32 Anion Gap 4.0 mmol/L 2-11 Glucose 75 mg/dL 70-100 Blood Urea Nitrogen 12 mg/dL 6-24 Creatinine 0.80 mg/dL 0.50-1.40 BUN/Creatinine Ratio 15.0 8-20 Calcium 9.9 mg/dL 8.1-9.9 Egfr Non- 69.2 >60 Egfr 89.0 >60 42 CBC Auto Diff 05/16/2013 [facility] White Blood 8.7 10^3/uL 4.8-10.[address] [place] [address] [phone] Red Blood Count 4.46 10^6/uL 4.0-5.4 Hemoglobin [...] Red Blood Cells % 0 Lipid Profile 04/26/2013 [facility] Triglycerides 33 mg/dL Low 40-200 (Trig/Chol/HDL) [address] [place] [address] [phone] Cholesterol 138 mg/dL Less than 200 HDL Cholesterol 81 mg/dL High 40-60 43 Cholesterol/HDL Ratio 1.7 Average 1-4.44 LDL Cholesterol 50.4 Less Than 100 44 Comp Metabolic Panel 04/26/2013 [facility] Sodium 130 mmol/L Low 133-145 [address] [place] [address] [phone] Potassium 4.4 mmol/L 3.5-5.0 Chloride 96 mmol/L [...] Egfr Non- 80.7 >60 Egfr 103.8 >60 45 CBC No Diff 04/17/2013 [facility] White Blood 8.3 10^3/uL 4.8 -10.[address] [place] [address] [phone] Red Blood Count 4.55 10^6/uL 4.0-5.4 Hemoglobin 14.0 g/dL 12.0-16.0 Hematocrit 41 % 35-47 Mean Corpuscular Volume 90 fL 80-97 Mean Corpuscular Hemoglobin 31 pg 27-31 Mean Corpuscular HGB Conc 34 g/dL 31-36 Red Cell Distribution Width 13 % 10.5-15 Laboratory test 04/17/2013 [facility] Magnesium 2.0 mg/dL 1.7 -2.6 finding [address] [place] [address] [phone] TSH (Thyroid Stimulating Horm) 1.12 miu/mL 0.34-5.60 Basic Metabolic 04/17/2013 [facility] Sodium 128 mmol/L Low 133-145 Panel [address] [place] [address] [phone] Potassium 4.2 mmol/L 3.5-5.0 Chloride 93 mmol/L Low 101-111 Co2 Carbon Dioxide 28.0 mmol/L 22-32 Anion Gap 7.0 mmol/L 2-11 Glucose 96 mg/dL 70-100 Blood Urea Nitrogen 11 mg/dL 6-24 Creatinine 0.80 mg/dL 0.50-1.40 BUN/Creatinine Ratio 13.8 8-20 Calcium 9.5 mg/dL 8.1-9.9 Egfr Non- 69.2 >60 Egfr 89.0 >60 46 Laboratory test 03/14/2013 [facility] Rheumatoid Factor <15 IU/ mL <15 47 finding [address] [place] [address] [phone] Cyclic Citrullinated Pept IgG <15.6 U 48 1 [place] [id number] Desirable: <150 Borderline High: 150-199 High: 200-499 Very High: >500 3 Desirable: <200 Borderline High: 200-239 High: >239 4 Low: <40 Desirable: 40-60 High: >60 5 Desirable: <100 Near Optimal: 100-129 Borderline High: 130-159 High: 160-189 Very High: >189 6 Because ethnic data is not always [...] 5 Kidney failure <15 (or dialysis) 7 [id number] 8 [facility] Severe Sepsis and Septic Shock Management Bundle Measure requires all lactic acids initially measuring >2.0 mmol/L be repeated. 9 [facility] Severe Sepsis and Septic Shock Management Bundle Measure requires all lactic acids initially measuring >2.0 mmol/L be repeated. 10 Because ethnic data is not always readily [...] 15-29 5 Kidney failure <15 (or dialysis) 11 Troponin-I testing on Plasma Separator Tubes (PST) has a known false positive rate of 0.20-0.40%. All positive troponins reflex immediate secondary confirmatory testing. 12 [id number] 13 Because ethnic data is not always readily [...] 15-29 5 Kidney failure <15 (or dialysis) 14 [facility] Severe Sepsis and Septic Shock Management Bundle Measure requires all lactic acids initially measuring >2.0 mmol/L be repeated. 15 Giant Platelets 16 Because ethnic data is not always [...] 5 Kidney failure <15 (or dialysis) 17 [facility] Severe Sepsis and Septic Shock Management Bundle Measure requires all lactic acids initially measuring >2.0 mmol/L be repeated. 18 Because ethnic data is not always readily [...] 15-29 5 Kidney failure <15 (or dialysis) 19 Acute inflammation: >10.00 20 Because ethnic data is not always readily [...] 15-29 5 Kidney failure <15 (or dialysis) 21 FASTING 10 HOUR 22 PT IS FASTING 23 PT IS FASTING 24 PT IS FASTING 25 Because ethnic data is not always [...] 5 Kidney failure <15 (or dialysis) 26 Desirable <150 Borderline high 150-199 High 200-499 Very High >500 27 Desirable <200 Borderline high 200-239 High >239 28 Low <40 Desirable: 40-60 High: >60 29 Desirable: <100 mg/dL Near Optimal: 100-129 mg/dL Borderline High: 130-159 mg/dL High: 160-189 mg/dL Very High: >189 mg/dL 30 Verbal to by [id number] at 1220 on 02/07/15. Results read back accurately. Platelets clumped. Unable to perform accurate count. Verbal to answering service at 1119 on 02/07/15 by [id number]. Doctor to return call. 31 Platelets clumped. Unable to perform accurate count. 32 Desirable <150 Borderline high 150-199 High 200-499 Very High >500 33 Desirable <200 Borderline high 200-239 High >239 34 Low <40 Desirable: 40-60 High: >60 35 Desirable: <100 mg/dL Near Optimal: 100-129 mg/dL Borderline High: 130-159 mg/dL High: 160-189 mg/dL Very High: >189 mg/dL 36 PT IS FASTING 37 PT IS FASTING 38 Because ethnic data is not always readily [...] 15-29 5 Kidney failure <15 (or dialysis) 39 Because ethnic data is not always readily [...] 15-29 5 Kidney failure <15 (or dialysis) 40 Normal Range 180 to 914 Indeterminate Range 145 to 180 Deficient Range <145 41 RESULT: Polyclonal hypergammaglobulinemia Test Performed by: [facility] [place] [address] Sql Database Administrator: Vasquez Arango III, M.D. 42 Because ethnic data is not always readily [...] 15-29 5 Kidney failure <15 (or dialysis) 43 HDL Interpretation: Undesirable: High Risk: Less than 40 mg/dL Desirable: Low Risk: Greater than 60 mg/dL 44 LDL Interpretation: Low Risk Optimal Level: LDL Less than 100 mg/dL Near or Above Optimal: LDL 100-129 mg/dL Borderline High Risk: LDL 130-159 mg/dL High Risk: LDL 160-189 mg/dL Very High Risk: LDL Greater than 189 mg/dL 45 Because ethnic data is not always readily [...] 15-29 5 Kidney failure <15 (or dialysis) 46 Because ethnic data is not always readily [...] 15-29 5 Kidney failure <15 (or dialysis) 47 Test Performed by: [address] [address] Sql Database Administrator: Vasquez Arango III, M.D. 48 -- REFERENCE VALUE -- <20.0 (Negative) Test Performed by: [address] [address] Sql Database Administrator: Vasquez Arango III, M.D. Procedures Date Code Description Status 10/10/2018 45761 Repair Hernia Femoral Initial, Incarcerated Or Completed Strangulated 10/10/2018 89931 Repair Hernia Femoral Initial, Incarcerated Or Completed Strangulated 05/25/2018 79565 Repair Hernia Inguinal > 5Yrs, Reducible Completed 05/04/2018 41973 EKG Tracing & Interpretation Completed 11/24/2016 29665 EKG Tracing & Interpretation Completed 05/14/2016 41765 Nerve Conduction 03-04 Studies Completed 05/14/2016 18139 Needle Electromyography Each Extremity W/Related Completed Paraspinal Areas 11/15/2015 117411400 Diabetic Retinal Eye Exam Completed 09/19/2015 31298158 Mammogram Completed 08/23/2014 38859443 Mammogram Completed 12/07/2013 42550 Needle Electromyography Each Extremity W/Related Completed Paraspinal Areas 12/07/2013 23339 Needle Electromyography Each Extremity W/Related Completed Paraspinal Areas 12/07/2013 37763 Nerve Conduction 03-04 Studies Completed 05/11/2013 03567 ECHO Transthoracic, Real-Time 2D With Doppler And Completed Color Flow 04/24/2013 97185 Stress Test Completed 04/24/2013 24155 Myocardial Perfusion Imaging Tomographic (Spect) Completed Multiple Studies 04/14/2013 63353 EKG Tracing & Interpretation Completed 03/23/2013 74175 Holter Monitor Review (24 hr)dr christian & interp only Completed 02/14/2013 417083790 Bone Mineral Density Test Completed 02/14/2013 61688550 Mammogram Completed 11/15/2006 86361350 Colonoscopy Completed Encounters Type Date Location Provider Dx Diagnosis Office Visit 10/09/2018 [facility] Baron Alfredo, K40.91 Unilateral 7:00a [facility], FACS inguinal hernia, w/o obst or gangrene, recurrent K56.609 Unsp intestnl obst, unsp as to partial versus complete obst Office Visit 10/08/2018 8:38a [place] Jackelyn Balderrama K40.31 [address] Assoc,[address]incess [address] M.D. inguinal hernia, Hospitalists w obst, w/o gangrene, recurrent I10 Essential (primary) hypertension E03.9 Hypothyroidism, unspecified Office Visit 10/08/2018 7:00a [facility] Baron Blair K41.30 Unil femoral [facility] MD Sayda, hernia, w obst, w/o Policy Change Clerk FACS gangrene, not spcf as recur Office Visit 05/04/2018 1:00p [facility] Jorge Howe, Z01.818 Encounter for other Medicine - [facility] TOOL CLERK preprocedural examination K40.90 Unil inguinal hernia, w/o obst or gangr, not spcf as recur I10 Essential (primary) hypertension Office Visit 03/14/2018 8:41a [facility] Rhae K56.609 Unsp intestnl Assoc,princess Frederick D.O. 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, unspecified D48.5 Neoplasm of uncertain behavior of skin I10 Essential (primary) hypertension Z11.1 Encounter for screening for respiratory tuberculosis Office Visit 07/02/2017 10:00a [place] [facility] Layne Figueredo 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 and [facility] Porter idiopathic neuropathy, unspecified Office Visit 02/23/2017 10:30a [facility] Internal Bijan Toussaint Z00.01 Encounter for Maria Antonia Mahmood general adult Charlotte,FACP medical exam w abnormal findings I10 Essential (primary) hypertension 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 and idiopathic neuropathy, unspecified E03.8 Other specified hypothyroidism I78.1 Nevus, non-neoplastic Z23 Encounter for immunization Office Visit 11/24/2016 [facility] Internal Bijan Toussaint Z01.810 Encounter for 11:30a Maria Antonia Mahmood M.D.,FACP [facility] H40.2210 Chronic angle-closure glaucoma, right eye, stage unspecified I10 Essential (primary) hypertension Office Visit 04/20/2016 1:45p [place] [facility] Layne Figueredo 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 [facility] idiopathic neuropathy, unspecified M21.371 Foot drop, right foot Office Visit 08/15/2015 10:40a [facility] Internal Kayla Marinelli, I10 Essential ( primary) [facility] hypertension E03.8 Other specified hypothyroidism 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 and idiopathic neuropathy, unspecified Z12.31 Encntr screen mammogram for malignant neoplasm of breast Z23 Encounter for immunization Office Visit 05/13/2015 11:30a [place] [facility] Layne Figueredo, 356.9 Neuropathy Services Of Policy Change Clerk Charlotte Peripheral Hereditary Idiopathic Unspec Office Visit 02/14/2015 10:40a [facility] Internal Kayla Marinelli, 401.9 Hypertension [facility] 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 V76.19 Screening Breast Exam Malignant Neoplasms Other 244.8 Hypothyroidism Other Spec Office Visit 05/14/2014 11:30a [place] [facility] Layne Figueredo, 356.9 Neuropathy [facility] Peripheral Hereditary Idiopathic Unspec 781.2 Gait Abnormality Office Visit 12/07/2013 1:00p [place] [facility] Layne Figueredo, 356.9 Neuropathy [facility] Peripheral Hereditary Idiopathic Unspec 781.2 Gait Abnormality Office Visit 09/29/2013 11:00a [facility] Internal Kayla Marinelli, 401.9 Hypertension Unspec Medicine - M.DTete Ccm[facility] 276.1 Hyposmolality & Or Hyponatremia 781.2 Gait Abnormality Office Visit 09/25/2013 10:00a [place] [facility] Layne Figueredo, 781.2 Gait Abnormality [facility] Porter V15.88 History Of Fall Office Visit 06/02/2013 11:45a [facility] Parveen Taveras 781.2 Gait Abnormality Of [facility] Tierney M.D., FACC, FASNC Office Visit 05/16/2013 11:00a [facility] Internal Kayla Marinelli 781.2 Gait Abnormality [facility] M.Norbert 401.9 Hypertension Unspec Office Visit 04/20/2013 3:40p [facility] Internal Kayla Marinelli 780.4 Dizziness & Medicine - [facility] M.Norbert Giddiness 427.0 PSVT Paroxysmal Supraventricular Tachycardia 401.1 Hypertension Benign 244.8 Hypothyroidism Other Spec 300.09 Anxiety States Other Office Visit 04/14/2013 12:15p [facility] Parveen Taveras 786.05 Shortness Of Of [facility] Tierney M.D., Breath FACC, FASNC 780.4 Dizziness & Giddiness 427.0 PSVT Paroxysmal Supraventricular Tachycardia Office Visit 03/28/2013 11:00a [facility] Internal Kayla Marinelli, 401.1 Hypertension Benign Medicine - M.D. Ccmob Office Visit 03/14/2013 11:20a [facility] Internal Kayla Marinelli, 842.09 Sprains & Strains Medicine - M.D. Wrist & Hand Other [facility] 401.1 Hypertension Benign Office Visit 02/23/2013 9:20a [facility] Internal Kayla Marinelli, 401.1 Hypertension Benign Medicine - M.D. [facility] 733.90 Bone & Cartilage Disorder Unspec Office Visit 02/09/2013 1:40p [facility] Internal Kayla Marinelli, 401.1 Hypertension Benign Medicine - M.D. [facility] 627.9 Menopausal & Postmenopausal Disorder Unspec 244.8 Hypothyroidism Other Spec 386.11 Vertigo Benign Paroxysmal Position 842.09 Sprains & Strains Wrist & Hand Other Plan of Treatment 04/26/2019 - RANULFO [place]00.00 Encounter for general adult medical examination without abnoComments:You are no longer due for colon or breast cancer screening. Your cholesterol profile and other labs were reviewed today and are excellent.Remember to wear sunscreen and see your dentist regularly.For optimum health, I recommend some form of regular exercise and integrating a lot of plant-based foods into your daily diet.We reviewed your advanced directives with the MOLST form cofoxM89.9 Peripheral vascular disease, unspecifiedComments: you will need an urgent examination in the hospital to check for blocked arteries. Please go straight to the emergency room today.I10 Essential (primary ) hypertensionComments:Your high blood pressure is in excellent control on your current management.E03.9 Hypothyroidism, unspecifiedComments:Your recent blood work showed your thyroid levels were in normal range. Continue with your current dose of medication.
--- OUTSIDE RECORDS SUMMARY | 2019-04-26 14:03 | XMS REPORT | Continuity of Care Document ---
:1935 External Reference #:[id number] Author Name Vikas Schwarz M.D. Address [address] [place] [address] [place] [address] Care Team Providers Name Role Phone Ela CASTELAN, Bijan Care Team Information Job Placement Counselor Unavailable Ela CASTELAN, Bijan Primary Care Physician Unavailable Payers Date Identification Numbers Payment Provider Subscriber Effective: 1998 Policy Number: [id number] Medicare [place] Marisa Sinclair PayID: [id number] [address] [place] [address] Policy Number: [id number] [employer] [facility] Marisa Sinclair PayID: [id number] [address] [place] [address] Problems Active Problems Provider Date Essential hypertension Onset: 11/23/2013 Open-angle glaucoma Hernandez Mcdonnell O.D. Onset: 11/23/2013 Acute conjunctivitis Hernandez Mcdonnell O.D. Onset: 10/22/2014 Scleritis Hernandez Mcdonnell O.D. Onset: 12/07/2014 Primary open-angle glaucoma, mild stage Hernandez Mcdonnell O.D. 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 Onset: 03/08 Tear film insufficiency Vikas Schwarz M.D. Onset: 01/13/2017 Bilateral primary open angle glaucoma Hernandez Mckinney, OD Onset: 10/07/2016 Bilateral primary open angle glaucoma Vikas Schwarz M.D. Onset: 08/26/2016 Primary open-angle glaucoma, severe stage Vikas Schwarz M.D. Onset: 2015 Primary open-angle glaucoma, moderate stage Vikas Schwarz M.D. Onset: 07/14 Presbyopia Hernandez Mcdonnell O.D. Onset: 01/27/2016 Family History Date Family Member(s) Observation Comments General Blindness uncle General Glaucoma aunt [...] is a former smoker Smoking Status Reviewed: 03/30/19 Patient is a former smoker Allergies, Adverse Reactions, Alerts Active Allergies Reaction Severity Comments Date NKDA 11/23/2013 Seasonal 11/23/2013 Medications Active Medications SIG Qnty Indications Ordering Date Provider Latanoprost 1 drops both 7.500ml Vikas Schwarz, 11/29/2017 0.005% Solution eyes every M.D. night Cosopt PF 1 drops both 180units H40.1133 Vikas Schwarz, 03/08/2017 22.3-6.8mg/ml eyes twice a M.D. Solution day Restasis 1 drops both 180units Vikas Schwarz, 07/11/2014 0.05% Emulsion eyes twice a M.D. day Prazosin HCL Unknown 2mg Capsules Atenolol Kayla Marinelli 50mg Tablets Chlorthalidone Kayla Marinelli 25mg Tablets Alprazolam Kayla Marinelli 0.25mg Tablets Prempro Kayla Marinelli 0.3-1.5mg Tablets Levothyroxine Sodium Kayla Marinelli 50mcg MD Tablets Amlodipine Besylate Kayla Marinelli 5mg MD Tablets Enalapril Maleate Kayla Marinelli 20mg MD Tablets History Medications Zioptan 1 drops both eyes 30units H40.1133 Vikas 03/08/2017 - 0.0015% every day Charlotte Schwarz 11/30/2017 Solution Timolol Maleate 1 drops both eyes 15units H40.1133 Vikas 02/12/2017 - twice a day Charlotte Schwarz 03/08/2017 0.5% Solution Latanoprost 1 drops both eyes 2.500ml H40.1133 Vikas 02/12/2017 - every night Charlotte Schwarz 03/08/2017 0.005% Solution Combigan 1 drop both eyes 10units H40.1133 Vikas 01/25/2017 - 0.2-0.5% twice a day Charlotte Schwarz 02/12/2017 Solution Latanoprost instill one drop in 2.5units Vikas 08/05/2016 - each eye at bedtime Charlotte Schwarz 02/12/2017 0.005% Solution Prednisolone 1 drop right eye six 10ml 379.00 Hernandez 12/07/2014 - Acetate times a day, israel Mcdonnell O.D. 01/24/2015 1% well Suspension Tobramycin-Dexamet 1 drop four times a 5ml 372.00 Hernandez 10/22/2014 - hasone day right eye for Mario Mcdonnell 12/07/2014 0.3-0.1% one week Suspension Afluria PF inject 0.5 Unknown - [id number] milliliter 09/21/2018 PF intramuscularly 13-14 Suspension Dorzolamide Unknown - HCL/Timolol 02/05/2014 Maleate 22.3-6.8mg/ml Solution Vital Signs Date Vital Result Comment 03/30/2019 11:29am Intraocular Pressure Right Eye 13 mmHg Intraocular Pressure Left Eye 16 mmHg 02/28/2019 3:34pm Intraocular Pressure Right Eye 11 mmHg Intraocular Pressure Left Eye 16 mmHg 09/21/2018 10:37am Intraocular Pressure Right Eye 13 [...] mmHg Intraocular Pressure Left Eye 22 mmHg Procedures Date Code Description Status 03/30/2019 35573 Eye Exam Est Intermediate Completed 02/28/2019 81819 Fundus Photography W/Interpretation & Report Completed 02/28/2019 10394 Eye Exam Est Comprehensive Completed 09/21/2018 04388 Visual Field Exam Extended, Unilateral Or Bilateral Completed 09/21/2018 14743 Eye Exam Est Intermediate Completed 05/16/2018 76058 Oct, Optic Nerve Completed 05/16/2018 85646 Eye Exam Est Intermediate Completed 01/27/2018 87098 Eye Exam Est Intermediate Completed 10/28/2017 78480 Eye Exam Est Intermediate Completed 10/28/2017 96138 Fundus Photography W/Interpretation & Report Completed 07/16/2017 90357 Visual Field Exam Extended, Unilateral Or Bilateral Completed 07/16/2017 97082 Eye Exam Est Intermediate Completed 04/16/2017 46589 External Photography W/Interpretation & Report Completed 04/16/2017 26483 Excision Lesion Eyelid Completed 08/10/2016 61804 Oct, Optic Nerve Completed 08/10/2016 85899 Eye Exam Est Intermediate Completed 07/14/2016 98028 Visual Field Exam Extended, Unilateral Or Bilateral Completed 07/14/2016 61367 Visual Field Exam Extended, Unilateral Or Bilateral Completed 01/27/2016 52979 Fundus Photography W/Interpretation & Report Completed 01/27/2016 82458 Refraction Completed 01/27/2016 92667 Eye Exam Est Comprehensive Completed 05/27/2015 26037 Oct, Optic Nerve Completed 05/27/2015 69941 Eye Exam Est Intermediate Completed 01/24/2015 39658 Visual Field Exam Extended, Unilateral Or Bilateral Completed 01/24/2015 99944 Eye Exam Est Intermediate Completed 12/26/2014 84425 Eye Exam Est Intermediate Completed 12/12/2014 68335 Eye Exam Est Intermediate Completed 12/07/2014 99504 Eye Exam Est Intermediate Completed 10/22/2014 59287 Eye Exam Est Intermediate Completed 07/27/2014 95691 Eye Exam Est Intermediate Completed 03/26/2014 36327 Eye Exam Est Intermediate Completed 11/23/2013 93328 Oct, Optic Nerve Completed 11/23/2013 53697 Visual Field Exam Extended, Unilateral Or Bilateral Completed 11/23/2013 66356 Eye Exam Est Intermediate Completed Encounters Type Date Location Provider Dx Diagnosis Office Visit 03/26/2017 Main Office Vikas Schwarz H40.1133 Primary open- angle 11:30a M.D. glaucoma, bilateral, severe stage Office Visit 03/08/2017 Main Office Vikas Schwarz H40.1133 Primary open- angle 11:15a M.D. glaucoma, bilateral, severe stage H04.123 Dry eye syndrome of bilateral lacrimal glands D23.12 Ot benign neoplasm skin/ left eyelid, including canthus Office Visit 02/12/2017 10:30a Main Office Vikas Schwarz H40.1133 Primary M.D. open-angle glaucoma, bilateral, severe stage Office Visit 01/25/2017 1:45p Main Office Peter Schwarz, H40.1133 Primary M.D. open-angle glaucoma, bilateral, severe stage H04.123 Dry eye syndrome of bilateral lacrimal glands Office Visit 01/13/2017 11:30a Main Office Vikas Schwarz, H40.1133 Primary M.D. [...] Office Visit 08/26/2016 11:15a Main Office Vikas Schwarz, H40.1133 Primary M.D. open-angle glaucoma, bilateral, severe stage Office Visit 09/27/2015 10:15a Main Office Hernandez Mcdonnell, H40.11x1 Primary O.D. open-angle glaucoma, mild stage H16.223 Keratoconjunct sicca, not specified as Sjogren's, bilateral Office Visit 10/25/2014 11:30a Main Office Hernandez Mcdonnell, 372.00 Conjunctivitis Acute O.D. Unspec Plan of Treatment 03/30/2019 - Vikas Schwarz M.D.H40.1133 Primary open-angle glaucoma, bilateral , severe stageFollow up:2 mos iop, OCTH16.143 Punctate keratitis, bilateralFollow up:2 mos OCT iop
--- NOTE | 2019-04-26 16:16 | PN ---
Progress Note - Progress Note Date of Service: 04/26/19 Note: Patient presents to PCP with 2 week h/o pain and violaceous discoloration of right index and small fingers. RUE duplex arterial ultrasound and PVR acquired and reviewed by me. RUE arteries are patent up to distal radial and ulnar arteries. No flow in right 2nd and 5th digits. 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 Recommendation: 1. Transfer to acute care facility where the patient can receive arteriography and slow catheter tpa infusion. 2. Nitropaste could be applied to affected fingers. 3. Calcium Channel Esteban therapy (E.g. Nifedipine 30 mg PO daily) could be considered to address Raynaud's Syndrome. This was discussed over the telephone with [facility] at 1600 hours.
--- NOTE | 2019-04-26 16:47 | ED ---
Upper Extremity Pain - HPI Summary HPI Summary: Patient presents to the ED right-handed distal tip of the index finger and little finger discoloration. She presents to the ED from PCP office. She states the little finger began with discoloration approximately 2 weeks ago and subsequently had the index finger occur approximately 1 week ago. The distal tip of the little finger no longer is in pain, however continues to be discolored. The index finger continues to be discolored and in pain. She denies history of such. PMHx includes hypertension and hypothyroidism. She takes amlodipine and Enalapril and levothyroxine. States she did not come to ED as she thought this would dissipate Denies any other symptoms including lower ext discoloration, numbness or tingling throughout upper or lower extremities, denies pain otherwise. Denies CARDOZA, CP, SOB. Continues to eat and drink OK. Denies blood thinners. - History of Current Complaint Chief Complaint: EDExtremityUpper Stated Complaint: POSS BLOOD CLOT PER PT Time Seen by Provider: 04/26/19 13:54 Hx Obtained From: Patient Hx Last Menstrual Period: post menopausal Mechanism Of Injury: Other - no known injury Onset/Duration: Started Weeks Ago - 2 weeks ago Timing: Constant Severity Initially: Severe Severity Currently: Severe Character: Aching Aggravating Factor(s): Nothing Alleviating Factor(s): Nothing Associated Signs & Symptoms: Positive: Bruising - discoloration Related History: Dominant Hand Right - Risk Factors Non-Orthopedic Risk Factor: Negative DVT Risk Factors: Negative Septic Arthritis Risk Factor: Negative Compartment Syndrome Risk Factors: Pain - Allergies/Home Medications Allergies/Adverse Reactions: Allergies Allergy/AdvReac Type Severity Reaction Status Date / Time NSAIDS (Non-Steroidal Allergy See Comment Verified 04/26/19 13:37 Anti-Inflamma Home Medications: Home Medications Latanoprost 0.005%* [Xalatan 0.005%*] 1 drop BOTH EYES QPM 04/26/19 [History Confirmed 04/26/19] Pyridoxine HCl (Vitamin B6) [Vitamin B-6] 100 mg PO DAILY 04/26/19 [History Confirmed 04/26/19] amLODIPine TAB* [Norvasc 5 mg TAB*] 5 mg PO DAILY 04/26/19 [History Confirmed ] PMH/Surg Hx/FS Hx/Imm Hx Previously Healthy: Yes Endocrine/Hematology History: Reports: Hx Blood Transfusions - in the past, Hx Thyroid Disease - UNDERACTIVE Denies: Hx Diabetes Cardiovascular History: Reports: Hx Hypertension - ON MEDICATION FOR Denies: Hx Pacemaker/ICD Respiratory History: Denies: Hx Asthma, Hx Chronic Obstructive Pulmonary Disease (COPD) GI History: Reports: Hx Diverticulosis, Hx Gall Bladder Disease - gall bladder removed, Other GI Disorders - Hernia repair Denies: Hx Ulcer Musculoskeletal History: Reports: Hx Arthritis - HANDS, Hx Rheumatoid Arthritis , Hx Back Problems - scoliosis, Hx Bursitis - BURSA UPPER LEFT LEG, Hx Tendonitis - HX OF Denies: Hx Osteoporosis Sensory History: Reports: Hx Cataracts, Hx Contacts or Glasses - glasses, Hx Glaucoma - BILATERAL-HAS A DRAIN TO THE RIGHT EYE PER PATIENT Denies: Hx Hearing Aid Opthamlomology History: Reports: Hx Cataracts, Hx Contacts or Glasses - glasses , Hx Glaucoma - BILATERAL-HAS A DRAIN TO THE RIGHT EYE PER PATIENT Neurological History: Reports: Other Neuro Impairments/Disorders - PERIPHERAL NEUROPATHY - Surgical History Surgery Procedure, Year, and Place: tonsils, deviated septum, carpal tunnel, rashard, cataracts-. SKIN CANCER REMOVED WITH GRAFTING TO [id number] Hx Anesthesia Reactions: No - Immunization History Hx Pertussis Vaccination: No Immunizations Up to Date: Yes Infectious Disease History: No Infectious Disease History: Denies: Hx Hepatitis, Hx Human Immunodeficiency Virus (HIV), Hx of Known/ Suspected MRSA, History Other Infectious Disease, Traveled Outside the [place] in Last 30 Days - Family History Known Family History: Positive: Hypertension Negative: Cardiac Disease, Diabetes, Renal Disease, Respiratory Disease, Blood Disorder - Social History Occupation: Unemployed Lives: With Family Alcohol Use: Weekly Alcohol Amount: 2/week Hx Substance Use: No Substance Use Type: Reports: None Hx Tobacco Use: Yes Smoking Status (MU): Former Smoker Amount Used/How Often: 5-6 CIGARETTES PER DAY X OFF AND ON 20 YEARS Have You Smoked in the Last Year: No Review of Systems Negative: Fever, Chills, Fatigue, Skin Diaphoresis Negative: Chest Pain Negative: Shortness Of Breath, Cough Genitourinary: Negative Positive: no symptoms reported, see HPI Negative: Arthralgia, Myalgia Positive: Bruising - discoloration of the distal tips of the R index and R little finger Neurological: Negative All Other Systems Reviewed And Are Negative: Yes Physical Exam Triage Information Reviewed: Yes Vital Signs On Initial Exam: Initial Vitals Temp Pulse Resp BP Pulse Ox 98 F 90 18 201/114 95 04/26/19 13:31 04/26/19 13:31 04/26/19 13:31 04/26/19 13:31 04/26/19 13:31 Vital Signs Reviewed: Yes Appearance: Positive: Well-Appearing, Well-Nourished Skin: Positive: Skin Color Reflects Adequate Perfusion, Other - discolorations of the R index and R little finger Head/Face: Positive: Normal Head/Face Inspection Eyes: Positive: EOMI Respiratory/Lung Sounds: Positive: Breath Sounds Present Cardiovascular: Positive: RRR Musculoskeletal: Positive: Pain @ - Right distal tip of the R index finger and R little finger Neurological: Positive: Speech Normal Psychiatric: Positive: Affect/Mood Appropriate Diagnostics - Vital Signs Vital Signs Temp Pulse Resp BP Pulse Ox 04/26/19 16:00 74 97 04/26/19 15:49 182/68 04/26/19 15:48 66 98 04/26/19 13:31 98 F 90 18 201/114 95 - Laboratory Lab Statement: Any lab studies that have been ordered have been reviewed, and results considered in the medical decision making process. Course/Dx - Course Course Of Treatment: Discoloration of the right index and small finger tips. This is been present times approximate 2 weeks. A right upper extremity duplex arterial ultrasound in [facility] was ordered immediately on arrival. This shows right upper extremity arterials are patent up to distal radial and ulnar arteries. No flow in right second and fifth digits. 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 Recommendation: Transfer to acute care facility where the patient can receive arteriography and slow catheter TPA infusion. Nitropaste can be applied to affected fingers. Calcium channel poncho therapy, nifedipine 30 mg by mouth daily, could be considered to address Raynaud's syndrome. Discussed with [facility] and Dr. Holliday in ED with acceptance. Patient prefers to go by private vehicle. - Diagnoses Provider Diagnoses: Digital arterial occlusive disease, Limb ischemia - Physician Notifications Discussed Care of Patient With: Niraj Mccain - consultation Instructed by Provider To: Transfer Admit/Transition Orders Completed By ED Provider: Yes Reason For Transfer: Specialty or service not available at [facility] [place]. Discharge - Sign-Out/Discharge Documenting (check all that apply): Patient Departure Patient Received Moderate/Deep Sedation with Procedure: No - Discharge Plan Condition: Good Disposition: TRANS HIGHER LVL OF CARE FAC Referrals: Tali Carter MD [Primary Care Provider] - - Billing Disposition and Condition Condition: GOOD Disposition: Trans Higher Lvl of Care Fac
[2019-04-26 17:31] VITALS: BP 190/78
== END | disposition short-term general hospital (02) ==
LOC: ED 13:27
DX: I73.9 Peripheral vascular disease, unspecified (principal); I99.8 Other disorder of circulatory system; I10 Essential (primary) hypertension; Z79.899 Other long term (current) drug therapy; Z87.891 Personal history of nicotine dependence
CPT/HCPCS: 99283